=== PATIENT | female | born 1940 | race Caucasian/White ===

== ENCOUNTER → 2019-10-07 08:51 | Outpatient (BNVA) | payer MEDICARE, MEDICAID, SELFPAY | PROVIDERS: Family Provider Nurse Practitioner; Visit Provider Nurse Practitioner Family | DX: E11.9 Type 2 diabetes mellitus without complications (principal); R07.9 Chest pain, unspecified; I10 Essential (primary) hypertension | CPT/HCPCS: 80061; 83036 ==

== ENCOUNTER 2019-10-09 23:34 | Emergency (ER) | payer MEDICARE, MEDICAID, SELFPAY ==
--- NOTE | 2019-10-09 23:40 | XR_ITS ---
WS: [id number] PORTABLE CHEST HISTORY: cp COMPARISON: 09/07/2018 Hyperinflated lungs with emphysema. No pneumonia. Eventration RIGHT hemidiaphragm. Normal vasculature. No pleural effusion or pneumothorax. Cardiac size: Normal. Mediastinum/Aorta: Ectatic thoracic aorta with mild atherosclerosis. No osseous abnormality seen. XR/XR chest 1V portable [id number] IMPRESSION: Stable chest with mild chronic emphysema.
--- NOTE | 2019-10-09 23:40 | ECG_ITS ---
Measurements Intervals [place] Rate: 63 P: 62 WI: 242 QRS: 63 QRSD: 89 T: 54 QT: 376 QTc: 388 SINUS RHYTHM WITH FIRST DEGREE AV BLOCK Compared to ECG 04/21/2018 02:40:10 Sinus bradycardia no longer present Electronically Signed On 10-10-2019 20:04:35 PUBLIC ADDRESS SYSTEM INSTALLER by Kalyn Tyler M.D. [id number]
--- NOTE | 2019-10-09 23:44 | ED_ITS ---
Entered by Idalia Phillips, acting as scribe for Cesar Fuentes DO Oct 09, 2019 23:34 HPI - Chest Pain General: Chief Complaint: Chest Pain Stated Complaint: CHEST PAIN Time Seen by Provider: 10/09/19 23:40 Source: patient Mode of arrival: EMS Limitations: no limitations History of Present Illness: HPI narrative: 79 yo f came to the er [facility] Ems for chest pain. Onset was today. Pt states that she is having some chest pain. Pts family states that the longterm staff gave her 3 nitro. Family states that also has had a cough. MD complaint: chest pain and other (cough) Onset (ago): day(s) (today) Timing of current episode: still present Prior episodes: Yes Onset: during rest Severity: mild Quality: tightness Relieving factors: nothing Exacerbating factors: nothing Associated symptoms: Deny fever(s) or syncope Treatment prior to arrival: aspirin (325) and nitroglycerin (3) Related Data: On Oral Contraceptives: No Review of Systems Const: Denies: fever or chills Eyes: Denies: change in vision ENMT: Denies: throat pain or nasal congestion Card: Reports: chest pain; Denies: irregular heart rhythm, edema or syncope Resp: Reports: productive cough : Denies: difficulty urinating Neuro: Denies: headache or dizziness PFSH ED PFSH: Statuses (acute, chronic, etc) shown below reflect problem list status as previously entered and may not be historically accurate Medical History (Updated 10/10/19 @ 03:20 by Cesar Fuentes DO) Chest pain (Acute) Diabetes (Acute) HTN (hypertension) (Acute) Osteoporosis (Acute) Social History (Updated 10/07/19 @ 08:35 by Idalia Araujo LPN) Smoking and tobacco status: never smoked Alcohol intake: never Caregiver/support person: Yes Household members: caregiver Housing: House Marital status: Single Physical Exam Const: GENERAL APPEARANCE: well developed ORIENTATION/CONSCIOUSNESS: Yes oriented to person and Yes oriented to place; not oriented to time HENMT: COMMON NORMALS: normocephalic, external ears normal and external nose normal HEAD & SCALP: normocephalic; no scalp tenderness FACE & SINUS: normal facial exam NOSE: external nose normal and no nasal discharge EXTERNAL EAR: Yes external ears normal THROAT: posterior oropharynx normal Eye: COMMON NORMALS: PERRL and conjunctivae normal EYELID: eyelids normal CONJUNCTIVA: Yes conjunctivae normal PUPIL: Yes PERRL Chest: COMMONS NORMALS: inspection of chest normal CHEST: No tenderness Resp: COMMON NORMALS: clear to auscultation bilaterally EFFORT & INSPECTION: No tachypneic, No respiratory distress, No retractions, No uses accessory muscles and No tracheal deviation AUSCULTATION: clear to auscultation bilaterally, no rhonchi, no wheezes and lung sounds not diminished Cardio: COMMON NORMALS: regular rate and regular rhythm RATE: regular rate RHYTHM: regular rhythm HEART SOUNDS: no murmurs PERIPHERAL PULSES: radial pulses present GI: INSPECTION: No abdominal distension AUSCULTATION: No hyperactive bowel sounds and No hypoactive bowel sounds PALPATION: No guarding and No rigid PERCUSSION: no dullness to percussion and no tympanic to percussion Neuro: SENSORIUM/ORIENTATION: Yes oriented to person, Yes oriented to place and No oriented to time Psych: COMMON NORMALS: mental status grossly normal Skin: COMMON NORMALS: no rashes or lesions noted GENERAL SKIN EXAM: no rashes or lesions noted Course Vital Signs: Vital signs: Vital Signs Temperature 97.3 F L 10/09/19 23:50 Pulse Rate 62 10/10/19 02:19 Respiratory Rate 16 10/10/19 02:19 Blood Pressure 109/54 10/10/19 02:19 Pulse Oximetry 94 10/10/19 02:19 MDM - Chest Pain MDM Narrative: Medical decision making narrative: 79-year-old female with chest discomfort. No improvement with nitroglycerin. Vitals are normal. Hemoglobin is 10.5. White blood cell count 6.6. Other laboratory is benign. X-rays show no pneumonia. EKG shows a sinus bradycardia with first-degree AV block. This is in 2 separate settings, 2 hours apart. Her troponin did not elevate. Lab Data: Labs: Lab Results 10/09/19 10/09/19 10/09/19 Range/Units 00:06 00:06 00:06 WBC 6.6 (4.0-10.0) 10^3/ uL RBC 3.56 L (4.1-5.3) 10^6/u L Hgb 10.5 L (11.5-15.3) g/dL Hct 32.8 L (37.0-47.0) % MCV 92.1 (81-99) fL MCH 29.5 (28.0-34.0) pg MCHC 32.0 (30.0-36.0) g/dL RDW 13.4 (12.1-15.1) % Plt Count 228 (130-400) 10^3/c mm MPV 11.3 H (7.4-10.4) fL Neut % (Auto) 41.5 % Lymph % (Auto) 40.3 % Hern[place] % (Auto) 13.2 % Eos % (Auto) 4.0 % Baso % (Auto) 0.8 % Neut # (Auto) 2.7 (1.8-7.7) 10^3/u L Lymph # (Auto) 2.7 (0.8-4.8) 10^3/u L Hernando # (Auto) 0.9 (0.2-0.9) 10^3/u L Eos # (Auto) 0.3 (0.0-0.8) 10^3/u L Baso # (Auto) 0.1 (0.0-0.1) 10^3/u L Nucleated RBC % (a uto) 0 % Nucleated RBCs # 0.0 /100WBC PT 13.30 (10.5-13.3) SECO NDS INR 0.98 (0.8-1.2) APTT 27.2 (23.9-36.7) SECO NDS Sodium 134 L (136-145) mmol/L Potassium 4.1 (3.5-5.1) mmol/L Chloride 100 (98-107) mmol/L Carbon Dioxide 26 (22-29) mmol/L Anion Gap 12.1 (5-19) BUN 15 (8-23) mg/dL Creatinine 0.8 (0.5-0.9) mg/dL Glucose 109 (65-115) mg/dL Calcium 10.1 (8.5-10.5) mg/dL Total Bilirubin 0.2 (0.15-1.2) mg/dL AST 18 (0-32) U/L ALT 11 (0-33) U/L Alkaline Phosphata se 68 (35-105) IU/L Troponin T Baselin e (0-10) ng/mL Troponin T 120 Min [place] (0-10) ng/mL Delta Troponin T (0-10) ABS# NT-Pro-B Natriuret Pep 24 (0-450) pg/mL Total Protein 6.9 (6.6-8.7) g/dL Albumin 3.7 (3.5-5.2) g/dL Globulin 3.2 (1.3-4.6) g/dL Urine Color (Yellow) Urine Appearance (CLEAR) Urine pH (5-7) Ur Specific Gravit y (1.005-1.030) Urine Protein (Negative) Urine Glucose (UA) (Normal) Urine Ketones (Negative) Urine Occult Blood (Negative) Urine Nitrate (Negative) Urine Bilirubin (NEGATIVE) Urine Urobilinogen (Negative) mg/dL Ur Leukocyte Gloria ase (Negative) 10/09/19 10/10/19 10/10/19 Range/Units 00:06 01:35 02:05 WBC (4.0-10.0) 10^3/ uL RBC (4.1-5.3) 10^6/u L Hgb (11.5-15.3) g/dL Hct (37.0-47.0) % MCV (81-99) fL MCH (28.0-34.0) pg MCHC (30.0-36.0) g/dL RDW (12.1-15.1) % Plt Count (130-400) 10^3/c mm MPV (7.4-10.4) fL Neut % (Auto) % Lymph % (Auto) % Hernando % (Auto) % Eos % (Auto) % Baso % (Auto) % Neut # (Auto) (1.8-7.7) 10^3/u L Lymph # (Auto) (0.8-4.8) 10^3/u L [place] # (Auto) (0.2-0.9) 10^3/u L Eos # (Auto) (0.0-0.8) 10^3/u L Baso # (Auto) (0.0-0.1) 10^3/u L Nucleated RBC % (a uto) % Nucleated RBCs # /100WBC PT (10.5-13.3) SECO NDS INR (0.8-1.2) APTT (23.9-36.7) SECO NDS Sodium (136-145) mmol/L Potassium (3.5-5.1) mmol/L Chloride (98-107) mmol/L Carbon Dioxide (22-29) mmol/L Anion Gap (5-19) BUN (8-23) mg/dL Creatinine (0.5-0.9) mg/dL Glucose (65-115) mg/dL Calcium (8.5-10.5) mg/dL Total Bilirubin (0.15-1.2) mg/dL AST (0-32) U/L ALT (0-33) U/L Alkaline Phosphata se (35-105) IU/L Troponin T Baselin e 10 (0-10) ng/mL Troponin T 120 Min [place] 9.36 (0-10) ng/mL Delta Troponin T -0.64 L (0-10) ABS# NT-Pro-B Natriuret Pep (0-450) pg/mL Total Protein (6.6-8.7) g/dL Albumin (3.5-5.2) g/dL Globulin (1.3-4.6) g/dL Urine Color Yellow (Yellow) Urine Appearance Clear (CLEAR) Urine pH 5 (5-7) Ur Specific Gravit y 1.020 (1.005-1.030) Urine Protein Neg (Negative) Urine Glucose (UA) Norm (Normal) Urine Ketones Negative (Negative) Urine Occult Blood Neg (Negative) Urine Nitrate Negative (Negative) Urine Bilirubin Neg (NEGATIVE) Urine Urobilinogen 1 H (Negative) mg/dL Ur Leukocyte Gloria ase Negative (Negative) Discharge Plan Discharge Patient Disposition: Home, Self-Care Clinical Impression: Chest pain Qualifiers: Chest pain type: unspecified Qualified Code(s): R07.9 - Chest pain, unspecified Condition: Stable Prescriptions: No Action metformin 500 mg tablet 500 mg PO BID RF: 0 albuterol sulfate [ProAir HFA] 90 mcg/actuation HFA aerosol inhaler 2 puff INHALATION Q6H PRN (Reason: Shortness Of Breath Or Wheezing) RF: 0 promethazine-DM 6.25-15 mg/5 mL syrup 5 ml PO Q6H PRN (Reason: Cough) RF: 0 paroxetine HCl 20 mg tablet 20 mg PO QDAY RF: 0 rivastigmine tartrate 3 mg capsule 3 mg PO BID RF: 0 omeprazole 20 mg capsule,delayed release(DR/EC) 40 mg PO QDAY RF: 0 omega-3 fatty acids [Fish Oil Concentrate] 1,000 mg capsule 1,000 mg PO BID RF: 0 Calcium 600 + Minerals 600 mg calcium- 200 unit tablet 1 tab PO BID RF: 0 meloxicam [Mobic] 15 mg tablet 15 mg PO QDAY RF: 0 lisinopril 5 mg tablet 5 mg PO QDAY RF: 0 raloxifene 60 mg tablet 60 mg PO QDAY RF: 0 acetaminophen [Tylenol] 325 mg tablet 325 mg PO QID PRN (Reason: Pain, Moderate) RF: 0 loperamide 2 mg capsule 4 mg PO DIRECTED PRN (Reason: Diarrhea) RF: 0 calcitonin (salmon) 200 unit/actuation spray,non-aerosol 1 spray intranasal (ALT) QDAY RF: 0 isosorbide mononitrate 30 mg Tablet Extended Release 24 Hr 15 mg PO BID RF: 0 ondansetron 8 mg Tablet,Disintegrating 8 mg PO Q8H PRN (Reason: Nausea) RF: 0 nitroglycerin 0.4 mg Tablet, Sublingual 0.4 mg SUBLINGUAL Q5M PRN (Reason: Chest Pain) RF: 0 Vitamin D2 1,250 mcg (50,000 unit) Capsule 50,000 unit PO DIRECTED RF: 0 Discharge Orders: Discharge Order (Routine); Ordered 10/10/19 Ordered By: Cesar Fuentes Referrals: Sharon Nava, [employer] [Family Provider] - Discharge Diet: Advance as tolerated Discharge Activity: Increase activity as tolerated Patient Instructions: Chest Pain (ED) Activity Restrictions/Additional Instructions: Return for worsening chest pain, shortness of breath, fever greater than 100, productive cough, other concerning symptoms Coding Level of Care Code ED Director Athletic for Chg Fwd The documentation recorded by the Alan massey Stephanie Lyn, accurately reflects the service I personally performed and the decisions made by Alfredo marcus Jeremy John, DO Oct 09, 2019 23:34
[2019-10-09 23:50] VITALS: BP 123/87; PULSE 64; RESP 16; TEMP 36.3; O2SAT 96; BMI 23.8
[2019-10-10 00:18] LABS: Basophils # 0.1 10^3/uL (0.0-0.1); Basophils % 0.8 %; Eosinophils # 0.3 10^3/uL (0.0-0.8); Hematocrit 32.8 % (37.0-47.0); Hemoglobin 10.5 g/dL (11.5-15.3); Lymphocytes # 2.7 10^3/uL (0.8-4.8); Lymphocytes % 40.3 %; Mean Corpuscular Hemoglobin 29.5 pg (28.0-34.0); Mean Corpuscular Volume 92.1 fL (81-99); Mean Platelet Volume 11.3 fL (7.4-10.4); Monocytes # 0.9 10^3/uL (0.2-0.9); Monocytes % 13.2 %; Neutrophils # 2.7 10^3/uL (1.8-7.7); Neutrophils % 41.5 %; Nucleated Red Blood Cells % 0 %; Platelet Count 228 10^3/cmm (130-400); Red Blood Count 3.56 10^6/uL (4.1-5.3); Red Cell Distribution Width 13.4 % (12.1-15.1); White Blood Count 6.6 10^3/uL (4.0-10.0)
[2019-10-10 00:31] LABS: INR 0.98 (0.8-1.2)
[2019-10-10 00:32] LABS: Partial Thromboplastin Time 27.2 SECONDS (23.9-36.7)
[2019-10-10 00:38] LABS: Troponin(5th) Baseline 10 ng/mL (0-10)
[2019-10-10 00:46] LABS: Alanine Aminotransferase 11 U/L (0-33); Albumin Level 3.7 g/dL (3.5-5.2); Alkaline Phosphatase 68 IU/L (35-105); Anion Gap 12.1 (5-19); Aspartate Amino Transferase 18 U/L (0-32); Blood Urea Nitrogen 15 mg/dL (8-23); Calcium 10.1 mg/dL (8.5-10.5); Carbon Dioxide 26 mmol/L (22-29); Chloride 100 mmol/L (98-107); Globulin 3.2 g/dL (1.3-4.6); Glucose 109 mg/dL (65-115); NT Pro B Type Natriuretic Pept 24 pg/mL (0-450); Potassium 4.1 mmol/L (3.5-5.1); Sodium 134 mmol/L (136-145); Total Bilirubin 0.2 mg/dL (0.15-1.2); Total Protein 6.9 g/dL (6.6-8.7)
[2019-10-10] MEDS: alum-mag-hydroxide-sime 30 mL UDC 10 ML PO (01:04)
[2019-10-10] MEDS: lidocaine 2% viscous 15 mL UDC 10 ML MUCOUS MEM (01:04)
[2019-10-10 01:06] VITALS: PULSE 65; RESP 16; O2SAT 94
--- NOTE | 2019-10-10 01:40 | ECG_ITS ---
Measurements Intervals [place] Rate: 58 P: 61 NM: 240 QRS: 53 QRSD: 89 T: 57 QT: 382 QTc: 378 SINUS BRADYCARDIA WITH FIRST DEGREE AV BLOCK Compared to ECG 04/21/2018 02:40:10 No significant changes Electronically Signed On 10-10-2019 20:07:56 BULK SYSTEM OPERATOR by Kalyn Tyler M.D. [id number]
[2019-10-10 01:50] LABS: Add Urine Microscopic? NO
[2019-10-10] MEDS: ondansetron 2 mg/ML SDV 2 mL 4 MG IVP (02:15)
[2019-10-10 02:16] VITALS: RESP 16
[2019-10-10] MEDS: morphine 4 mg/mL SDV 1 mL 2 MG IVP (02:16)
[2019-10-10 02:19] VITALS: BP 109/54; PULSE 62; RESP 16; O2SAT 94
[2019-10-10 02:39] LABS: Troponin 5 2HR 9.36 ng/mL (0-10)
[2019-10-10 02:39] LABS: Bilirubin Urine Neg (NEGATIVE); Blood Urine Neg (Negative); Glucose Urine UA Norm (Normal); Ketones Urine Negative (Negative); Leukocyte Esterase Urine Negative (Negative); Nitrate Urine Negative (Negative); Protein Urine Neg (Negative); Urine Appearance Clear (CLEAR); Urine Color Yellow (Yellow); Urobilinogen Urine 1 mg/dL (Negative); pH Urine 5 (5-7)
[2019-10-10 02:40] LABS: Troponin 5 2HR Delta -0.64 ABS# (0-10)
[2019-10-10 04:22] VITALS: BP 102/56; PULSE 68; RESP 16; O2SAT 94
== END 2019-10-10 04:23 | disposition home or self-care (01) ==
PROVIDERS: Emergency Provider Emergency Medicine; Family Provider Nurse Practitioner
DX: R07.9 Chest pain, unspecified (principal); Z79.84 Long term (current) use of oral hypoglycemic drugs; E11.9 Type 2 diabetes mellitus without complications; I10 Essential (primary) hypertension
CPT/HCPCS: 71045; 80053; 81003; 83880; 84484; 85025; 85610; 85730; 93005; 96374; 96375; 99282; 99284; A9270; J2270; J2405

== ENCOUNTER → 2019-10-17 12:58 | Outpatient (BNVA) | payer MEDICARE, MEDICAID, SELFPAY | PROVIDERS: Family Provider Nurse Practitioner; Visit Provider Specialist | DX: F03.90 Unspecified dementia, unspecified severity, without behavioral disturbance, psychotic disturbance, mood disturbance, and anxiety (principal); F02.80 Dementia in other diseases classified elsewhere, unspecified severity, without behavioral disturbance, psychotic disturbance, mood disturbance, and anxiety | CPT/HCPCS: 99213 ==

== ENCOUNTER 2019-12-15 08:03 | Outpatient (CLI) | payer MEDICARE, MEDICAID, SELFPAY ==
[2019-12-15 08:54] VITALS: BMI 20.7
--- NOTE | 2019-12-15 09:01 | ECG_ITS ---
NAME OF STUDY: LEXISCAN SESTAMIBI STRESS TEST INDICATION: Chest Pain PROCEDURE: At the baseline, the blood pressure was 133/77 mmHg, oxygen saturation 93% with a heart rate of 53 bpm. The electrocardiogram showed possibly sinus rhythm, normal axis with poor baseline. The Lexiscan was infused over a period of 20 seconds. A total of 0.4 milligrams of Lexiscan was infused. The stress phase was continued for a total of 5 minutes. Heart rate at the end of the stress phase was 74 bpm, oxygen saturation 94% with a blood pressure 134/68 mmHg. The EKG at the peak infusion revealed no significant ST-T wave changes. Sestamibi was injected 20 seconds after the Lexiscan infusion. Blood pressure at the end of the recovery phase was 137/69 mmHg, oxygen saturation 95% with a heart rate of 72 beats per minute. CONCLUSION: 1. No significant EKG changes with the LexiScan infusion. 2. No LexiScan induced chest pain or cardiac arrhythmia. 3. Normal blood pressure and heart rate response. 4. Sestamibi/sestamibi perfusion scan pending; see separate report. Electronically Signed On 12-15-2019 15:25:50 CDT by Nancy Herring M.D. [id number]
--- NOTE | 2019-12-15 09:01 | NMCV_ITS ---
NM yazan perf SPECT r/s* [id number] Kristi Marinelli Age: 79 Gender: F : 1940 Exam Date: 12/15/2019 09:40 Ordering Phys: Nancy Herring MD ([email or web address]) Technologist: LEXY Nolasco Exam Location: [facility] Indications: CHEST PAIN STRESS TEST Please see separate stress test report in [facility] for full findings IMAGE PROTOCOL Rest/Stress 1 Lexiscan Day Radiopharmaceutical Dose (mCi) Administration Site Administered by Rest: Tc-99m 10.7 IV LEXY Nolasco Sestamibi Stress:Tc-99m 32.4 IV LEXY Ruiz Sestamibi Rest: 15-Dec-2019 60 Discovery 630 Stress: 15-Dec-2019 30 Discovery 630 0.4mg Lexiscan. Images obtained in supine and prone position. SPECT RESULTS Technical Quality: Excellent Raw Data Analysis: Normal Image Corrections: Patient motion artifact - motion correction applied to stress and rest images. Summed Stress Score: 1 Summed Rest Score: 2 Summed Difference Score: 0 PERFUSION FINDINGS Small size perfusion abnormality of mild severity of apical inferior wall with improved tracer uptake on stress images. Very small sized fixed defect of apical garcia on rest and stress images. FUNCTIONAL RESULTS (calculated via Gated SPECT) Stress Image LV EF (%): 75 Stress EDV (mL):64 TID: 0.97 Stress ESV (mL):16 FUNCTIONAL FINDINGS: The left ventricle is normal in size. Transient Ischemia Dilatation of 0.97. There is normal left ventricular systolic function. The left ventricular ejection fraction is normal with a value of 75%. There is normal left ventricular wall thickening. Normal end-diastolic and end-systolic volumes. IMPRESSIONS 1. Small size perfusion abnormality of mild severity of apical inferior and apical garcia. These findings are likely suggestive of attenuation artifact. 2. Overall left ventricular systolic function is normal without regional wall motion abnormalities. 3. The left ventricular ejection fraction is normal with a value of 75%. 4. No coronary ischemia based on the study. Nancy Herring MD (Electronically Signed) Final Date: 15 December 2019 15:32 S
--- NOTE | 2019-12-15 10:19 | SUR.PREOP ---
Patient reports no pain or discomfort prior to the start of the procedure.
[2019-12-15] MEDS: regadenoson 0.4 Mg/5 ml Syringe IVP (10:24)
== END 2019-12-15 08:04 | disposition home or self-care (01) ==
LOC: RAD 08:09
PROVIDERS: Family Provider Nurse Practitioner; PCP Nurse Practitioner; Visit Provider Internal Medicine Cardiovascular Disease
DX: R07.9 Chest pain, unspecified (principal)
CPT/HCPCS: 78452; 93017; A9500; J2785

== ENCOUNTER → 2020-01-04 09:21 | Outpatient (BNVA) | payer MEDICARE, MEDICAID, SELFPAY | PROVIDERS: Family Provider Nurse Practitioner; PCP Nurse Practitioner; Visit Provider Nurse Practitioner | DX: R53.83 Other fatigue (principal); E11.9 Type 2 diabetes mellitus without complications; E55.9 Vitamin D deficiency, unspecified; R07.9 Chest pain, unspecified; K21.9 Gastro-esophageal reflux disease without esophagitis; I10 Essential (primary) hypertension | CPT/HCPCS: 80053; 81000; 82044; 82607; 83036; 84443; 85025 ==

== ENCOUNTER → 2020-01-30 10:30 | Outpatient (BNVA) | payer MEDICARE, MEDICAID, SELFPAY | PROVIDERS: Family Provider Nurse Practitioner; PCP Nurse Practitioner; Visit Provider Nurse Practitioner | DX: E11.9 Type 2 diabetes mellitus without complications (principal); Z11.1 Encounter for screening for respiratory tuberculosis; I10 Essential (primary) hypertension; F79 Unspecified intellectual disabilities; K21.9 Gastro-esophageal reflux disease without esophagitis | CPT/HCPCS: 80053; 81000; 86580 ==

== ENCOUNTER → 2020-02-27 09:05 | Outpatient (BNVA) | payer MEDICARE, MEDICAID, SELFPAY | PROVIDERS: Family Provider Nurse Practitioner; PCP Nurse Practitioner; Visit Provider Nurse Practitioner | DX: E83.52 Hypercalcemia (principal) | CPT/HCPCS: 82310; 83970 ==

== ENCOUNTER → 2020-03-27 14:15 | Outpatient (BNVA) | payer MEDICARE, MEDICAID, SELFPAY | PROVIDERS: Family Provider Nurse Practitioner; PCP Nurse Practitioner; Visit Provider Nurse Practitioner | DX: R05 Cough (principal) | CPT/HCPCS: 71046 ==

== ENCOUNTER → 2020-04-05 09:27 | Outpatient (BNVA) | payer MEDICARE, MEDICAID, SELFPAY | PROVIDERS: Family Provider Nurse Practitioner; PCP Nurse Practitioner; Visit Provider Nurse Practitioner | DX: E11.9 Type 2 diabetes mellitus without complications (principal); E55.9 Vitamin D deficiency, unspecified; R07.9 Chest pain, unspecified; K21.9 Gastro-esophageal reflux disease without esophagitis; J43.9 Emphysema, unspecified; J40 Bronchitis, not specified as acute or chronic; R05 Cough | CPT/HCPCS: 80053; 83036; 85025 ==

== ENCOUNTER → 2020-04-18 08:21 | Outpatient (BNVA) | payer MEDICARE, MEDICAID, SELFPAY | PROVIDERS: Family Provider Nurse Practitioner; PCP Nurse Practitioner; Visit Provider Specialist | DX: G31.83 Neurocognitive disorder with Lewy bodies (principal); F02.80 Dementia in other diseases classified elsewhere, unspecified severity, without behavioral disturbance, psychotic disturbance, mood disturbance, and anxiety | CPT/HCPCS: 99213 ==

== ENCOUNTER 2020-06-15 13:36 | Outpatient (CLI) | payer MEDICARE, MEDICAID, SELFPAY ==
--- NOTE | 2020-06-15 14:07 | XR_ITS ---
WS: [id number] Bone mineral density performed on a Personeta IDXA 06/15/2020 Clinical data: POST MENOPAUSAL Comparison study: DEXA scan, 02/08/2015. Findings: The first 4 lumbar vertebral bodies demonstrated the bone mineral density of 1.381 g/cm2 for a young adult T score of 1.7. Measurement of the left hip reveals a bone mineral density of 0.791 g/cm2 with a young adult T score of -1.7. Measurement of the right hip reveals the bone mineral density of 0.775 g/cm2 for young adult T score of -1.9. XR/XR DEXA axial skeleton* [id number] Impression: 1. Normal bone mineral density of the lumbar spine although the bone mineral de nsity has diminished slightly from before. 2. Osteopenia of both hips with a slight decrease in bone mineral density from the previous study.
== END 2020-06-15 13:37 | disposition home or self-care (01) ==
LOC: RADWPI 13:40
PROVIDERS: Family Provider Nurse Practitioner; PCP Nurse Practitioner; Visit Provider Nurse Practitioner Family
DX: Z78.0 Asymptomatic menopausal state (principal); M85.88 Other specified disorders of bone density and structure, other site
CPT/HCPCS: 77080

== ENCOUNTER 2020-06-27 13:30 | Outpatient (CLI) | payer MEDICARE, MEDICAID, SELFPAY ==
--- NOTE | 2020-06-27 13:38 | MM_ITS ---
WS: [id number] BILATERAL SCREENING DIGITAL MAMMOGRAM WITH CAD HISTORY: HX OF BREAST CA COMPARISON: 04/28/2019, 09/02/2018 and 08/17/2017 Bilateral CC and MLO views submitted. Computer aided detection analyzed. Breast composition: There are scattered areas of fibroglandular density. No suspicious masses, microc alcifications or architectural distortion. Numerous benign calcifications in each breast. Biopsy clip with architectural distortion in the central RIGHT breast is stable. No change in the fibroglandular pattern in the LEFT breast. MM/[id number] IMPRESSION: BI-RADS: 2-Benign FOLLOW UP: 1 Year Follow-up
== END 2020-06-27 13:31 | disposition home or self-care (01) ==
LOC: RADSHAW 13:36
PROVIDERS: PCP Nurse Practitioner; Visit Provider Nurse Practitioner
DX: Z85.3 Personal history of malignant neoplasm of breast (principal)
CPT/HCPCS: 77066

== ENCOUNTER → 2020-08-01 09:16 | Outpatient (BNVA) | payer MEDICARE, MEDICAID, SELFPAY | PROVIDERS: PCP Nurse Practitioner; Visit Provider Specialist | DX: G31.83 Neurocognitive disorder with Lewy bodies (principal); F02.80 Dementia in other diseases classified elsewhere, unspecified severity, without behavioral disturbance, psychotic disturbance, mood disturbance, and anxiety | CPT/HCPCS: 99213 ==

== ENCOUNTER → 2020-08-02 10:38 | Outpatient (BNVA) | payer MEDICARE, MEDICAID, SELFPAY | PROVIDERS: PCP Nurse Practitioner; Visit Provider Nurse Practitioner | DX: E11.9 Type 2 diabetes mellitus without complications (principal) | CPT/HCPCS: 80053; 80061; 82043; 83036; 83735 ==

== ENCOUNTER → 2020-10-25 08:53 | Outpatient (BNVA) | payer MEDICARE, MEDICAID, SELFPAY | PROVIDERS: PCP Nurse Practitioner; Visit Provider Nurse Practitioner Family | DX: E11.9 Type 2 diabetes mellitus without complications (principal); E55.9 Vitamin D deficiency, unspecified; K21.9 Gastro-esophageal reflux disease without esophagitis; I25.10 Atherosclerotic heart disease of native coronary artery without angina pectoris; I10 Essential (primary) hypertension; J43.9 Emphysema, unspecified; F79 Unspecified intellectual disabilities | CPT/HCPCS: 80053; 80061; 82306; 83036; 84443; 85025 ==

== ENCOUNTER → 2021-01-08 08:42 | Outpatient (BNVA) | payer MEDICARE, MEDICAID, SELFPAY | PROVIDERS: PCP Nurse Practitioner; Visit Provider Nurse Practitioner | DX: E11.9 Type 2 diabetes mellitus without complications (principal); I10 Essential (primary) hypertension; E55.9 Vitamin D deficiency, unspecified; I25.10 Atherosclerotic heart disease of native coronary artery without angina pectoris; F43.12 Post-traumatic stress disorder, chronic | CPT/HCPCS: 80053; 80061; 83036; 85025; 86580 ==

== ENCOUNTER → 2021-01-09 09:06 | Outpatient (BNVA) | payer MEDICARE, MEDICAID, SELFPAY | PROVIDERS: PCP Nurse Practitioner; Visit Provider Specialist | DX: G31.83 Neurocognitive disorder with Lewy bodies (principal); F02.80 Dementia in other diseases classified elsewhere, unspecified severity, without behavioral disturbance, psychotic disturbance, mood disturbance, and anxiety | CPT/HCPCS: 99213 ==

== ENCOUNTER → 2021-07-30 10:28 | Outpatient (BNVA) | payer MEDICARE, MEDICAID, SELFPAY | PROVIDERS: PCP Nurse Practitioner; Visit Provider Specialist | DX: G31.83 Neurocognitive disorder with Lewy bodies (principal); F02.80 Dementia in other diseases classified elsewhere, unspecified severity, without behavioral disturbance, psychotic disturbance, mood disturbance, and anxiety | CPT/HCPCS: 99213 ==

== ENCOUNTER 2021-08-06 09:39 | Outpatient (CLI) | payer MEDICARE, MEDICAID, SELFPAY ==
--- NOTE | 2021-08-06 10:00 | MM_ITS ---
WS: [id number] BILATERAL DIGITAL DIAGNOSTIC MAMMOGRAM MAMMOGRAPHY WITH CAD CLINICAL INFORMATION: Z85.3 - Personal history of malignant neoplasm of breast HISTORY: COMPARISON: June 27, 2020 TECHNIQUE: Bilateral CC, MLO, and ML views. FINDINGS: Scattered fibroglandular densities bilaterally. Punctate and lucent centered calcifications. Secretor y rodlike calcifications. Biopsy marker right breast with parenchymal scarring. No suspicious focal mass, asymmetry, calcifications, or architectural distortion. No evidence of esther gnancy. MM/[id number] IMPRESSION: BI-RADS: 2-Benign FOLLOW UP: 1 Year Follow-up Recommend return to annual diagnostic mammography.
== END 2021-08-06 09:40 | disposition home or self-care (01) ==
LOC: RADSHAW 09:49
PROVIDERS: PCP Nurse Practitioner; Visit Provider Nurse Practitioner
DX: Z85.3 Personal history of malignant neoplasm of breast (principal)
CPT/HCPCS: 77066

== ENCOUNTER → 2022-01-01 09:42 | Outpatient (BNVA) | payer MEDICARE, MEDICAID, SELFPAY | PROVIDERS: PCP Nurse Practitioner; Visit Provider Nurse Practitioner | DX: E11.9 Type 2 diabetes mellitus without complications (principal); E55.9 Vitamin D deficiency, unspecified; I25.10 Atherosclerotic heart disease of native coronary artery without angina pectoris; I10 Essential (primary) hypertension | CPT/HCPCS: 80053; 80061; 82043; 82306; 83036; 84443; 85025 ==

== ENCOUNTER → 2022-07-15 08:28 | Outpatient (BNVA) | payer MEDICARE, MEDICAID, SELFPAY | PROVIDERS: PCP Nurse Practitioner; Visit Provider Specialist | DX: G30.9 Alzheimer's disease, unspecified (principal); F02.80 Dementia in other diseases classified elsewhere, unspecified severity, without behavioral disturbance, psychotic disturbance, mood disturbance, and anxiety; R26.89 Other abnormalities of gait and mobility | CPT/HCPCS: 99213 ==

== ENCOUNTER → 2022-08-05 09:13 | Outpatient (BNVA) | payer MEDICARE, MEDICAID, SELFPAY | PROVIDERS: PCP Nurse Practitioner; Visit Provider Nurse Practitioner | DX: E11.9 Type 2 diabetes mellitus without complications (principal); E55.9 Vitamin D deficiency, unspecified | CPT/HCPCS: 80053; 80061; 82306; 83036 ==

== ENCOUNTER 2022-08-07 09:39 | Outpatient (CLI) | payer MEDICARE, MEDICAID, SELFPAY ==
--- NOTE | 2022-08-07 09:49 | MM_ITS ---
WS: [id number] DIAGNOSTIC BILATERAL DIGITAL MAMMOGRAPHY WITH CAD HISTORY: Evaluate for neoplasm. History of breast cancer. COMPARISON: 08/06/2021 and 06/27/2020 TECHNIQUE: Bilateral craniocaudad, mediolateral oblique, and mediolateral views are submitted with to mosynthesis and SM. Computer aided detection utilized. Breast composition: There are scattered areas of fibroglandular density. Numerous calcifications are present within each breast. Area of spiculation and distortion with biopsy clip in the posterior cent ral RIGHT breast is stable. No new mass or suspicious grouping of calcifications. MM/[id number] IMPRESSION: BI-RADS: 2-Benign FOLLOW UP: 1 Year Follow-up
== END 2022-08-07 09:40 | disposition home or self-care (01) ==
LOC: RAD 09:41
PROVIDERS: PCP Nurse Practitioner; Visit Provider Nurse Practitioner
DX: Z12.39 Encounter for other screening for malignant neoplasm of breast (principal); Z85.3 Personal history of malignant neoplasm of breast
CPT/HCPCS: 77062; 77066; G0279

== ENCOUNTER → 2022-11-25 11:40 | Outpatient (BNVA) | payer MEDICARE, MEDICAID, SELFPAY | PROVIDERS: PCP Nurse Practitioner; Visit Provider Nurse Practitioner | DX: E78.2 Mixed hyperlipidemia (principal) | CPT/HCPCS: 80053; 80061; 85025 ==

== ENCOUNTER → 2023-02-17 11:53 | Outpatient (BNVA) | payer MEDICARE, MEDICAID, SELFPAY | PROVIDERS: PCP Nurse Practitioner; Visit Provider Nurse Practitioner | DX: G47.9 Sleep disorder, unspecified (principal); M48.02 Spinal stenosis, cervical region; E55.9 Vitamin D deficiency, unspecified; E78.2 Mixed hyperlipidemia; I25.10 Atherosclerotic heart disease of native coronary artery without angina pectoris; E11.9 Type 2 diabetes mellitus without complications; K21.9 Gastro-esophageal reflux disease without esophagitis; J06.9 Acute upper respiratory infection, unspecified | CPT/HCPCS: 80053; 80061; 82306; 83036; 85025 ==

== ENCOUNTER → 2023-02-24 09:44 | Outpatient (BNVA) | payer MEDICARE, MEDICAID, SELFPAY | PROVIDERS: PCP Nurse Practitioner; Visit Provider Specialist | DX: G30.9 Alzheimer's disease, unspecified (principal); F02.B0 Dementia in other diseases classified elsewhere, moderate, without behavioral disturbance, psychotic disturbance, mood disturbance, and anxiety | CPT/HCPCS: 99213 ==

== ENCOUNTER → 2023-04-02 10:35 | Outpatient (BNVA) | payer MEDICARE, MEDICAID, SELFPAY | PROVIDERS: PCP Nurse Practitioner; Visit Provider Nurse Practitioner Family | DX: R19.7 Diarrhea, unspecified (principal) | CPT/HCPCS: 74018; 85025 ==

== ENCOUNTER → 2023-04-06 12:33 | Outpatient (BNVA) | payer MEDICARE, MEDICAID, SELFPAY | PROVIDERS: PCP Nurse Practitioner; Visit Provider Nurse Practitioner | DX: R19.7 Diarrhea, unspecified (principal) | CPT/HCPCS: 87506 ==

== ENCOUNTER → 2023-04-13 14:55 | Outpatient (BNVA) | payer MEDICARE, MEDICAID, SELFPAY | PROVIDERS: PCP Nurse Practitioner; Visit Provider Nurse Practitioner | DX: R19.7 Diarrhea, unspecified (principal) | CPT/HCPCS: 83630; 87493 ==

== ENCOUNTER 2023-04-21 09:02 | Emergency (ER) | payer MEDICARE, MEDICAID, SELFPAY ==
--- NOTE | 2023-04-21 09:06 | ECG_ITS ---
[facility] Test Date: 2023-04-21 Pat Name: Kristi Marinelli Department: Room: Gender: Female Splicer Apprentice: : 1940 Requested By: Carson Laurent Order Number: [id number] Luh MD: Amina Velasquez M.D. Measurements Intervals [place] Rate: 70 P: 62 UT: 213 QRS: 59 QRSD: 70 T: 64 QT: 388 QTc: 419 Interpretive Statements SINUS RHYTHM WITH FIRST DEGREE AV BLOCK SEPTAL MYOCARDIAL INFARCTION , OF INDETERMINATE AGE [40+ ms Q WAVE IN V1/V2] Compared to ECG 10/10/2019 01:45:07 Myocardial infarct finding now present Sinus bradycardia no longer present Electronically Signed On 04-22-2023 19:56:24 CDT by Amina Velasquez M.D. [id number]
--- NOTE | 2023-04-21 09:06 | XR_ITS ---
WS: [id number] EXAMINATION: XR chest 1V portable [id number] REASON FOR EXAM: dyspnea/cough COMPARISON: 03/27/2020 ORDER DATE: 04/21/2023 9:26 AM TECHNIQUE: A single, portable frontal chest x-ray was obtained. X-RAY FINDINGS: The lungs are clear. Pleural spaces are clear. No pleural effusions or pneumothorax. Cardiomediastinal silhouette is unremarkable except for aortic atherosclerosis.. No evidence for pulm onary edema. Soft tissue and osseous structures are unremarkable. There is focal eventration of the medial right hemidiaphragm. IMPRESSION: No acute pulmonary change
--- NOTE | 2023-04-21 09:06 | ED_ITS ---
HPI - General Adult General: Chief complaint: Nausea/Vomiting/Diarrhea Stated complaint: ams , weakness, diarrhea Time Seen by Provider: 04/21/23 09:06 Source: patient Mode of arrival: ambulatory History of Present Illness: 82-year-old female presents emergency room with complaints of chronic diarrhea over the last 5 weeks. She been seen several times her primary care provider stool studies have been done ova and parasites were negative no pathogens. No recent antibiotics C. difficile was negative I have not had any blood in the stool. They are reporting over the last week she has been more confused. She has been started on loperamide she had some fecal incontinence no complaints of back pain or extremity pain. She is diabetic she is on galantamine 4 cognitive deficits she is also on Januvia. Reviewing her chart stool for C. difficile and enteric bacterial pathogens were negative she did have elevated lactoferrin level. Onset (ago): week(s) Relieving factors: none Exacerbating factors: none Associated symptoms: Deny chest pain, confusion, cough, diaphoresis, decreased appetite, dyspnea, fevers/chills, headache(s), malaise, nausea, rash, palpitations, seizures, short of breath, syncope, vomiting or weakness Review of Systems Const: Denies: fever(s), chills, malaise or diaphoresis ENMT: Denies: throat pain, ear or mastoid pain, nasal discharge or nasal congestion Card: Denies: chest pain, palpitations or syncope Resp: Denies: dyspnea GI: Denies: abdominal pain, nausea or vomiting : Denies: flank pain, difficulty voiding, dysuria, urinary frequency or urinary urgency Skin/Breast: Denies: rash Neuro: Denies: headache(s) or confusion PFSH ED PFSH: Medical History Bipolar disorder Cervical stenosis of spine Chest pain COPD (chronic obstructive pulmonary disease) with emphysema Coronary artery disease Depression Diabetes Gastric reflux History of breast cancer History of TIA (transient ischemic attack) HTN (hypertension) Mental disability OCD (obsessive compulsive disorder) Osteoporosis Vitamin D deficiency Surgical History History of lumpectomy Previous back surgery S/P hysterectomy Family History Other Cancer Stroke Social History Smoking and tobacco status: never smoked Second hand smoke exposure: No Smoking risk assessment/counseling performed?: No Alcohol intake: never Desire information about alcohol rehabilitation?: No Counseling given: No Substance/Drug Use: never Desire information about substance/drug rehabilitation?: No Counseling given: No Adopted: No Caregiver/support person: Yes Lives independently: No Household members: caregiver Housing: House Marital status: Single Number of children: 0 service: No Current occupational status: disabled Current occupational exposures/hazards: No Pets and animals: No Do you think of yourself as: Straight/Heterosexual Current gender identity: Female Physical Exam Const: GENERAL APPEARANCE: cooperative and comfortable ORIENTATION/CONSCIOUSNESS: Yes awake HENMT: COMMON NORMALS: normocephalic, atraumatic and hearing grossly normal bilaterally HEAD & SCALP: normocephalic and atraumatic Resp: COMMON NORMALS: normal respiratory effort, No retractions, No use of accessory muscles and clear to auscultation bilaterally AUSCULTATION: clear to auscultation bilaterally Cardio: COMMON NORMALS: regular rate, regular rhythm and No murmurs present (Cardio) RATE: regular rate RHYTHM: regular rhythm GI: COMMON NORMALS: Soft to palpation and No hepatosplenomegaly present AUSCULTATION: Yes normoactive bowel sounds PALPATION: Yes Soft to palpation, No Tenderness to palpation present (GI), No Guarding due to palpation present (GI) and Yes No hepatosplenomegaly present Extremity: COMMON NORMALS: normal to inspection, capillary refill normal, no clubbing, cyanosis or edema, no calf tenderness and no pedal edema Skin: COMMON NORMALS: no rashes or lesions noted GENERAL SKIN EXAM: no rashes or lesions noted Course Vital Signs: Vital signs: Vital Signs Temperature 98.4 F 04/21/23 09:13 Pulse Rate 91 04/21/23 10:02 Respiratory Rate 17 04/21/23 10:02 Blood Pressure 142/70 04/21/23 10:02 Pulse Oximetry 97 04/21/23 10:02 Oxygen Delivery Me thod Room Air 04/21/23 10:02 MDM - General Adult Medical Decision Making Stool for O&P pending. CT shows colitis previous stool culture stool lactoferrin. We will treat for colitis. I Kady have her stop her Januvia which can cause diarrhea her last glycosylated hemoglobin was 5.4 do not know that she needs that full-strength dose or even needs it at all. Follow-up with her primary care doctor if ONP is negative and symptoms do not improve with the antibiotics given she may need to have referral to GI. Medical Records I reviewed the patient's medical records. Lab Data I reviewed the patient's lab results. 04/21/23 09:40 04/21/23 09:40 Laboratory Results WBC 12.4 10^3/uL (4.0-10.0) H 04/21/23 09:40 RBC 3.96 10^6/uL (4.1-5.3) L 04/21/23 09:40 Hgb 11.8 g/dL (11.5-15.3) 04/21/23 09:40 Hct 37.3 % (37.0-47.0) 04/21/23 09:40 MCV 94.2 fl (81-99) 04/21/23 09:40 MCH 29.8 pg (28.0-34.0) 04/21/23 09:40 MCHC 31.6 g/dL (30.0-36.0) 04/21/23 09:40 RDW 13.3 % (12.1-15.1) 04/21/23 09:40 Plt Count 286 10^3/cmm (130-400) 04/21/23 09:40 MPV 10.5 fL (7.4-10.4) H 04/21/23 09:40 Neut % (Auto) 78.2 % 04/21/23 09:40 Lymph % (Auto) 11.6 % 04/21/23 09:40 [place] % (Auto) 7.9 % 04/21/23 09:40 Eos % (Auto) 1.1 % 04/21/23 09:40 Baso % (Auto) 0.6 % 04/21/23 09:40 Neut # (Auto) 9.65 10^3/uL (1.8-7.7) H 04/21/23 09:40 Lymph # (Auto) 1.4 10^3/uL (0.8-4.8) 04/21/23 09:40 [place] # (Auto) 1.0 10^3/uL (0.2-0.9) H 04/21/23 09:40 Eos # (Auto) 0.1 10^3/uL (0.0-0.8) 04/21/23 09:40 Baso # (Auto) 0.1 10^3/uL (0.0-0.1) 04/21/23 09:40 Nucleated RBC % (auto) 0 % 04/21/23 09:40 Nucleated RBCs # 0.0 /100WBC 04/21/23 09:40 Sodium 140 mmol/L (136-145) 04/21/23 09:40 Potassium 3.3 mmol/L (3.5-5.1) L 04/21/23 09:40 Chloride 105 mmol/L (98-107) 04/21/23 09:40 Carbon Dioxide 24 mmol/L (22-29) 04/21/23 09:40 Anion Gap 14.3 (5-19) 04/21/23 09:40 BUN 13 mg/dL (8-23) 04/21/23 09:40 Creatinine 0.6 mg/dL (0.5-0.9) 04/21/23 09:40 GFR Calculation Not Reportable 04/21/23 09:40 Glucose 113 mg/dL (65-115) 04/21/23 09:40 POC Glucose 114 mg/dL (70-110) H 04/21/23 09:26 Calculated Osmolality 291 mOsm/kg (285-295) 04/21/23 09:40 Calcium 9.7 mg/dL (8.5-10.5) 04/21/23 09:40 Total Bilirubin 0.2 mg/dL (0.15-1.2) 04/21/23 09:40 AST 15 U/L (0-32) 04/21/23 09:40 ALT 13 U/L (0-33) 04/21/23 09:40 Alkaline Phosphatase 74 U/L (35-105) 04/21/23 09:40 C-Reactive Protein 3.0 mg/L (0.0-4.9) 04/21/23 09:40 Total Protein 6.5 g/dL (6.6-8.7) L 04/21/23 09:40 Albumin 3.6 g/dL (3.5-5.2) 04/21/23 09:40 Globulin 2.9 g/dL (1.3-4.6) 04/21/23 09:40 TSH 2.22 uIU/mL (0.27-4.20) 04/21/23 09:40 Discharge Plan Discharge Patient Disposition: Home Clinical Impression: Colitis Condition: Stable Prescriptions: New Cipro 500 mg tablet 500 mg PO BID Qty: 14 0RF metronidazole 500 mg tablet 500 mg PO BID 7 Days Qty: 14 0RF Discontinued Januvia 50 mg tablet 50 mg PO DAILY Qty: 30 2RF No Action loperamide 2 mg capsule 4 mg PO DIRECTED PRN (Reason: Diarrhea) Perforomist 20 mcg/2 mL solution for nebulization 2 ml INHALATION Q12H Qty: 120 0RF (DME) nebulizers Misc See Rx Instructions .ROUTE .MEDSUPPLY Qty: 1 0RF Rx Instructions: daily budesonide [Pulmicort] 0.5 mg/2 mL suspension for nebulization 0.5 mg INHALATION BID Qty: 120 0RF (DME) blood-glucose meter [Blood Glucose Monitoring] Kit See Rx Instructions .ROUTE .MEDSUPPLY Qty: 1 0RF Rx Instructions: As directed (DME) lancets [BD Ultra Fine Lancets] 33 gauge misc See Rx Instructions .ROUTE .MEDSUPPLY Qty: 100 2RF Rx Instructions: once every 2 days (DME) Blood Glucose Test Strip See Rx Instructions .ROUTE .MEDSUPPLY Qty: 100 2RF Rx Instructions: check as needed no more than one time day Calcium 600 + Minerals 600 mg calcium- 200 unit tablet 1 tab PO BID Qty: 60 2RF Hold Instructions: Doctor's Order Thera-M 27-0.4 mg tablet 1 tab PO DAILY Qty: 30 2RF cholestyramine (with sugar) [Questran] 4 gram powder in packet 4 g PO BID Qty: 240 2RF Rx Instructions: administer w/meal albuterol sulfate [Ventolin HFA] 90 mcg/actuation HFA aerosol inhaler 2 puff inhalation Q6H PRN galantamine 4 mg tablet 4 mg PO BID 90 Days Qty: 180 3RF Rx Instructions: administer with AM and PM meals melatonin 10 mg capsule 10 mg PO .7pm Qty: 30 2RF acetaminophen [Tylenol Arthritis Pain] 650 mg tablet extended release 650 mg PO Q12H Qty: 60 2RF Rx Instructions: Stop 325mg PRN order ergocalciferol (vitamin D2) [Vitamin D2] 1,250 mcg (50,000 unit) capsule 50,000 unit PO .monthly 28 Days Qty: 1 2RF fenofibrate nanocrystallized [Tricor] 48 mg tablet 48 mg PO DAILY Qty: 30 2RF isosorbide mononitrate 30 mg tablet extended release 24 hr 15 mg PO BID Qty: 30 2RF lisinopril 5 mg tablet 5 mg PO QDAY Qty: 30 2RF magnesium oxide 400 mg magnesium tablet 400 mg PO DAILY Qty: 30 2RF omega-3 fatty acids 1,000 mg capsule 1,000 mg PO BID Qty: 60 2RF omeprazole 20 mg capsule,delayed release(DR/EC) 20 mg PO DAILY Qty: 30 2RF promethazine-DM 6.25-15 mg/5 mL syrup 5 ml PO Q6H PRN (Reason: Cough) Qty: 120 0RF ondansetron 8 mg tablet,disintegrating 8 mg PO Q8H PRN (Reason: Nausea) Qty: 10 0RF memantine [Namenda] 10 mg tablet 10 mg PO BID Qty: 60 11RF olanzapine 5 mg tablet 5 mg PO DAILY Qty: 30 11RF paroxetine HCl 20 mg tablet 20 mg PO QDAY 90 Days Qty: 90 2RF Rx Instructions: take at 8PM dexamethasone 6 mg tablet 6 mg PO DAILY Qty: 21 0RF nitroglycerin 0.4 mg Tablet, Sublingual 0.4 mg SUBLINGUAL Q5M PRN (Reason: Chest Pain) Discharge Orders: Discharge ED (Routine); Ordered 04/21/23 Ordered By: Carson Nash Referrals: Sharon Nava, [facility] [Primary Care Provider] - Discharge Diet: Clear Liquid Discharge Activity: Increase activity as tolerated Patient Instructions: Opioid Safety, Pain Management Activity Restrictions/Additional Instructions: You are seen today for chronic diarrhea stool cultures were done for ova and parasites. Recommend that you stop the Januvia. CT showed some inflammation of the distal portion of the colon we will put you on a 7-day course of ciprofloxacin and Flagyl. If you symptoms or not improving follow-up with your primary care doctor to evaluate for possible referral to gastroenterology Coding Level of Care Code ED Clipper Machine Operator for Miladis Novak
[2023-04-21 09:13] VITALS: BP 153/71; PULSE 64; RESP 18; TEMP 36.9; O2SAT 94
--- NOTE | 2023-04-21 09:22 | CT_ITS ---
WS: [id number] CT ABDOMEN PELVIS TECHNIQUE: Contrast-enhanced CT of the abdomen and pelvis with coronal and sagittal reformatted image s. CLINICAL INFORMATION: abd pain/chronic diarrhea COMPARISON: CT 2017 DLP: 523.[address] scans at [facility] use at least one of these dose optimization techniques: automated e xposure control; mA and/or kV adjustment per patient size (includes targeted exams where dose is matc hed to clinical indication); or iterative reconstruction. FINDINGS: Mild diffuse bladder wall thickening similar to previous. Prior hysterectomy. Mild diffuse wall thick ening involving the sigmoid colon can be seen with infectious or inflammatory colitis. No evidence of high-grade small or large bowel obstruction. Otherwise normal visualized colon. Normal GE junction. Slight bibasilar atelectasis. Hepatomegaly. Diffuse fatty filtration of the liver. Mild intrahepatic biliary ductal dilatation. Normal portal vein and splenic vein. Fatty atrophy of the pancreas. Enlarg ed common bile duct measuring 9.5 mm. This is similar in appearance to 2017. Gallbladder appears norm al. LEFT adrenal lesion measuring 1.5 cm is unchanged. Normal renal parenchymal enhancement. No hydroneph rosis. No obstructing renal or ureteral calculi. Normal caliber abdominal aorta. Aortic calcification. Celiac and SMA appear patent. Tiny fat-containi ng umbilical hernia. Advanced spondylitic lobe changes lumbar spine. Chronic anterior wedging thoraco lumbar junction. Prior vertebroplasty changes at T12. IMPRESSION: 1. Mild wall thickening of the distal sigmoid colon can be seen with infectious or inflammatory coli tis. Colon otherwise appears decompressed. 2. Mild diffuse bladder wall thickening unchanged. 3. Mild chronic common bile duct dilatation measuring 9.5 mm appears similar to previous. Gallbladde r appears normal. 4. Diffuse fatty filtration of the liver with mild hepatomegaly. 5. No other acute findings.
[2023-04-21 09:48] LABS: Basophils # 0.1 10^3/uL (0.0-0.1); Basophils % 0.6 %; Eosinophils # 0.1 10^3/uL (0.0-0.8); Eosinophils % 1.1 %; Hematocrit 37.3 % (37.0-47.0); Hemoglobin 11.8 g/dL (11.5-15.3); Lymphocytes # 1.4 10^3/uL (0.8-4.8); Lymphocytes % 11.6 %; Mean Corpuscular HGB Conc 31.6 g/dL (30.0-36.0); Mean Corpuscular Hemoglobin 29.8 pg (28.0-34.0); Mean Corpuscular Volume 94.2 fl (81-99); Mean Platelet Volume 10.5 fL (7.4-10.4); Monocytes % 7.9 %; Neutrophils # 9.65 10^3/uL (1.8-7.7); Neutrophils % 78.2 %; Nucleated Red Blood Cells % 0 %; Platelet Count 286 10^3/cmm (130-400); Red Blood Count 3.96 10^6/uL (4.1-5.3); Red Cell Distribution Width 13.3 % (12.1-15.1); White Blood Count 12.4 10^3/uL (4.0-10.0)
[2023-04-21 09:49] LABS: Glucose Point of Care 114 mg/dL (70-110)
[2023-04-21 10:02] VITALS: BP 142/70; PULSE 91; RESP 17; O2SAT 97
[2023-04-21 10:21] LABS: Alanine Aminotransferase 13 U/L (0-33); Albumin Level 3.6 g/dL (3.5-5.2); Alkaline Phosphatase 74 U/L (35-105); Anion Gap 14.3 (5-19); Aspartate Amino Transferase 15 U/L (0-32); Blood Urea Nitrogen 13 mg/dL (8-23); Calcium 9.7 mg/dL (8.5-10.5); Carbon Dioxide 24 mmol/L (22-29); Chloride 105 mmol/L (98-107); Creatinine Clr Calc Pharmacy 46.9729; Globulin 2.9 g/dL (1.3-4.6); Glucose 113 mg/dL (65-115); Osmolality Calculated 291 mOsm/kg (285-295); Potassium 3.3 mmol/L (3.5-5.1); Sodium 140 mmol/L (136-145); Thyroid Stimulating Hormone 2.22 uIU/mL (0.27-4.20); Total Bilirubin 0.2 mg/dL (0.15-1.2); Total Protein 6.5 g/dL (6.6-8.7)
[2023-04-21] MEDS: iohexol 350 mg/mL 500 mL Btl (per mL) IV (11:13)
== END 2023-04-21 12:11 | disposition home or self-care (01) ==
PROVIDERS: Emergency Provider Family Medicine; PCP Nurse Practitioner
DX: K52.9 Noninfective gastroenteritis and colitis, unspecified (principal)
CPT/HCPCS: 36415; 36416; 71045; 74177; 80053; 82962; 84443; 85025; 86140; 93005; 99285; Q9967

== ENCOUNTER → 2023-05-05 11:39 | Outpatient (BNVA) | payer MEDICARE, MEDICAID, SELFPAY | PROVIDERS: PCP Nurse Practitioner; Visit Provider Nurse Practitioner | DX: E87.6 Hypokalemia (principal) | CPT/HCPCS: 80048; 85025 ==

== ENCOUNTER → 2023-05-28 15:28 | Outpatient (BNVA) | payer MEDICARE, MEDICAID, SELFPAY | PROVIDERS: PCP Nurse Practitioner; Visit Provider Nurse Practitioner | DX: K52.9 Noninfective gastroenteritis and colitis, unspecified (principal) | CPT/HCPCS: 80053; 85025 ==

== ENCOUNTER → 2023-07-08 15:15 | Outpatient (BNVA) | payer MEDICARE, MEDICAID, SELFPAY | PROVIDERS: PCP Nurse Practitioner; Visit Provider Nurse Practitioner | DX: K52.9 Noninfective gastroenteritis and colitis, unspecified (principal); H91.90 Unspecified hearing loss, unspecified ear | CPT/HCPCS: 80053; 85025 ==

== ENCOUNTER 2023-08-31 17:14 | Inpatient (IN) | payer MEDICARE, MEDICAID, SELFPAY ==
[2023-08-31 17:20] VITALS: BP 162/93; PULSE 111; RESP 27; TEMP 37.7; O2SAT 92; BMI 25.9
--- NOTE | 2023-08-31 17:22 | ECG_ITS ---
[facility] Test Date: 2023-08-31 Pat Name: Kristi Marinelli Department: Room: Gender: Female Supervisor Print Line: : 1940 Requested By: Carson Laurent Order Number: [id number] Luh MD: Devan Escobedo M.D. Measurements Intervals [place] Rate: 102 P: 78 W[place]: 214 QRS: 31 QRSD: 90 T: 78 QT: 321 QTc: 418 Interpretive Statements SINUS TACHYCARDIA WITH FIRST DEGREE AV BLOCK SEPTAL MYOCARDIAL INFARCTION , OF INDETERMINATE AGE [40+ ms Q WAVE IN V1/V2] Compared to ECG 04/21/2023 09:22:01 Sinus rhythm no longer present Myocardial infarct finding still present Electronically Signed On 09-01-2023 11:25:51 PULP GRINDER by Devan Escobedo M.D. [email or web address]
--- NOTE | 2023-08-31 17:22 | XRR_ITS ---
PROCEDURE INFORMATION: Exam: XR Chest Exam date and time: 08/31/2023 5:38 PM Age: 83 years old Clinical indication: Shortness of breath; Prior surgery; Surgery date: 6+ months; Surgery type: Breast; Additional info: Dyspnea/cough TECHNIQUE: Imaging protocol: Radiologic exam of the chest. Views: 1 view. COMPARISON: CR XR chest 1V portable [id number] 04/21/2023 9:24 AM FINDINGS: Lungs: Unremarkable. No consolidation. Pleural spaces: Unremarkable. No pleural effusion. No pneumothorax. Heart/Mediastinum: Unremarkable. No cardiomegaly. Bones/joints: Unremarkable. XR/XR chest 1V portable [id number] IMPRESSION: No acute findings.
--- NOTE | 2023-08-31 17:37 | ED_ITS ---
Documented by User: Carson Nash DO 09/01/23 06:11 HPI - SOB/Dyspnea 2 General: Chief Complaint: Shortness of Breath/Dyspnea Stated Complaint: sob,choked Time Seen by Provider: 08/31/23 17:21 Source: patient and other (Caregiver) Mode of arrival: EMS History of Present Illness: HPI Narrative: 83-year-old female with a history of int ellectual disability and some mild Alzheimer's she lives in a retirement. She has a tendency to eat very quickly and in several occasions has choked on food. She has had some aspiration pneumonia according to the caregiver that is with her. Today she was eating some macaroni and cheese began choking and EMS was called on their arrival he reports she was cyanotic with sats in the 70s. Caregivers at the scene had not cleared her airway prior to EMSs arrival. They did apply oxygen she is not normally on oxygen is requiring 3 L to maintain sats in the low 90s at this time. She denies any other injury she has no history of any chronic respiratory illness or congestive heart failure MD elicited complaint: shortness of breath and cough Severity: mild Exacerbating factors: exertion Relieving factors: oxygen Associated symptoms: Deny abdominal pain, chest congestion, chest pain, cough, diaphoresis, dizziness, extremity pain, fever(s), hemoptysis, lightheadedness, myalgias, nausea, orthopnea, palpitations, paresthesias, polydipsia, polyuria, rash, sense of impending doom, syncope or vomiting Treatment prior to arrival: oxygen Related Data: Home oxygen amount: none Review of Systems 2 Const: Denies: fever(s) or diaphoresis Card: Denies: chest pain, palpitations, lightheadedness, syncope or orthopnea Resp: Reports: dyspnea and non-productive cough; Denies: hemoptysis or chest congestion GI: Denies: abdominal pain, nausea or vomiting Musc: Denies: neck pain, back pain or extremity pain Neuro: Denies: dizziness Endo: Denies: polyuria or polydipsia PFSH ED 2 PFSH: Medical History Coronary artery disease COPD (chronic obstructive pulmonary disease) with emphysema Mental disability Gastric reflux Vitamin D deficiency Cervical stenosis of spine History of breast cancer OCD (obsessive compulsive disorder) Depression Bipolar disorder History of TIA (transient ischemic attack) Diabetes Chest pain HTN (hypertension) Osteoporosis Surgical History Previous back surgery History of lumpectomy S/P hysterectomy Family History Other Cancer Stroke Social History Smoking and tobacco/nicotine status: never used tobacco/nicotine Second hand smoke exposure: No Alcohol intake: never Substance/Drug Use: never Adopted: No Caregiver/support person: Yes Lives independently: No Household members: caregiver Housing: House Marital status: Single Number of children: 0 service: No Current occupational status: disabled Current occupational exposures/hazards: No Pets and animals: No Do you think of yourself as: Straight/Heterosexual Current gender identity: Female Physical Exam 2 Const: GENERAL APPEARANCE: cooperative and comfortable O RIENTATION/CONSCIOUSNESS: Yes awake, Yes oriented to person, Yes oriented to place and Yes oriented to time HENMT: COMMON NORMALS: normocephalic, atraumatic and hearing grossly normal bilaterally HEAD & SCALP: normocephalic and atraumatic Resp: COMMON NORMALS: normal respiratory effort, No retractions and No use of accessory muscles AUSCULTATION: rhonchi and wheezes Cardio: COMMON NORMALS: regular rate, regular rhythm and No murmurs present (Cardio) RATE: regular rate RHYTHM: regular rhythm GI: COMMON NORMALS: Soft to palpation and No hepatosplenomegaly present A USCULTATION: Yes normoactive bowel sounds PALPATION: Yes Soft to palpation, No Tenderness to palpation present (GI), No Guarding due to palpation present (GI) and Yes No hepatosplenomegaly present Extremity: COMMON NORMALS: normal to inspection, capillary refill normal, no clubbing, cyanosis or edema, no calf tenderness and no pedal edema Neuro: SENSORIUM/ORIENTATION: Yes oriented to person, Yes oriented to place and Yes oriented to time Skin: COMMON NORMALS: no rashes or lesions noted GENERAL SKIN EXAM: no rashes or lesions noted Course 2 Vital Signs: Vital signs: Vital Signs Temperature 97.9 F 09/01/23 03:58 Pulse Rate 85 09/01/23 03:58 Respiratory Rate 19 H 09/01/23 03:58 Blood Pressure 104/68 09/01/23 03:58 Pulse Oximetry 96 09/01/23 03:58 Oxygen Delivery Me thod Nasal Cannula 09/01/23 03:58 Oxygen Flow Rate 5 09/01/23 03:58 MDM - SOB/Dyspnea Medical Decision Making Labs and images pending. Patient requiring 3 L by nasal cannula normally is on room air. She has a history of aspiration in the past. Care signed out to Dr. Ash at change of shift. See final notes for diagnosis and disposition. Patient presents here with shortness of breath likely has an aspiration pneumonia she is requiring 3 L of oxygen here did start antibiotics got blood cultures spoke to the hospitalist will admit. Lab Data 09/01/23 04:05 09/01/23 04:05 Labs/Radiology: Radiology Impressions Chest X-Ray 08/31/23 17:22 IMPRESSION: No acute findings. Head CT 08/31/23 20:03 IMPRESSION: No acute intracranial finding. ASSESSMENT: ASPECTS ([place] Stroke Program Early CT Score) is 10. Head/Neck CTA 08/31/23 20:03 IMPRESSION: No large vessel occlusion or intracranial aneurysm identified. 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 No hemodynamically significant stenosis or occlusion in the carotid or vertebral arteries on either side of the neck. REFERENCES: NASCET CRITERIA. The degree of stenosis in the cervical segment of the internal carotid artery is based on NASCET criteria. Normal is no stenosis. Mild is less than 50% stenosis. Moderate is 50-69% stenosis. Severe is 70% to 99% stenosis. Total occlusion is no detectable patent lumen. Laboratory Results WBC 9.77 10^3/uL (3.29-11.43) 08/31/23 17:45 RBC 3.83 10^6/uL (3.85-5.65) L 08/31/23 17:45 Hgb 11.80 g/dL (11.27-16.99) 08/31/23 17:45 Hct 37.0 % (36-47) 08/31/23 17:45 MCV 96.6 fl (85-98) 08/31/23 17:45 MCH 30.8 pg (27-33) 08/31/23 17:45 MCHC 31.9 g/dL (30-55) 08/31/23 17:45 RDW 14.6 % (12.1-15.1) 08/31/23 17:45 Plt Count 246 10^3/cmm (157-399) 08/31/23 17:45 MPV 10.5 fL (7.4-10.4) H 08/31/23 17:45 Neut % (Auto) 68.9 % 08/31/23 17:45 Lymph % (Auto) 17.3 % 08/31/23 17:45 [place] % (Auto) 9.6 % 08/31/23 17:45 Eos % (Auto) 2.5 % 08/31/23 17:45 Baso % (Auto) 0.7 % 08/31/23 17:45 Neut # (Auto) 6.73 10^3/uL (1.8-7.7) 08/31/23 17:45 Lymph # (Auto) 1.7 10^3/uL (0.8-4.8) 08/31/23 17:45 [place] # (Auto) 0.9 10^3/uL (0.2-0.9) 08/31/23 17:45 Eos # (Auto) 0.2 10^3/uL (0.0-0.8) 08/31/23 17:45 Baso # (Auto) 0.1 10^3/uL (0.0-0.1) 08/31/23 17:45 Nucleated RBC % (auto) 0 % 08/31/23 17:45 Nucleated RBCs # 0.0 /100WBC 08/31/23 17:45 Sodium 139 mmol/L (136-145) 08/31/23 17:45 Potassium 3.5 mmol/L (3.5-5.1) 08/31/23 17:45 Chloride 105 mmol/L (98-107) 08/31/23 17:45 Carbon Dioxide 22 mmol/L (22-29) 08/31/23 17:45 Anion Gap 15.5 (5-19) 08/31/23 17:45 BUN 17 mg/dL (8-23) 08/31/23 17:45 Creatinine 0.7 mg/dL (0.5-0.9) 08/31/23 17:45 GFR Calculation Not Reportable 08/31/23 17:45 Glucose 227 mg/dL (65-115) H 08/31/23 17:45 Calculated Osmolality 297 mOsm/kg (285-295) H 08/31/23 17:45 Calcium 9.6 mg/dL (8.5-10.5) 08/31/23 17:45 Total Bilirubin 0.2 mg/dL (0.15-1.2) 08/31/23 17:45 AST 19 U/L (0-32) 08/31/23 17:45 ALT 13 U/L (0-33) 08/31/23 17:45 Alkaline Phosphatase 75 U/L (35-105) 08/31/23 17:45 NT-Pro-B Natriuret Pep 99 pg/mL (0-450) 08/31/23 17:45 Total Protein 6.8 g/dL (6.6-8.7) 08/31/23 17:45 Albumin 3.8 g/dL (3.5-5.2) 08/31/23 17:45 Globulin 3.0 g/dL (1.3-4.6) 08/31/23 17:45 Procalcitonin 0.06 ng/mL (0-0.5) 08/31/23 17:45 Influenza Type A Ag negative (Negative) 08/31/23 18:43 Influenza Type B Ag negative (Negative) 08/31/23 18:43 SARS-CoV-2 Ag (Rapid) negative (Negative) 08/31/23 18:43 Discharge Plan Discharge Patient Disposition: Admitted As Inpatient Admit Provider: Kalyn Lamas Clinical Impression: Acute respiratory failure with hypoxia, Aspiration pneumonia Condition: Stable Coding Level of Care Code ED [employer]er for Chg Fwd Documented by User: Mary Ash MD 08/31/23 19:35 HPI - SOB/Dyspnea 2 General: Chief Complaint: Shortness of Breath/Dyspnea Stated Complaint: sob,choked Time Seen by Provider: 08/31/23 17:21 PFSH ED 2 PFSH: Medical History Coronary artery disease COPD (chronic obstructive pulmonary disease) with emphysema Mental disability Gastric reflux Vitamin D deficiency Cervical stenosis of spine History of breast cancer OCD (obsessive compulsive disorder) Depression Bipolar disorder History of TIA (transient ischemic attack) Diabetes Chest pain HTN (hypertension) Osteoporosis Surgical History Previous back surgery History of lumpectomy S/P hysterectomy Family History Other Cancer Stroke Social History Smoking and tobacco/nicotine status: never used tobacco/nicotine Second hand smoke exposure: No Alcohol intake: never Substance/Drug Use: never Adopted: No Caregiver/support person: Yes Lives independently: No Household members: caregiver Housing: House Marital status: Single Number of children: 0 service: No Current occupational status: disabled Current occupational exposures/hazards: No Pets and animals: No Do you think of yourself as: Straight/Heterosexual Current gender identity: Female Course 2 Vital Signs: Vital signs: Vital Signs Temperature 97.9 F 09/01/23 03:58 Pulse Rate 85 09/01/23 03:58 Respiratory Rate 19 H 09/01/23 03:58 Blood Pressure 104/68 09/01/23 03:58 Pulse Oximetry 96 09/01/23 03:58 Oxygen Delivery Me thod Nasal Cannula 09/01/23 03:58 Oxygen Flow Rate 5 09/01/23 03:58 MDM - SOB/Dyspnea Medical Decision Making Patient presents here with shortness of breath likely has an aspiration pneumonia she is requiring 3 L of oxygen here did start antibiotics got blood cultures spoke to the hospitalist will admit. Medical Records I reviewed the patient's medical records. Lab Data I reviewed the patient's lab results. 09/01/23 04:05 09/01/23 04:05 Labs/Radiology: Radiology Impressions Chest X-Ray 08/31/23 17:22 IMPRESSION: No acute findings. Head CT 08/31/23 20:03 IMPRESSION: No acute intracranial finding. ASSESSMENT: ASPECTS ([place] Stroke Program Early CT Score) is 10. Head/Neck CTA 08/31/23 20:03 IMPRESSION: No large vessel occlusion or intracranial aneurysm identified. 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 No hemodynamically significant stenosis or occlusion in the carotid or vertebral arteries on either side of the neck. REFERENCES: NASCET CRITERIA. The degree of stenosis in the cervical segment of the internal carotid artery is based on NASCET criteria. Normal is no stenosis. Mild is less than 50% stenosis. Moderate is 50-69% stenosis. Severe is 70% to 99% stenosis. Total occlusion is no detectable patent lumen. Laboratory Results WBC 9.77 10^3/uL (3.29-11.43) 08/31/23 17:45 RBC 3.83 10^6/uL (3.85-5.65) L 08/31/23 17:45 Hgb 11.80 g/dL (11.27-16.99) 08/31/23 17:45 Hct 37.0 % (36-47) 08/31/23 17:45 MCV 96.6 fl (85-98) 08/31/23 17:45 MCH 30.8 pg (27-33) 08/31/23 17:45 MCHC 31.9 g/dL (30-55) 08/31/23 17:45 RDW 14.6 % (12.1-15.1) 08/31/23 17:45 Plt Count 246 10^3/cmm (157-399) 08/31/23 17:45 MPV 10.5 fL (7.4-10.4) H 08/31/23 17:45 Neut % (Auto) 68.9 % 08/31/23 17:45 Lymph % (Auto) 17.3 % 08/31/23 17:45 [place] % (Auto) 9.6 % 08/31/23 17:45 Eos % (Auto) 2.5 % 08/31/23 17:45 Baso % (Auto) 0.7 % 08/31/23 17:45 Neut # (Auto) 6.73 10^3/uL (1.8-7.7) 08/31/23 17:45 Lymph # (Auto) 1.7 10^3/uL (0.8-4.8) 08/31/23 17:45 [place] # (Auto) 0.9 10^3/uL (0.2-0.9) 08/31/23 17:45 Eos # (Auto) 0.2 10^3/uL (0.0-0.8) 08/31/23 17:45 Baso # (Auto) 0.1 10^3/uL (0.0-0.1) 08/31/23 17:45 Nucleated RBC % (auto) 0 % 08/31/23 17:45 Nucleated RBCs # 0.0 /100WBC 08/31/23 17:45 Sodium 139 mmol/L (136-145) 08/31/23 17:45 Potassium 3.5 mmol/L (3.5-5.1) 08/31/23 17:45 Chloride 105 mmol/L (98-107) 08/31/23 17:45 Carbon Dioxide 22 mmol/L (22-29) 08/31/23 17:45 Anion Gap 15.5 (5-19) 08/31/23 17:45 BUN 17 mg/dL (8-23) 08/31/23 17:45 Creatinine 0.7 mg/dL (0.5-0.9) 08/31/23 17:45 GFR Calculation Not Reportable 08/31/23 17:45 Glucose 227 mg/dL (65-115) H 08/31/23 17:45 Calculated Osmolality 297 mOsm/kg (285-295) H 08/31/23 17:45 Calcium 9.6 mg/dL (8.5-10.5) 08/31/23 17:45 Total Bilirubin 0.2 mg/dL (0.15-1.2) 08/31/23 17:45 AST 19 U/L (0-32) 08/31/23 17:45 ALT 13 U/L (0-33) 08/31/23 17:45 Alkaline Phosphatase 75 U/L (35-105) 08/31/23 17:45 NT-Pro-B Natriuret Pep 99 pg/mL (0-450) 08/31/23 17:45 Total Protein 6.8 g/dL (6.6-8.7) 08/31/23 17:45 Albumin 3.8 g/dL (3.5-5.2) 08/31/23 17:45 Globulin 3.0 g/dL (1.3-4.6) 08/31/23 17:45 Procalcitonin 0.06 ng/mL (0-0.5) 08/31/23 17:45 Influenza Type A Ag negative (Negative) 08/31/23 18:43 Influenza Type B Ag negative (Negative) 08/31/23 18:43 SARS-CoV-2 Ag (Rapid) negative (Negative) 08/31/23 18:43 All radiology interpretation(s) finalized by discharge Discharge Plan Discharge Patient Disposition: Admitted As Inpatient Admit Provider: Kalyn Lamas Clinical Impression: Acute respiratory failure with hypoxia, Aspiration pneumonia Condition: Stable Coding Level of Care Code ED [employer]er for Miladis Novak
[2023-08-31 17:49] LABS: Basophils # 0.1 10^3/uL (0.0-0.1); Basophils % 0.7 %; Eosinophils # 0.2 10^3/uL (0.0-0.8); Eosinophils % 2.5 %; Lymphocytes # 1.7 10^3/uL (0.8-4.8); Lymphocytes % 17.3 %; Mean Corpuscular HGB Conc 31.9 g/dL (30-55); Mean Corpuscular Hemoglobin 30.8 pg (27-33); Mean Corpuscular Volume 96.6 fl (85-98); Mean Platelet Volume 10.5 fL (7.4-10.4); Monocytes # 0.9 10^3/uL (0.2-0.9); Monocytes % 9.6 %; Neutrophils # 6.73 10^3/uL (1.8-7.7); Neutrophils % 68.9 %; Nucleated Red Blood Cells % 0 %; Platelet Count 246 10^3/cmm (157-399); Red Blood Count 3.83 10^6/uL (3.85-5.65); Red Cell Distribution Width 14.6 % (12.1-15.1); White Blood Count 9.77 10^3/uL (3.29-11.43)
[2023-08-31 18:08] LABS: Alanine Aminotransferase 13 U/L (0-33); Albumin Level 3.8 g/dL (3.5-5.2); Alkaline Phosphatase 75 U/L (35-105); Anion Gap 15.5 (5-19); Aspartate Amino Transferase 19 U/L (0-32); Blood Urea Nitrogen 17 mg/dL (8-23); Calcium 9.6 mg/dL (8.5-10.5); Carbon Dioxide 22 mmol/L (22-29); Chloride 105 mmol/L (98-107); Glucose 227 mg/dL (65-115); Osmolality Calculated 297 mOsm/kg (285-295); Potassium 3.5 mmol/L (3.5-5.1); Sodium 139 mmol/L (136-145); Total Bilirubin 0.2 mg/dL (0.15-1.2); Total Protein 6.8 g/dL (6.6-8.7)
[2023-08-31] MEDS: acetaminophen 500 mg Tablet 1000 MG PO (18:31)
[2023-08-31] MEDS: piperacillin-tazobactam 3.375 GM in sodium chloride 0.9% (plus) 50 ML IV (18:32)
[2023-08-31 18:39] VITALS: BP 173/105; PULSE 98; RESP 22; O2SAT 95
[2023-08-31 19:06] LABS: Influenza A by IFA negative (Negative); Influenza B by IFA negative (Negative)
[2023-08-31 19:07] LABS: SARS Covid-2 Antigen negative (Negative)
[2023-08-31] MEDS: vancomycin 1,000 MG in sodium chloride 0.9% 250 ML 250 MG IV (19:16)
--- NOTE | 2023-08-31 19:34 | P.HP_ITS ---
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 As per the caregiver who is at the bedside around 4:35 PM she had an episode of aspiration while she was having mac & cheese. She started coughing, she became hypoxic at that time EMS was called, desaturating at 70s, she was put on 3 L, in the ER she was requiring 4 to 5 L of oxygen via nasal cannula, she was afebrile, low-grade temp was noted 99.9, chest x-ray unremarkable, during my interview with the caregiver caregiver stated that Ms. Burden never had left eye deviation, aspiration event before, and word finding difficulty, I have requested stroke workup in the ER spoke with Dr. Ash. Will request CT head and CTA head and neck At the time of evaluation patient is able to follow commands, she is moving her extremities, she is experiencing word finding difficulty I have noted squint of eyes, left eye deviation without pupillary asymmetry Patient seems to have expressive dysarthria Review of Systems 2 Const: Denies: fever(s) Eyes: Denies: change in vision ENMT: Denies: throat pain Card: Denies: chest pain Resp: Reports: dyspnea GI: Denies: abdominal pain : Denies: flank pain Musc: Denies: neck pain Skin/Breast: Denies: rash Medications/Allergies Home Medications Medication Instructions Recorded Confirmed Last Taken Type loperamide 2 mg capsule 4 mg PO DIRECTED PRN Diarrhea 09/21/19 07/08/23 Unknown History nitroglycerin 0.4 mg sublingual 0.4 mg sublingual Q5M PRN Chest 10/10/19 07/08/23 Unknown History tablet Pain budesonide 0.5 mg/2 mL suspension 0.5 mg (2 mL) inhalation BID #120 04/05/20 07/08/23 Unknown Rx for nebulization (Pulmicort) mL formoterol fumarate 20 mcg/2 mL 2 ml inhalation Q12H #120 mL 04/05/20 07/08/23 Unknown Rx solution for nebulization (Perforomist) nebulizers #1 ea 04/05/20 07/08/23 Unknown Rx ondansetron 8 mg disintegrating 8 mg PO Q8H PRN Nausea #10 tabs 05/18/20 07/08/23 Unknown Rx tablet blood-glucose meter (Blood Glucose #1 ea 10/25/20 07/08/23 Unknown Rx Monitoring kit) lancets 33 gauge (BD Ultra Fine #100 ea 10/25/20 07/08/23 Unknown Rx Lancets) blood sugar diagnostic (Blood #100 ea 01/08/21 07/08/23 Unknown Rx Glucose Test strips) albuterol sulfate 90 mcg/actuation 2 puff inhalation Q6H PRN 01/01/22 07/08/23 Unknown History aerosol inhaler (Ventolin HFA) memantine 10 mg tablet (Namenda) 10 mg PO BID #60 tabs 11/12/22 07/08/23 Unknown Rx olanzapine 5 mg tablet 5 mg PO DAILY #30 tabs 11/12/22 07/08/23 Unknown Rx promethazine-DM 6.25 mg-15 mg/5 mL 5 ml PO Q6H PRN Cough #120 mL 02/17/23 07/08/23 Unknown Rx oral syrup galantamine 4 mg tablet 4 mg PO BID 90 days #180 tabs 02/24/23 07/08/23 Unknown Rx acetaminophen 650 mg 650 mg PO Q12H #60 tabs 05/06/23 07/08/23 Unknown Rx tablet,extended release (Tylenol Arthritis Pain) ergocalciferol (vitamin D2) 1,250 50,000 unit PO .monthly 28 days #1 05/06/23 07/08/23 Unknown Rx mcg (50,000 unit) capsule (Vitamin cap D2) fenofibrate nanocrystallized 48 mg 48 mg PO DAILY #30 tabs 05/06/23 07/08/23 Unknown Rx tablet (Tricor) isosorbide mononitrate 30 mg 15 mg (1/2 x 30 mg) PO BID #30 tabs 05/06/23 07/08/23 Unknown Rx tablet,extended release 24 hr lisinopril 5 mg tablet 5 mg PO QDAY #30 tabs 05/06/23 07/08/23 Unknown Rx magnesium oxide 400 mg PO DAILY #30 tabs 05/06/23 07/08/23 Unknown Rx multivit,tx with iron 27 1 tab PO DAILY #30 tabs 05/06/23 07/08/23 Unknown Rx bg-mbmcazy-elbqq acid 0.4 mg-minerals tablet (Thera-M) omega-3 fatty acids 1,000 mg 1,000 mg PO BID #60 caps 05/06/23 07/08/23 Unknown Rx capsule omeprazole 20 mg capsule,delayed 20 mg PO DAILY #30 ea 05/06/23 07/08/23 Unknown Rx release dexamethasone 6 mg tablet 6 mg PO DAILY #30 tabs 07/08/23 07/08/23 Unknown Rx melatonin 10 mg capsule 10 mg PO .7pm #30 caps 07/23/23 Unknown Rx paroxetine HCl 20 mg tablet 20 mg PO QDAY 90 days #90 tabs 08/19/23 Unknown Rx Allergies Allergy/AdvReac Type Severity Reaction Status Date / Time Sulfa (Sulfonamide Allergy Unknown Uknown Verified 07/08/23 14:52 Antibiotics) PFSH Acute 2 PFSH: Medical History Coronary artery disease COPD (chronic obstructive pulmonary disease) with emphysema Mental disability Gastric reflux Vitamin D deficiency Cervical stenosis of spine History of breast cancer OCD (obsessive compulsive disorder) Depression Bipolar disorder History of TIA (transient ischemic attack) Diabetes Chest pain HTN (hypertension) Osteoporosis Surgical History Previous back surgery History of lumpectomy S/P hysterectomy Family History Other Cancer Stroke Social History Smoking and tobacco/nicotine status: never used tobacco/nicotine Second hand smoke exposure: No Alcohol intake: never Substance/Drug Use: never Adopted: No Caregiver/support person: Yes Lives independently: No Household members: caregiver Housing: House Marital status: Single Number of children: 0 service: No Current occupational status: disabled Current occupational exposures/hazards: No Pets and animals: No Do you think of yourself as: Straight/Heterosexual Current gender identity: Female Vitals/I&O/Wt Last Vital Signs Temp 99.9 F H 08/31/23 17:20 Pulse 98 08/31/23 18:39 Resp 22 H 08/31/23 18:39 BP 173/105 08/31/23 18:39 Pulse Ox 95 08/31/23 18:39 O2 Del Method Nasal Cannula 08/31/23 18:39 O2 Flow Rate 3 08/31/23 18:39 08/31/23 08/31/23 08/31/23 06:59 14:59 22:59 Intake Total 50 / 50 Balance 50 / 50 Weight last 48 hrs Weight 67.585 kg Physical Exam 2 Narrative: Patient is awake and alert Able to move her extremities Word finding difficulty Expressive dysarthria Pupils are symmetrical Hemodynamically stable Currently on 4 L nasal cannula Bilateral breath sounds with crackles on wheezing Abdomen soft Able to follow commands No signs of meningitis Caregiver at the bedside S1, S2 Abdomen soft Data 08/31/23 17:45 08/31/23 17:45 A&P Assessment and plan (1) Diabetes: Qualifiers: Diabetes mellitus type: type 2 Diabetes mellitus usp insulin use: without usp use Diabetes mellitus complication status: without complication Qualified Code(s): E11.9 - Type 2 diabetes mellitus without complications (2) Alzheimer disease: (3) COPD (chronic obstructive pulmonary disease) with emphysema: Qualifiers: Emphysema type: unspecified Qualified Code(s): J43.9 - Emphysema, unspecified (4) Acute respiratory failure with hypoxia: (5) Aspiration pneumonia: (6) Word finding difficulty: (7) HTN (hypertension): Qualifiers: Hypertension type: essential hypertension Qualified Code(s): I10 - Essential (primary) hypertension (8) Living in assisted living: (9) COPD exacerbation: Plan Expressive dysarthria Aspiration pneumonia Aspiration event Acute hypoxia Word-finding difficulty Acute COPD exacerbation Requested CT head and CTA head and neck and stroke workup My concern is related to CVA event causing aspiration Will request modified barium swallow and speech therapy along with PT OT Patient has low-grade fever Will put Zosyn for aspiration pneumonia Or acute hypoxia will give her antibiotics, IV steroids for active wheezing check BNP, clinically she is euvolemic At baseline she has dementia but as per the caregiver she could carry a decent conversation, she was saying at the assisted living, she would walk on her own however she is on a small bite-size modified diet, She is full code NIH score 3 Medical DPOA public servicenow administrator She is from assisted living DVT prophylaxis Lovenox I will keep her on IV fluids and steroids Acute hypoxia currently requiring 4 L of oxygen, patient does not use any oxygen at home, Attestations 2 Medical Necessity Statement*: Patient will need stroke workup and management of aspiration pneumonia, anticipating more than 2 midnights Diagnoses Type 2 diabetes mellitus without complication, without long-term current use of insulin E11.9 Diabetes mellitus type: type 2 Diabetes mellitus middle or intermediate school principal insulin use: without usp use Diabetes mellitus complication status: without complication Alzheimer disease G30.9; F02.80 Pulmonary emphysema, unspecified emphysema type J43.9 Emphysema type: unspecified Acute respiratory failure with hypoxia J96.01 Aspiration pneumonia J69.0 Word finding difficulty R47.89 Essential hypertension I10 Hypertension type: essential hypertension Living in assisted living Z59.3 COPD exacerbation J44.1
[2023-08-31 19:47] VITALS: BP 116/72; PULSE 97; RESP 23; O2SAT 96
--- NOTE | 2023-08-31 20:03 | CTR_ITS ---
PROCEDURE INFORMATION: Exam: CTA Head With Contrast, Arteriography Exam date and time: 08/31/2023 8:53 PM Age: 83 years old Clinical indication: Stroke-like symptoms; Altered mental status/memory loss; Additional info: Acute confusion. Inital arrival to er for possible aspiration pneumonia as PT choked while eating dinner at skilled nursing and was hypoxic in the 70 percent range for unknown amount of time. TECHNIQUE: Imaging protocol: Computed tomographic angiography of the head with contrast. Exam focused on the arteries. 3D rendering (Not supervised by radiologist): MIP and/or 3D reconstructed images were created by the technologist. Radiation optimization: All CT scans at this facility use at least one of these dose optimization techniques: automated exposure control; mA and/or kV adjustment per patient size (includes targeted exams where dose is matched to clinical indication); or iterative reconstruction. Contrast material: OMNI 350; Contrast volume: 100 ml; Contrast route: INTRAVENOUS (IV); REPORTING DATA: Count of CT and Cardiac NM exams in prior 12 months: This patient has received [address] and 0 known cardiac nuclear medicine studies in the 12 months prior to the current study. COMPARISON: CT head wo con* [id number] 08/31/2023 8:49 PM RADIATION DOSE METRICS: Total DLP (mGy-cm): 335.7 FINDINGS: ANTERIOR CIRCULATION: Right internal carotid artery: There is some mild atherosclerotic calcification in the right cavernous carotid artery without significant stenosis. Right middle cerebral artery: No occlusion or significant stenosis. No aneurysm. Right anterior cerebral artery: No occlusion or significant stenosis. No aneurysm. Left internal carotid artery: There is mild atherosclerotic calcification in the left cavernous carotid artery without significant stenosis. Left middle cerebral artery: No occlusion or significant stenosis. No aneurysm. Left anterior cerebral artery: No occlusion or significant stenosis. No aneurysm. POSTERIOR CIRCULATION: Right vertebral artery: Right vertebral artery There is some atherosclerotic calcification and mild stenosis in the mid right V4 vertebral artery segment. Left vertebral artery: No occlusion or significant stenosis. No aneurysm. Basilar artery: No occlusion or significant stenosis. No aneurysm. Right posterior cerebral artery: No occlusion or significant stenosis. No aneurysm. Left posterior cerebral artery: No occlusion or significant stenosis. No aneurysm. Brain: No definite mass, mass effect, or midline shift. Cerebral ventricles: No ventriculomegaly. Bones/joints: Unremarkable. No acute fracture. Soft tissues: Unremarkable. PROCEDURE INFORMATION: Exam: CTA Neck With Contrast Exam date and time: 08/31/2023 8:53 PM Age: 83 years old Clinical indication: Stroke-like symptoms; Altered mental status/memory loss; Additional info: Acute confusion. Inital arrival to er for possible aspiration pneumonia as PT choked while eating dinner at skilled nursing and was hypoxic in the 70 percent range for unknown amount of time. TECHNIQUE: Imaging protocol: Computed tomographic angiography of the neck with contrast. Exam focused on the cervical segments of the vasculature. 3D rendering (Not supervised by radiologist): MIP and/or 3D reconstructed images were created by the technologist. Radiation optimization: All CT scans at this facility use at least one of these dose optimization techniques: automated exposure control; mA and/or kV adjustment per patient size (includes targeted exams where dose is matched to clinical indication); or iterative reconstruction. Contrast material: OMNI 350; Contrast volume: 100 ml; Contrast route: INTRAVENOUS (IV); REPORTING DATA: Count of CT and Cardiac NM exams in prior 12 months: This patient has received [address] and 0 known cardiac nuclear medicine studies in the 12 months prior to the current study. COMPARISON: CT head wo con* [id number] 08/31/2023 8:49 PM RADIATION DOSE METRICS: Total DLP (mGy-cm): 335.7 FINDINGS: Right common carotid artery: No stenosis. No dissection or occlusion. Right internal carotid artery: There is a 14 mm long segment of calcified atherosclerotic plaque in the proximal right internal carotid artery causing mild stenosis of less than 20% as measured according to the NASCET criteria. Right external carotid artery: No occlusion or stenosis of the origin. Left common carotid artery: No stenosis. No dissection or occlusion. Left internal carotid artery: No stenosis of the extracranial segment. No dissection or occlusion. Left external carotid artery: No occlusion or stenosis of the origin. Right vertebral artery: No stenosis. No dissection or occlusion. Left vertebral artery: No stenosis. No dissection or occlusion. Lymph nodes: There is a mildly enlarged right paratracheal lymph node measuring 9 x 16 mm. Soft tissues: Normal. No significant soft tissue swelling. Bones/joints: There are degenerative changes throughout the cervical spine. No acute fracture is identified CT/CT angio headneck* [id number] IMPRESSION: No large vessel occlusion or intracranial aneurysm identified. 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 No hemodynamically significant stenosis or occlusion in the carotid or vertebral arteries on either side of the neck. REFERENCES: NASCET CRITERIA. The degree of stenosis in the cervical segment of the internal carotid artery is based on NASCET criteria. Normal is no stenosis. Mild is less than 50% stenosis. Moderate is 50-69% stenosis. Severe is 70% to 99% stenosis. Total occlusion is no detectable patent lumen.
--- NOTE | 2023-08-31 20:03 | CTR_ITS ---
PROCEDURE INFORMATION: Exam: CT Head Without Contrast Exam date and time: 08/31/2023 8:49 PM Age: 83 years old Clinical indication: Stroke-like symptoms; Altered mental status/memory loss; Additional info: Acute confusion. Inital arrival to er for possible aspiration pneumonia as PT choked while eating dinner at residential and was hypoxic in the 70 percent range for unknown amount of time. TECHNIQUE: Imaging protocol: Computed tomography of the head without contrast. Radiation optimization: All CT scans at this facility use at least one of these dose optimization techniques: automated exposure control; mA and/or kV adjustment per patient size (includes targeted exams where dose is matched to clinical indication); or iterative reconstruction. Other technique: STROKE PROTOCOL was implemented. REPORTING DATA: Count of CT and Cardiac NM exams in prior 12 months: This patient has received [address] and 0 known cardiac nuclear medicine studies in the 12 months prior to the current study. COMPARISON: CT head wo con* [id number] 06/18/2017 2:32 PM RADIATION DOSE METRICS: Total DLP (mGy-cm): 1553.08 FINDINGS: Brain: There is moderate cortical atrophy. Low-density changes in the white matter are consistent with nonspecific small vessel chronic ischemic change. There is no intracranial mass, hemorrhage or edema. Cerebral ventricles: No ventriculomegaly. Paranasal sinuses: Visualized sinuses are unremarkable. No fluid levels. Mastoid air cells: There is opacification of some of the mastoid air cells on the left in keeping with some mastoiditis. Bones/joints: Permeative lytic area in the right calvarium stable compared with 06/18/2017. Old right nasal bone fracture not significantly changed. Soft tissues: Unremarkable. CT/CT head wo con* [id number] IMPRESSION: No acute intracranial finding. ASSESSMENT: ASPECTS ([place] Stroke Program Early CT Score) is 10.
[2023-08-31 20:33] LABS: Procalcitonin 0.06 ng/mL (0-0.5)
[2023-08-31] MEDS: iohexol 350 mg/mL 500 mL Btl (per mL) IV (20:57)
[2023-08-31 22:03] LABS: NT Pro B Type Natriuretic Pept 99 pg/mL (0-450)
[2023-08-31 22:30] VITALS: BP 127/74; PULSE 97; RESP 20; TEMP 36.4; O2SAT 91
[2023-08-31 22:41] LABS: D Dimer 2.42 ug/mLFEU (0-0.59)
[2023-08-31 22:45] VITALS: BMI 25.9
[2023-08-31 23:57] VITALS: BP 118/71; PULSE 95; RESP 20; TEMP 36.4; O2SAT 97
[2023-09-01] VITALS (10 sets, daily range): BP systolic 104–131; BP diastolic 64–80; PULSE 68–85; RESP 15–20; TEMP 36.4–37; O2SAT 93–98; BMI 25.9
[2023-09-01] MEDS: lisinopril 5 mg Tablet 10 MG PO ×2 (00:04→22:17)
[2023-09-01] MEDS: enoxaparin 40 mg/0.4 mL Syringe SUBCUT ×2 (00:04→22:17)
[2023-09-01] MEDS: sodium chloride 0.9% 1,000 ML 75 ML IV ×2 (00:05→12:37)
[2023-09-01] MEDS: methylPREDNISolone sod succ 40 mg/mL INJ 30 MG IVP (00:19)
[2023-09-01] MEDS: piperacillin-tazobactam 3.375 GM in sodium chloride 0.9% (plus) 50 ML IV ×3 (03:10→20:21)
[2023-09-01 05:08] LABS: Basophils # 0.1 10^3/uL (0.0-0.1); Basophils % 0.3 %; Hematocrit 39.4 % (36-47); Lymphocytes # 0.8 10^3/uL (0.8-4.8); Lymphocytes % 5.6 %; Mean Corpuscular HGB Conc 31.2 g/dL (30-55); Mean Corpuscular Hemoglobin 30.4 pg (27-33); Mean Corpuscular Volume 97.3 fl (85-98); Mean Platelet Volume 11.3 fL (7.4-10.4); Monocytes # 0.9 10^3/uL (0.2-0.9); Monocytes % 5.9 %; Neutrophils # 12.85 10^3/uL (1.8-7.7); Neutrophils % 87.5 %; Nucleated Red Blood Cells % 0 %; Platelet Count 255 10^3/cmm (157-399); Red Blood Count 4.05 10^6/uL (3.85-5.65); Red Cell Distribution Width 14.7 % (12.1-15.1); White Blood Count 14.69 10^3/uL (3.29-11.43)
--- NOTE | 2023-09-01 05:28 | PC.NURSE ---
pt has voided 3 times since arrival to this floor, 300 ml in total with 2 incontinent episode large amount
[2023-09-01 05:37] LABS: Anion Gap 15.5 (5-19); Blood Urea Nitrogen 17 mg/dL (8-23); C Reactive Protein 26.5 mg/L (0.0-4.9); Calcium 9.8 mg/dL (8.5-10.5); Carbon Dioxide 24 mmol/L (22-29); Chloride 105 mmol/L (98-107); Glucose 152 mg/dL (65-115); Magnesium 1.7 mg/dL (1.7-2.3); Osmolality Calculated 295 mOsm/kg (285-295); Potassium 4.5 mmol/L (3.5-5.1); Sodium 140 mmol/L (136-145)
--- NOTE | 2023-09-01 07:00 | FL_ITS ---
WS: [id number] Modified barium swallow, 09/01/2023 Clinical Data: Oropharyngeal dysphagia Comparison: None. Fluoroscopy time: 2min [id number] # of spot films: Findings: The patient had poor oral function. There was premature spillage. There is residue in the vallecula a nd piriformis which did clear with swallowing. There is no aspiration or penetration. There was poor pharyngeal peristalsis. However the patient was able to propel the barium tablet rapidly from the ora l cavity into the stomach. Impression: 1. Poor oral function with premature spillage. 2. The vallecula and piriformis residue which did clear with swallowing. 3. Negative for aspiration or penetration.
--- OUTSIDE RECORDS SUMMARY | 2023-09-01 07:10 | XMS_ITS | Continuity of Care Document ---
Author Name Unknown Organization [facility] Address [address] [place] [address] Encounter [email or web address] [id number] Date(s): 06/23/23 - 06/23/23 [facility] [address] [place] [address]- Discharge Disposition: Home or Self Care Attending Physician: IONA DAVIDSON MD Assessment and Plan Diagnostic Tests Pending * Celiac Disease Comprehensive Panel (CQ) 06/23/23 Results Laboratory List Name Date .Differential Automated 06/23/23 Amylase Blood 06/23/23 C Reactive Protein 06/23/23 Complete Blood Count w/Diff Auto 3 Comprehensive Metabolic Profile 06/23/23 Erythrocyte Sedimentation Rate Manual Lipase 06/23/23 Prothrombin Time w/INR 06/23/23 TSH 06/23/23 Most recent to oldest [Reference Range]: 1 eGFR [>=90 mL/min/1.73m??] 80 mL/min/1.7 3m?? 1 *LOW* (06/23/23 1:36 PM) nRBC% Auto 0 % *NA* (06/23/23 1:36 PM) nRBC# Auto 0 /100 WBC *NA* (06/23/23 1:36 PM) RBC [3.90-5.19] 4.36 (06/23/23 1:36 PM) PT [9.6-12.4 second(s)] 10.3 second(s) (06/23/23 1:36 PM) INR 0.9 2 *NA* (06/23/23 1:36 PM) BUN [8-17 mg/dL] 17 mg/dL (06/23/23 1:36 PM) Albumin [3.6-4.9 g/dL] 3.3 g/dL *LOW* (06/23/23 1:36 PM) Alkaline Phosphatase [51-135 U/L] 72 U/L (06/23/23 1:36 PM) ALT [31-64 U/L] 22 U/L *LOW* (06/23/23 1:36 PM) Anion Gap [3.1-10.9 mmol/L] 5.0 mmol/L (06/23/23 1:36 PM) AST [16-36 U/L] 18 U/L (06/23/23 1:36 PM) Basophils# Auto [1.0-1.0] 0.1 *LOW* (06/23/23 1:36 PM) Basophils% Auto [1.0-4.0 %] 0.8 % *LOW* (06/23/23 1:36 PM) Bili Total [0.1-0.9 mg/dL] 0.3 mg/dL (06/23/23 1:36 PM) BUN/Crea Ratio [6.01-19.99] 24.29 *HI* (06/23/23 1:36 PM) Calcium [8.6-10.0 mg/dL] 9.8 mg/dL (06/23/23 1:36 PM) Creatinine [0.6-1.3 mg/dL] 0.7 mg/dL (06/23/23 1:36 PM) Eos# Auto [2.0-2.0] 0.2 *LOW* (06/23/23 1:36 PM) Eosinophils% Auto [1.0-2.0 %] 2.4 % *HI* (06/23/23 1:36 PM) Globulin 4 *NA* (06/23/23 1:36 PM) HCT [38.1-46.9 %] 39.6 % (06/23/23 1:36 PM) Hgb [11.8-15.6 g/dL] 12.9 g/dL (06/23/23 1:36 PM) Potassium [3.6-5.2 mEq/L] 3.7 mEq/L (06/23/23 1:36 PM) Lymphocytes# Auto [2.0-4.0] 1.5 *LOW* (06/23/23 1:36 PM) Lymphocytes% Auto [22.0-50.0 %] 19.0 % *LOW* (06/23/23 1:36 PM) MCH [27.1-32.9 pg] 29.7 pg (06/23/23 1:36 PM) MCHC [32.1-35.9] 32.7 (06/23/23 1:36 PM) MCV [81.1-97.9 fL] 90.8 fL (06/23/23 1:36 PM) Monocytes# Auto [1.0-1.0] 0.8 *LOW* (06/23/23 1:36 PM) Monocytes% Auto [3.0-8.0 %] 10.7 % *HI* (06/23/23 1:36 PM) Neutrophils# Auto [3.0-7.0] 5.2 (06/23/23 1:36 PM) Neutrophils% Auto [38.0-69.0 %] 67.1 % (06/23/23 1:36 PM) Plt Cnt [151-449 K/uL] 185 K/uL (06/23/23 1:36 PM) Prot Total [6.5-8.2 g/dL] 7.2 g/dL (06/23/23 1:36 PM) RDW [11.6-14.4 %] 15.9 % *HI* (06/23/23 1:36 PM) WBC [4.6-10.9 K/uL] 7.8 K/uL (06/23/23 1:36 PM) Sodium [136-149 mmol/L] 137 mmol/L (06/23/23 1:36 PM) Albumin/Globulin Ratio [1.01-2.49] 0.85 *LOW* (06/23/23 1:36 PM) Ca Corrected [8.6-10.0 mg/dL] 10.4 mg/dL *HI* (06/23/23 1:36 PM) Glucose [71-109 mg/dL] 85 mg/dL (06/23/23 1:36 PM) MPV [7.5-10.3 fL] 9.6 fL (06/23/23 1:36 PM) Chloride [96-109 mmol/L] 103 mmol/L (06/23/23 1:36 PM) Sed Rate Manual [1-19] 20 *HI* (06/23/23 1:36 PM) TSH [0.35-3.99 uIU/mL] 0.86 uIU/mL (06/23/23 1:36 PM) C Reactive Protein [0.00-0.90 mg/dL] 0.3 4 mg/dL (06/23/23 1:36 PM) Amylase [26-114 U/L] 58 U/L (06/23/23 1:36 PM) Lipase [17-76 U/L] 36 U/L (06/23/23 1:36 PM) Carbon Dioxide [22-33 mmol/L] 29 mmol/L (06/23/23 1:36 PM) Osmol Calc [281-300 mOsm/kg] 275 mOsm/kg *LOW* (06/23/23 1:36 PM) 1Interpretive Data: CKD is defined by the presence of glomerular filtration rate (GFR) <60 mL for>3 months and/or evidence of kidney damage (eg, structural abnormalities, histologic abnormalities, albuminuria, urinary sediment abnormalities, renal tubular disorders, and/or history of kidney tr ansplantation) for >3months. This table provides interpretation of specific eGFR values. Creatinine measurements, and therefore eGFR calculations, are affected by very high or very low muscle mass, muscle injury, a diet very high in meat, hepatic cirrhosis, certain drugs, etc. Stages of CKD: Stage Description GFR mL/min 1 Kidney damage with normal or increased GFR 90 2 Kidney damage with mild decrease in GFR 60 to 89 3 Moderate decrease in GFR 30 to 59 4 Severe decrease in GFR 15 to 29 5 Kidney failure <15 (or dialysis) Note: GFR Normal range >60, equation not validated for ages <18 and >70 and women. 2Interpretive Data: INR Interpretive Data Thrombotic Disorder Recommended INR Prophylaxis/treatment of: Venous Thrombosis 2.0-3.0 Pulmonary Embolism 2.0-3.0 Prevention of Systemic Embolism from: Tissue Heart Valves 2.0-3.0 Myocardial Infarction 2.0-3.0 (prevent systemic embolism) Valvular Heart Disease 2.0-3.0 Atrial Fibrilation 2.0-3.0 Mechanical Prosthetic Valves 2.5.3.5 Social History Social History Type Response Sex Female Patient Care team information Care Team Related Persons Name: AUGIE DUENASFANY Address: Home
--- OUTSIDE RECORDS SUMMARY | 2023-09-01 07:11 | XMS_ITS | Continuity of Care Document ---
Author Name Unknown Organization [facility] Address [address] [place] [id number] Encounter ASA_MATT [id number] Date(s): 06/30/23 - 06/30/[address] [address]- Discharge Disposition: Home or Self Care Attending Physician: IONA DAVIDSON MD Allergies, Adverse Reactions, Alerts Substance Reaction Severity Status sulfa drugs Unknown Active Assessment and Plan Extracted from: Title:Clinical Summary Author:Rin Farris Date:06/30/23 [place] [address] [place],??[place]??[address] Clinical Discharge Summary PATIENT INFORMATION Name: TAYLOR BALL : 1940 [facility] Admitting Physician: Attending Physician: IONA DAVIDSON MD PCP: Discharge Diagnosis: PATIENT EDUCATION INFORMATION Instructions: Colon Polyps; Low-FODMAP Eating Plan; Colonoscopy, Adult, Care After, Pebm-[id number]; FDC DDC ANTI-REFLUX INSTRUCTIONS(CUSTOM); Gastritis, Adult, Punq-gl-[id number]; Hiatal Hernia; Esophageal Dilatation; Monitored Anesthesia Care, Care After Medication Leaflets Follow-up With: Address: When: IONA DAVIDSON [address] [place] [phone] Business (1) 07/21/2023 13:30:00 MEDICATION LIST Active Medication Orders Prior to Transfer: Order Name Order Details omeprazole 40 mg 1 cap(s), Oral, Daily, 90 cap(s), 0, 0, 06/30/23 8:50:00 CDT, Maintenance, [address] [facility] [place] [address], Route to Pharmacy Electronically, [facility], 1 cap(s) Oral Daily Patient? s Active Home Medication List Discharge: [facility], [address] [phone], [phone] omeprazole (omeprazole 40 mg oral delayed release capsule) 1 capsule(s) Oral every day. Refills: 0. Other Medications acetaminophen (acetaminophen 325 mg oral tablet, disintegrating) 2 Tab(s) Oral every 12 hours (interval). albuterol (Albuterol (Eqv-ProAir HFA) 90 mcg/inh inhalation aerosol) 2 Puff(s) Inhalation every 6 hours (interval). cholestyramine (cholestyramine 4 g/9 g oral powder for reconstitution) 1 Packet(s) Oral twice a day. ergocalciferol (Vitamin D2 50,000 intl units oral capsule) 1 capsule(s) Oral once a month. fenofibrate (fenofibrate 48 mg oral tablet) 1 Tab(s) Oral every day. galantamine (galantamine 8 mg oral tablet) 0.5 tab Oral twice a day. isosorbide mononitrate (isosorbide mononitrate 30 mg oral tablet, extended release) 0.5 tab Oral once a day (in the morning). lisinopril (lisinopril 5 mg oral tablet) 1 Tab(s) Oral every day. loperamide (loperamide 2 mg oral capsule) 1 capsule(s) Oral every 4 hours (interval) as needed for loose stool. magnesium oxide (magnesium oxide 400 mg oral tablet) 1 Tab(s) Oral every day. melatonin (melatonin 10 mg oral tablet) 1 Tab(s) Oral once a day (at bedtime). memantine (memantine 10 mg oral tablet) 1 Tab(s) Oral twice a day. multivitamin with minerals (Theravim M oral tablet) 1 Tab(s) Oral every day. nitroglycerin (nitroglycerin 0.4 mg sublingual tablet) 1 Tab(s) Sublingual every 5 minutes as needed for chest pain. OLANZapine (OLANZapine 5 mg oral tablet) 1 Tab(s) Oral every day. omega-3 polyunsaturated fatty acids (Fish Oil 1000 mg oral capsule) 1 capsule(s) Oral twice a day. ondansetron (ondansetron 8 mg oral tablet) 1 Tab(s) Oral every 8 hours as needed as needed for nausea/vomiting. PARoxetine (PARoxetine 20 mg oral tablet) 1 Tab(s) Oral every day. promethazine (promethazine 6.25 mg/5 mL oral syrup) 5 Milliliter(s) Oral every 6 hours as needed cough. OrdersOrder Name Order Details Functional Status 06/30/23 Sensory Deficits No Deficit ADLs Independent Medications acetaminophen 325 mg oral tablet, disintegrating = 2 tab(s), Oral, [id number], # 50 tab(s), 0 Refill(s) Start Date: 06/24/23 Status: Ordered Albuterol (Eqv-ProAir HFA) 90 mcg/inh inhalation aerosol 2 puff(s), Inhale, [id number], 0 Refill(s) Start Date: 06/24/23 Status: Ordered cholestyramine 4 g/9 g oral powder for reconstitution = 1 packet(s), Oral, BID, # 60 EA, 0 Refill(s) Start Date: 06/24/23 Status: Ordered fenofibrate 48 mg oral tablet = 1 tab(s), Oral, Daily, # 30 tab(s), 0 Refill(s) Start Date: 06/24/23 Status: Ordered Fish Oil 1000 mg oral capsule = 1 cap(s), Oral, BID, # 60 cap(s), 0 Refill(s) Start Date: 06/24/23 Status: Ordered galantamine 8 mg oral tablet 0.5 tab, Oral, BID, # 180 tab(s), 0 Refill(s) Start Date: 06/24/23 Status: Ordered isosorbide mononitrate 30 mg oral tablet, extended release 0.5 tab, Oral, QAM, # 30 tab(s), 0 Refill(s) Start Date: 06/24/23 Status: Ordered lisinopril 5 mg oral tablet = 1 tab(s), Oral, Daily, # 30 tab(s), 0 Refill(s) Start Date: 06/24/23 Status: Ordered loperamide 2 mg oral capsule = 1 cap(s), Oral, [id number], PRN for loose stool, # 60 cap(s), 0 Refill(s) Start Date: 06/24/23 Status: Ordered magnesium oxide 400 mg oral tablet = 1 tab(s), Oral, Daily, # 7 tab(s), 0 Refill(s) Start Date: 06/24/23 Status: Ordered melatonin 10 mg oral tablet = 1 tab(s), Oral, Daily at Bedtime, 0 Refill(s) Start Date: 06/24/23 Status: Ordered memantine 10 mg oral tablet = 1 tab(s), Oral, BID, # 60 tab(s), 0 Refill(s) Start Date: 06/24/23 Status: Ordered nitroglycerin 0.4 mg sublingual tablet = 1 tab(s), Sublingual, q5min, PRN for chest pain, # 100 tab(s), 0 Refill(s) Start Date: 06/24/23 Status: Ordered OLANZapine 5 mg oral tablet = 1 tab(s), Oral, Daily, # 30 tab(s), 0 Refill(s) Start Date: 06/24/23 Status: Ordered omeprazole 40 mg oral delayed release capsule = 1 cap(s), Oral, Daily, # 90 cap(s), 0 Refill(s), Pharmacy: [facility] Start Date: 06/30/23 Status: Ordered ondansetron 8 mg oral tablet = 1 tab(s), Oral, q8H, PRN as needed for nausea/vomiting, 0 Refill(s) Start Date: 06/24/23 Status: Ordered PARoxetine 20 mg oral tablet = 1 tab(s), Oral, Daily, # 30 tab(s), 0 Refill(s) Start Date: 06/24/23 Status: Ordered promethazine 6.25 mg/5 mL oral syrup = 5 mL, Oral, q6H, PRN cough, # 120 mL, 0 Refill(s) Start Date: 06/24/23 Status: Ordered Theravim M oral tablet 1 tab(s), Oral, Daily, # 30 tab(s), 0 Refill(s) Start Date: 06/24/23 Status: Ordered Vitamin D2 50,000 intl units oral capsule = 1 cap(s), Oral, q30D, # 8 cap(s), 0 Refill(s) Start Date: 06/24/23 Status: Ordered Mental Status 06/30/23 Affect/Behavior Appropriate, Calm, Cooperative 06/30/23 Orientation Assessment Not oriented to s ituation Problem List Condition Confirmation Course Effective Dates Status Health St atus Informant Dementia Confirmed Active Depression Confirmed Active Diabetes mellitus Confirmed Active Gastric ulcer Confirmed Active HTN (hypertension) Confirmed Active Breast cancer Confirmed Active Gastric outlet obstruction Confirmed Active Pyloric stenosis Confirmed Active Lewy body disease Confirmed Active Duodenal ulcer Confirmed Active Procedures Procedure Date Related Diagnosis Body Site Status Colonoscopy With Biopsy 1 06/30/23 Completed EGD With Balloon Dilatation And Biopsy 2 06/30/23 Completed Left Breast Lumpectomy Co mpleted 1auto-populated from documented surgical case 2auto-populated from documented surgical case Results Laboratory List Name Date .Glucose POC Bedside 06/30/23 Most recent to oldest [Reference Range]: 1 Glu POC Bdside [65-90 mg/dL] 108 mg/dL 1 *HI* (06/30/23 7:45 AM) 1Result Comment: It Infrastructure Project Manager ID: [id number] Vital Signs Most recent to oldest [Reference Range]: 1 Blood Pressure [95-120/59-81 mmHg] 138/6 5mmHg *HI* (06/30/23 10:07 AM) Mean Arterial Pressure, Cuff 89 mmHg (06/30/23 10:07 AM) Temperature Tympanic [96.6-99.6 DegF] 98 .6 DegF (06/30/23 9:30 AM) Temperature Temporal Artery [97.6-100.6 DegF] 98.8 DegF (06/30/23 7:26 AM) SpO2 98 % (06/30/23 9:30 AM) Peripheral Pulse Rate [60-100 bpm] 71 bp m (06/30/23 9:30 AM) Heart Rate Monitored [60-100 bpm] 68 bpm (06/30/23 9:30 AM) Respiratory Rate [10-21 br/min] 17 br/mi n (06/30/23 9:45 AM) Advance Directives No (06/30/23 7:20 AM) Social History Social History Type Response Smoking Status Tobacco use status 3 0 days prior to admission No tobacco use of any form;Never (less than 100 in lifetime) entered on: 06/24/23 Sex Female Hospital Discharge Instructions Patient Education 06/30/2023 10:06:07 Colon Polyps Colon Polyps Colon polyps are tissue growths inside the colon, which is part of the large intestine. They are one of the types of polyps that can grow in the body. A polyp may be a round bump or a mushroom-shapedgrowth. You could have one polyp or more than one. Most colon polyps are noncancerous (benign). However, some colon polyps can become cancerous over time. Finding and removing the polyps early can help prevent this. What are the causes? The exact cause of colon polyps is not known. What increases the risk? The following factors may make you more likely to develop this condition: ??? Having a family history of colorectal cancer or colon polyps. ??? Being older than 45 years of age. ??? Being younger than 45 years of age and having a significant family history of colorectal canceror colon polyps or a genetic condition that puts you at higher risk of getting colon polyps. ??? Having inflammatory bowel disease, such as ulcerative colitis or Crohn's disease. ??? Having certain conditions passed from parent to child (hereditary conditions), such as: ??? Familial adenomatous polyposis (FAP). ??? Castillo syndrome. ??? Turcot syndrome. ??? Peutz???Jeghers syndrome. ??? MUTYH-associated polyposis (MAP). ??? Being overweight. ??? Certain lifestyle factors. These include smoking cigarettes, drinking too much alcohol, not getting enough exercise, and eating a diet that is high in fat and red meat and low in fiber. ??? Having had childhood cancer that was treated with radiation of the abdomen. What are the signs or symptoms? Many times, there are no symptoms. If you have symptoms, they may include: ??? Blood coming from the rectum during a bowel movement. ??? Blood in the stool (feces). The blood may be bright red or very dark in color. ??? Pain in the abdomen. ??? A change in bowel habits, such as constipation or diarrhea. How is this diagnosed? This condition is diagnosed with a colonoscopy. This is a procedure in which a lighted, flexible scope is inserted into the opening between the buttocks (anus) and then passed into the colon to examine the area. Polyps are sometimes found when a colonoscopy is done as part of routine cancer screening tests. How is this treated? This condition is treated by removing any polyps that are found. Most polyps can be removed during a colonoscopy. Those polyps will then be tested for cancer. Additional treatment may be needed depending on the results of testing. Follow these instructions at home: Eating and drinking ??? Eat foods that are high in fiber, such as fruits, vegetables, and whole grains. ??? Eat foods that are high in calcium and vitamin D, such as milk, cheese, yogurt, eggs, liver, fish, and broccoli. ??? Limit foods that are high in fat, such as fried foods and desserts. ??? Limit the amount of red meat, precooked or cured meat, or other processed meat that you eat, such as hot dogs, sausages, ramos, or meat loaves. ??? Limit sugary drinks. Lifestyle ??? Maintain a healthy weight, or lose weight if recommended by your health care provider. ??? Exercise every day or as told by your health care provider. ??? Do not use any products that contain nicotine or tobacco, such as cigarettes, e-cigarettes, andchewing tobacco. If you need help quitting, ask your health care provider. ??? Do not drink alcohol if: ??? Your health care provider tells you not to drink. ??? You are , may be , or are planning to become . ??? If you drink alcohol: ??? Limit how much you use to: ??? 0???1 drink a day for women. ??? 0???2 drinks a day for men. ??? Know how much alcohol is in your drink. In the [place] one drink equals one 12 oz bottle of beer (355 mL), one 5 oz glass of wine (148 mL), or one 1?? oz glass of hard liquor (44 mL). General instructions ??? Take ancy-zcz-jnfpprm and prescription medicines only as told by your health care provider. ??? Keep all follow-up visits. This is important. This includes having regularly scheduled colonoscopies. Talk to your health care provider about when you need a colonoscopy. Contact a health care provider if: ??? You have new or worsening bleeding during a bowel movement. ??? You have new or increased blood in your stool. ??? You have a change in bowel habits. ??? You lose weight for no known reason. Summary ??? Colon polyps are tissue growths inside the colon, which is part of the large intestine. They are one type of polyp that can grow in the body. ??? Most colon polyps are noncancerous (benign), but some can become cancerous over time. ??? This condition is diagnosed with a colonoscopy. ??? This condition is treated by removing any polyps that are found. Most polyps can be removed during a colonoscopy. This information is not intended to replace advice given to you by your health care provider. Make sure you discuss any questions you have with your health care provider. Document Revised: 12/05/2020 Document Reviewed: 12/05/2020 [employer] Patient Education ?? 2022 [employer]. 06/30/2023 10:05:56 Low-FODMAP Eating Plan Low-FODMAP Eating Plan FODMAP stands for fermentable oligosaccharides, disaccharides, monosaccharides, and polyols. These are sugars that are hard for some people to digest. A low- FODMAP eating plan may help some people who have irritable bowel syndrome (IBS) and certain other bowel (intestinal) diseases to manage their symptoms. This meal plan can be complicated to follow. Work with a diet and institutional nutrition consultant (dietitian) to make a low-FODMAP eating plan that is right for you. A dietitian can help make sure that you get enough nutrition from this diet. What are tips for following this plan? Reading food labels ??? Check labels for hidden FODMAPs such as: ??? High-fructose syrup. ??? Honey. ??? Agave. ??? Natural fruit flavors. ??? Onion or garlic powder. ??? Choose low-FODMAP foods that contain 3???4 grams of fiber per serving. ??? Check food labels for serving sizes. Eat only one serving at a time to make sure FODMAP levels stay low. Shopping ??? Shop with a list of foods that are recommended on this diet and make a meal plan. Meal planning ??? Follow a low-FODMAP eating plan for up to 6 weeks, or as told by your health care provider or dietitian. ??? To follow the eating plan: 1. Eliminate high-FODMAP foods from your diet completely. Choose only low-FODMAP foods to eat. You will do this for 2-6 weeks. 2. Gradually reintroduce high-FODMAP foods into your diet one at a time. Most people should wait a few days before introducing the next new high-FODMAP food into their meal plan. Your dietitian can recommend how quickly you may reintroduce foods. 3. Keep a daily record of what and how much you eat and drink. Make note of any symptoms that you have after eating. 4. Review your daily record with a dietitian regularly to identify which foods you can eat and which foods you should avoid. General tips ??? Drink enough fluid each day to keep your urine pale yellow. ??? Avoid processed foods. These often have added sugar and may be high in FODMAPs. ??? Avoid most dairy products, whole grains, and sweeteners. ??? Work with a dietitian to make sure you get enough fiber in your diet. ??? Avoid high FODMAP foods at meals to manage symptoms. Recommended foods Fruits Bananas, oranges, tangerines, jacki, limes, blueberries, raspberries, strawberries, grapes, cantaloupe, honeydew melon, kiwi, papaya, passion fruit, and pineapple. Limited amounts of dried cranberries, banana chips, and shredded coconut. Vegetables Eggplant, zucchini, cucumber, peppers, green beans, muller sprouts, lettuce, arugula, kale, Vietnamese chard, spinach, abbie greens, bok matilde, summer squash, potato, and tomato. Limited amounts of corn, carrot, and sweet potato. Green parts of scallions. Grains Gluten-free grains, such as rice, oats, buckwheat, quinoa, corn, polenta, and millet. Gluten-free pasta, bread, or cereal. Rice noodles. Sebastian tortillas. Meats and other proteins Unseasoned beef, pork, poultry, or fish. Eggs. Ramos. Tofu (firm) and tempeh. Limited amounts of nuts and seeds, such as almonds, walnuts, brazil nuts, pecans, peanuts, nut butters, pumpkin seeds, yennifer seeds, and sunflower seeds. Dairy Lactose-free milk, yogurt, and kefir. Lactose-free cottage cheese and ice cream. Non-dairy milks, such as almond, coconut, hemp, and rice milk. Non-dairy yogurt. Limited amounts of goat cheese, brie,mozzarella, parmesan, macedonian, and other hard cheeses. Fats and oils Butter-free spreads. Vegetable oils, such as olive, canola, and sunflower oil. Seasoning and other foods Artificial sweeteners with names that do not end in ol, such as aspartame, saccharine, and stevia. Maple syrup, white table sugar, raw sugar, brown sugar, and molasses. Mayonnaise, soy sauce, and tamari. Fresh basil, coriander, parsley, antonio, and thyme. Beverages Water and mineral water. Sugar-sweetened soft drinks. Small amounts of orange juice or cranberry juice. Black and green tea. Most dry amanda. Coffee. The items listed above may not be a complete list of foods and beverages you can eat. Contact a dietitian for more information. Foods to avoid Fruits Fresh, dried, and juiced forms of apple, pear, watermelon, peach, plum, cherries, apricots, blackberries, boysenberries, figs, nectarines, and tamela. Avocado. Vegetables Chicory root, artichoke, asparagus, cabbage, snow peas, [place] sprouts, broccoli, sugar snap peas, mushrooms, celery, and cauliflower. Onions, garlic, leeks, and the white part of scallions. Grains Wheat, including kamut, durum, and semolina. Barley and bulgur. Couscous. Wheat- based cereals. Wheat noodles, bread, crackers, and pastries. Meats and other proteins Fried or fatty meat. Sausage. Cashews and pistachios. Soybeans, baked beans, black beans, chickpeas, kidney beans, kadeem beans, navy beans, lentils, black- eyed peas, and split peas. Dairy Milk, yogurt, ice cream, and soft cheese. Cream and sour cream. Milk-based sauces. Custard. Buttermilk. Soy milk. Seasoning and other foods Any sugar-free gum or candy. Foods that contain artificial sweeteners such as sorbitol, mannitol, isomalt, or xylitol. Foods that contain honey, high-fructose corn syrup, or agave. Bouillon, vegetable stock, beef stock, and chicken stock. Garlic and onion powder. Condiments made with onion, such ashummus, chutney, pickles, relish, salad dressing, and salsa. Tomato paste. Beverages Chicory-based drinks. Coffee substitutes. Chamomile tea. Fennel tea. Sweet or fortified amanda such as port or serenity. Diet soft drinks made with isomalt, mannitol, maltitol, sorbitol, or xylitol. Apple, pear, and tamela juice. Juices with high-fructose corn syrup. The items listed above may not be a complete list of foods and beverages you should avoid. Contact a dietitian for more information. Summary ??? FODMAP stands for fermentable oligosaccharides, disaccharides, monosaccharides, and polyols. These are sugars that are hard for some people to digest. ??? A low-FODMAP eating plan is a short-term diet that helps to ease symptoms of certain bowel diseases. ??? The eating plan usually lasts up to 6 weeks. After that, high-FODMAP foods are reintroduced gradually and one at a time. This can help you find out which foods may be causing symptoms. ??? A low-FODMAP eating plan can be complicated. It is best to work with a dietitian who has experience with this type of plan. This information is not intended to replace advice given to you by your health care provider. Make sure you discuss any questions you have with your health care provider. Document Revised: 01/03/2021 Document Reviewed: 01/03/2021 [employer] Patient Education ?? 2022 [employer]. 06/30/2023 10:05:47 Colonoscopy, Adult, Care After, Atxs-oe-Crll Colonoscopy, Adult, Care After After a colonoscopy, it is common to have: ??? A small amount of blood in your poop (stool) for 24 hours. ??? Some gas. ??? Mild cramping or bloating in your belly (abdomen). Follow these instructions at home: Your doctor may give you more instructions. If you have problems, contact your doctor. Eating and drinking ??? Drink enough fluid to keep your pee (urine) pale yellow. ??? Follow instructions from your doctor about what you cannot eat or drink. ??? Return to your normal diet as told by your doctor. Avoid heavy or fried foods that are hard to digest. Activity ??? Rest as told by your doctor. ??? Get up to take short walks every 1 to 2 hours. Ask for help if you feel weak or unsteady. ??? Return to your normal activities when your doctor says that it is safe. To help cramping and bloating: ??? Try walking around. ??? If told, put heat on your belly. Do this as told by your doctor. Use the heat source that your doctor recommends, such as a moist heat pack or a heating pad. ??? Place a towel between your skin and the heat source. ??? Leave the heat on for 20???30 minutes. ??? Take off the heat if your skin turns bright red. This is very important. If you cannot feel pain, heat, or cold, you have a greater risk of getting burned. General instructions ??? If you were given a sedative during your procedure, do not drive or use machines until your doctor says that it is safe. A sedative is a medicine that helps you relax. ??? For the first 24 hours after the procedure: ??? Do not sign important documents. ??? Do not drink alcohol. ??? Do your daily activities more slowly than normal. ??? Eat foods that are soft and easy to digest. ??? Take fczl-cuj-lquaspn and prescription medicines only as told by your doctor. ??? Keep all follow-up visits. Contact a doctor if: ??? You have blood in your poop 2???3 days after the procedure. Get help right away if: ??? You have more than a small amount of blood in your poop. ??? You see large clumps of tissue (blood clots) in your poop. ??? Your belly is swollen. ??? You feel like you may vomit (nauseous). ??? You vomit. ??? You have a fever. ??? You have belly pain that gets worse, and medicine does not help your pain. These symptoms may be an emergency. Get help right away. Call 911. ??? Do not wait to see if the symptoms will go away. ??? Do not drive yourself to the hospital. Summary ??? After a colonoscopy, it is common to have a small amount of blood in your poop. You may also have mild cramping and bloating in your belly. ??? If you were given a sedative during your procedure, do not drive or use machines until your doctor says that it is safe. A sedative is a medicine that helps you relax. ??? Get help right away if you have a lot of blood in your poop, feel like you may vomit, have a fever, or have more belly pain. This information is not intended to replace advice given to you by your health care provider. Make sure you discuss any questions you have with your health care provider. Document Revised: 04/09/2022 Document Reviewed: 04/09/2022 [employer] Patient Education ?? 2022 [employer]. 06/30/2023 10:05:32 [facility] ANTI-REFLUX IN[facility]CTIONS(CUSTOM) ANTI-REFLUX INSTRUCTIONS 1.Avoid spicy, acidic, 2.Don???t tomato-based, or fatty exercise too soon foods like chocolate, after eating. citrus fruits, & juices. 3. Limit your intake 4.Avoid bedtime of tea, alcohol, erika, snacks & eat meals at & even coffee, even least 3-4 hours before decaffeinated. lying down. 5. Watch your weight. (Being overweight increases intra-abdominal pressure, which can aggravate reflux). 6. Don???t gorge yourself at mealtime. 7. Elevate the head of 8.See your physician if you are taking antacids 3 or more your bed with blocks. times a week. 9. Stop (or at least cut down on) smoking. PATIENT INSTRUCTION SHEET FOR ANTI-REFLUX PROCEDURES PURPOSE: The purpose of these instructions is to educate the patient regarding those procedures which, when followed will reduce the amount of acid which refluxes or comes up from the stomach into the esophagus (swallowing tube). By following these instructions, one minimizes the degree of acid damage to the esophagus. The stomach tolerates acid exposure very well for the most part. However, the esophagus is not developed in such a way that it can tolerate much acid exposure. This can result inacid damage to the esophagus which is referred to as ???reflux esophagitis?? . This can frequently be associated with other complications such as strictures and difficulty swallowing. Many of these same symptoms are associated with those complaints that patients have when they have a ???hiatal hernia?? . However, the presence of a hiatal hernia does not necessarily mean that one will develop reflux esophagitis; nor does the presence of reflux esophagitis indicate that one necessarily has to have a hiatal hernia. These two can frequently occur together, however. INSTRUCTIONS: 1. Elevate the head of the bed at the headboard four to six inches using blocks or bricks (so that you sleep at a downward angle from head to toe). 2. You should refrain from taking anything by mouth within 2 hours of reclining- this means you should avoid lying down in bed or in a recliner for 2 hours after any food or drink is taken by mouth. Therefore, you should complete your evening meal at least 2 hours prior to bedtime. 3. Avoid tight-fitting clothing on the abdominal area. 4. Avoid those foods which seem to make the symptoms worse; otherwise there are no strict dietary limitations. (Frequently, highly concentrated foods such as orange juice or gas forming foods such aschili will result in more symptoms). 5. Avoid heavy lifting or leaning over and straining. 6. Take antacids as needed for discomfort (such as Maalox, Mylanta, or Gaviscon). 7. Take all medications as recommended by your physician and continue to refill them and take them until he tells you that it is ok to stop them. 06/30/2023 10:05:27 Gastritis, Adult, Aaln-qz-Ivrc Gastritis, Adult Gastritis is irritation and swelling (inflammation) of the stomach. There are two kinds of gastritis: ??? Acute gastritis. This kind develops quickly. ??? Chronic gastritis. This kind is much more common. It develops slowly and lasts for a long time. It is important to get help for this condition. If you do not get help, your stomach can bleed, andyou can get sores (ulcers) in your stomach. What are the causes? This condition may be caused by: ??? Germs that get to your stomach and cause an infection. ??? Drinking too much alcohol. ??? Medicines you are taking. ??? Having too much acid in the stomach. ??? Having a disease of the stomach. Other causes may include: ??? An allergic reaction. ??? Some cancer treatments (radiation). ??? Smoking cigarettes or using products that contain nicotine or tobacco. In some cases, the cause of this condition is not known. What increases the risk? Having a disease of the intestines. ??? Having Crohn's disease. ??? Using aspirin or ibuprofen and other NSAIDs to treat other conditions. ??? Stress. What are the signs or symptoms? Pain in your stomach. ??? A burning feeling in your stomach. ??? Feeling like you may vomit (nauseous). ??? Vomiting or vomiting blood. ??? Feeling too full after you eat. ??? Weight loss. ??? Bad breath. ??? Blood in your poop (stool). In some cases, there are no symptoms. How is this treated? This condition is treated with medicines. The medicines that are used depend on what caused the condition. You may be given: ??? Antibiotic medicine, if your condition was caused by an infection from germs. ??? H2 blockers and similar medicines, if your condition was caused by too much acid in the stomach. Treatment may also include stopping the use of certain medicines, such as aspirin or ibuprofen. Follow these instructions at home: Medicines ??? Take lipx-nub-xfmukwq and prescription medicines only as told by your doctor. ??? If you were prescribed an antibiotic medicine, take it as told by your doctor. Do not stop taking it even if you start to feel better. Alcohol use ??? Do not drink alcohol if: ??? Your doctor tells you not to drink. ??? You are , may be , or are planning to become . ??? If you drink alcohol: ??? Limit your use to: ??? 0???1 drink a day for women. ??? 0???2 drinks a day for men. ??? Know how much alcohol is in your drink. In the [place] one drink equals one 12 oz bottle of beer (355 mL), one 5 oz glass of wine (148 mL), or one 1?? oz glass of hard liquor (44 mL). General instructions ??? Eat small meals often, instead of large meals. ??? Avoid foods and drinks that make you feel worse. ??? Drink enough fluid to keep your pee (urine) pale yellow. ??? Talk with your doctor about ways to manage stress. You can exercise or do deep breathing, meditation, or yoga. ??? Do not smoke or use any products that contain nicotine or tobacco. If you need help quitting, ask your doctor. ??? Keep all follow-up visits. Contact a doctor if: ??? Your symptoms get worse. ??? Your stomach pain gets worse. ??? Your symptoms go away and then come back. ??? You have a fever. Get help right away if: ??? You vomit blood or something that looks like coffee grounds. ??? You have black or dark red poop. ??? You throw up any time you try to drink fluids. These symptoms may be an emergency. Get help right away. Call your local emergency services ([address] [place] [address] [place] ??? Do not wait to see if the symptoms will go away. ??? Do not drive yourself to the hospital. Summary ??? Gastritis is irritation and swelling (inflammation) of the stomach. ??? You must get help for this condition. If you do not get help, your stomach can bleed, and you can get sores (ulcers) in your stomach. ??? You can be treated with medicines for germs or medicines to block too much acid in your stomach. This information is not intended to replace advice given to you by your health care provider. Make sure you discuss any questions you have with your health care provider. Document Revised: 12/21/2021 Document Reviewed: 12/21/2021 [employer] Patient Education ?? 2022 [employer] 06/30/2023 10:05:05 Hiatal Hernia Hiatal Hernia A hiatal hernia occurs when part of the stomach slides above the muscle that separates the abdomen from the chest (diaphragm). A person can be born with a hiatal hernia (congenital), or it may develop over time. In almost all cases of hiatal hernia, only the top part of the stomach pushes through the diaphragm. Many people have a hiatal hernia with no symptoms. The larger the hernia, the more likely it is that you will have symptoms. In some cases, a hiatal hernia allows stomach acid to flow back into the tube that carries food from your mouth to your stomach (esophagus). This may cause heartburn symptoms. The development of heartburn symptoms may mean that you have a condition called gastroesophageal reflux disease (GERD). What are the causes? This condition is caused by a weakness in the opening (hiatus) where the esophagus passes through the diaphragm to attach to the upper part of the stomach. A person may be born with a weakness in thehiatus, or a weakness can develop over time. What increases the risk? This condition is more likely to develop in: ??? Older people. Age is a major risk factor for a hiatal hernia, especially if you are over the age of 50. ??? women. ??? People who are overweight. ??? People who have frequent constipation. What are the signs or symptoms? Symptoms of this condition usually develop in the form of GERD symptoms. Symptoms include: ??? Heartburn. ??? Upset stomach (indigestion). ??? Trouble swallowing. ??? Coughing or wheezing. Wheezing is making high-pitched whistling sounds when you breathe. ??? Sore throat. ??? Chest pain. ??? Nausea and vomiting. How is this diagnosed? This condition may be diagnosed during testing for GERD. Tests that may be done include: ??? X-rays of your stomach or chest. ??? An upper gastrointestinal (GI) series. This is an X-ray exam of your GI tract that is taken after you swallow a chalky liquid that shows up clearly on the X-ray. ??? Endoscopy. This is a procedure to look into your stomach using a thin, flexible tube that has atiny camera and light on the end of it. How is this treated? This condition may be treated by: ??? Dietary and lifestyle changes to help reduce GERD symptoms. ??? Medicines. These may include: ??? Atxm-wzj-qpqiitv antacids. ??? Medicines that make your stomach empty more quickly. ??? Medicines that block the production of stomach acid (H2 blockers). ??? Stronger medicines to reduce stomach acid (proton pump inhibitors). ??? Surgery to repair the hernia, if other treatments are not helping. If you have no symptoms, you may not need treatment. Follow these instructions at home: Lifestyle and activity ??? Do not use any products that contain nicotine or tobacco. These products include cigarettes, chewing tobacco, and vaping devices, such as e-cigarettes. If you need help quitting, ask your health care provider. ??? Try to achieve and maintain a healthy body weight. ??? Avoid putting pressure on your abdomen. Anything that puts pressure on your abdomen increases the amount of acid that may be pushed up into your esophagus. ??? Avoid bending over, especially after eating. ??? Raise the head of your bed by putting blocks under the legs. This keeps your head and esophagushigher than your stomach. ??? Do not wear tight clothing around your chest or stomach. ??? Try not to strain when having a bowel movement, when urinating, or when lifting heavy objects. Eating and drinking ??? Avoid foods that can worsen GERD symptoms. These may include: ??? Fatty foods, like fried foods. ??? Canby fruits, like oranges or lemon. ??? Other foods and drinks that contain acid, like orange juice or tomatoes. ??? Spicy food. ??? Chocolate. ??? Eat frequent small meals instead of three large meals a day. This helps prevent your stomach from getting too full. ??? Eat slowly. ??? Do not lie down right after eating. ??? Do not eat 1???2 hours before bed. ??? Do not drink beverages with caffeine. These include cola, coffee, cocoa, and tea. ??? Do not drink alcohol. General instructions ??? Take tvpm-lvc-hjcgegq and prescription medicines only as told by your health care provider. ??? Keep all follow-up visits. Your health care provider will want to check that any new prescribedmedicines are helping your symptoms. Contact a health care provider if: ??? Your symptoms are not controlled with medicines or lifestyle changes. ??? You are having trouble swallowing. ??? You have coughing or wheezing that will not go away. ??? Your pain is getting worse. ??? Your pain spreads to your arms, neck, jaw, teeth, or back. ??? You feel nauseous or you vomit. Get help right away if: ??? You have shortness of breath. ??? You vomit blood. ??? You have bright red blood in your stools. ??? You have black, tarry stools. These symptoms may be an emergency. Get help right away. Call 911. ??? Do not wait to see if the symptoms will go away. ??? Do not drive yourself to the hospital. Summary ??? A hiatal hernia occurs when part of the stomach slides above the muscle that separates the abdomen from the chest. ??? A person may be born with a weakness in the hiatus, or a weakness can develop over time. ??? Symptoms of a hiatal hernia may include heartburn, trouble swallowing, or sore throat. ??? Management of a hiatal hernia includes eating frequent small meals instead of three large mealsa day. ??? Get help right away if you vomit blood, have bright red blood in your stools, or have black, tarry stools. This information is not intended to replace advice given to you by your health care provider. Make sure you discuss any questions you have with your health care provider. Document Revised: 10/14/2022 Document Reviewed: 10/14/2022 [employer] Patient Education ?? 2022 [employer] 06/30/2023 10:04:55 Esophageal Dilatation Esophageal Dilatation Esophageal dilatation, also called esophageal dilation, is a procedure to widen or open a blocked or narrowed part of the esophagus. The esophagus is the part of the body that moves food and liquid from the mouth to the stomach. You may need this procedure if: ??? You have a buildup of scar tissue in your esophagus that makes it difficult, painful, or impossible to swallow. This can be caused by gastroesophageal reflux disease (GERD). ??? You have cancer of the esophagus. ??? There is a problem with how food moves through your esophagus. In some cases, you may need this procedure repeated at a later time to dilate the esophagus gradually. Tell a health care provider about: ??? Any allergies you have. ??? All medicines you are taking, including vitamins, herbs, eye drops, creams, and ngqh-zvi-iivtmsp medicines. ??? Any problems you or family members have had with anesthetic medicines. ??? Any blood disorders you have. ??? Any surgeries you have had. ??? Any medical conditions you have. ??? Any antibiotic medicines you are required to take before dental procedures. ??? Whether you are or may be . What are the risks? Generally, this is a safe procedure. However, problems may occur, including: ??? Bleeding due to a tear in the lining of the esophagus. ??? A hole, or perforation, in the esophagus. What happens before the procedure? Ask your health care provider about: ??? Changing or stopping your regular medicines. This is especially important if you are taking diabetes medicines or blood thinners. ??? Taking medicines such as aspirin and ibuprofen. These medicines can thin your blood. Do not take these medicines unless your health care provider tells you to take them. ??? Taking pxwj-jxc-pshtvjr medicines, vitamins, herbs, and supplements. ??? Follow instructions from your health care provider about eating or drinking restrictions. ??? Plan to have a responsible adult take you home from the hospital or clinic. ??? Plan to have a responsible adult care for you for the time you are told after you leave the hospital or clinic. This is important. What happens during the procedure? You may be given a medicine to help you relax (sedative). ??? A numbing medicine may be sprayed into the back of your throat, or you may gargle the medicine. ??? Your health care provider may perform the dilatation using various surgical instruments, such as: ??? Simple dilators. This instrument is carefully placed in the esophagus to stretch it. ??? Guided wire bougies. This involves using an endoscope to insert a wire into the esophagus. A dilator is passed over this wire to enlarge the esophagus. Then the wire is removed. ??? Balloon dilators. An endoscope with a small balloon is inserted into the esophagus. The balloonis inflated to stretch the esophagus and open it up. The procedure may vary among health care providers and hospitals. What can I expect after the procedure? Your blood pressure, heart rate, breathing rate, and blood oxygen level will be monitored untilyou leave the hospital or clinic. ??? Your throat may feel slightly sore and numb. This will get better over time. ??? You will not be allowed to eat or drink until your throat is no longer numb. ??? When you are able to drink, urinate, and sit on the edge of the bed without nausea or dizziness, you may be able to return home. Follow these instructions at home: ??? Take fkfx-uro-gdlbfqm and prescription medicines only as told by your health care provider. ??? If you were given a sedative during the procedure, it can affect you for several hours. Do not drive or operate machinery until your health care provider says that it is safe. ??? Plan to have a responsible adult care for you for the time you are told. This is important. ??? Follow instructions from your health care provider about any eating or drinking restrictions. ??? Do not use any products that contain nicotine or tobacco, such as cigarettes, e-cigarettes, andchewing tobacco. If you need help quitting, ask your health care provider. ??? Keep all follow-up visits. This is important. Contact a health care provider if: ??? You have a fever. ??? You have pain that is not relieved by medicine. Get help right away if: ??? You have chest pain. ??? You have trouble breathing. ??? You have trouble swallowing. ??? You vomit blood. ??? You have black, tarry, or bloody stools. These symptoms may represent a serious problem that is an emergency. Do not wait to see if the symptoms will go away. Get medical help right away. Call your local emergency services (911 in the [place] Do not drive yourself to the hospital. Summary ??? Esophageal dilatation, also called esophageal dilation, is a procedure to widen or open a blocked or narrowed part of the esophagus. ??? Plan to have a responsible adult take you home from the hospital or clinic. ??? For this procedure, a numbing medicine may be sprayed into the back of your throat, or you may gargle the medicine. ??? Do not drive or operate machinery until your health care provider says that it is safe. This information is not intended to replace advice given to you by your health care provider. Make sure you discuss any questions you have with your health care provider. Document Revised: 01/02/2021 Document Reviewed: 01/02/2021 [employer] Patient Education ?? 2022 [employer]. 06/30/2023 10:04:33 Monitored Anesthesia Care, Care After Monitored Anesthesia Care, Care After This sheet gives you information about how to care for yourself after your procedure. Your health care provider may also give you more specific instructions. If you have problems or questions, contact your health care provider. What can I expect after the procedure? After the procedure, it is common to have: ??? Tiredness. ??? Forgetfulness about what happened after the procedure. ??? Impaired judgment for important decisions. ??? Nausea or vomiting. ??? Some difficulty with balance. Follow these instructions at home: For the time period you were told by your health care provider: ??? Rest as needed. ??? Do not participate in activities where you could fall or become injured. ??? Do not drive or use machinery. ??? Do not drink alcohol. ??? Do not take sleeping pills or medicines that cause drowsiness. ??? Do not make important decisions or sign legal documents. ??? Do not take care of children on your own. Eating and drinking ??? Follow the diet that is recommended by your health care provider. ??? Drink enough fluid to keep your urine pale yellow. ??? If you vomit: ??? Drink water, juice, or soup when you can drink without vomiting. ??? Make sure you have little or no nausea before eating solid foods. General instructions ??? Have a responsible adult stay with you for the time you are told. It is important to have someone help care for you until you are awake and alert. ??? Take mqkd-bbx-dnwllsq and prescription medicines only as told by your health care provider. ??? If you have sleep apnea, surgery and certain medicines can increase your risk for breathing problems. Follow instructions from your health care provider about wearing your sleep device: ??? Anytime you are sleeping, including during daytime naps. ??? While taking prescription pain medicines, sleeping medicines, or medicines that make you drowsy. ??? Avoid smoking. ??? Keep all follow-up visits as told by your health care provider. This is important. Contact a health care provider if: ??? You keep feeling nauseous or you keep vomiting. ??? You feel light-headed. ??? You are still sleepy or having trouble with balance after 24 hours. ??? You develop a rash. ??? You have a fever. ??? You have redness or swelling around the IV site. Get help right away if: ??? You have trouble breathing. ??? You have new-onset confusion at home. Summary ??? For several hours after your procedure, you may feel tired. You may also be forgetful and have poor judgment. ??? Have a responsible adult stay with you for the time you are told. It is important to have someone help care for you until you are awake and alert. ??? Rest as told. Do not drive or operate machinery. Do not drink alcohol or take sleeping pills. ??? Get help right away if you have trouble breathing, or if you suddenly become confused. This information is not intended to replace advice given to you by your health care provider. Make sure you discuss any questions you have with your health care provider. Document Revised: 07/22/2022 Document Reviewed: 07/19/2020 [employer] Patient Education ?? 2022 [employer]. Follow Up Care 06/24/2023 10:52:26 With:IONA DAVIDSON Address: [address] [place] [id number] Business (1) When:07/21/2023 13:30:00 Surgical operation note * IONA DAVIDSON MD: PERFORM Event Display: Operative Report Authored Date: [id number] * IONA DAVIDSON MD: PERFORM Event Display: Operative Report Authored Date: [id number] Patient Care team information Care Team Related Persons Name: PINEDA MYLES Address: [facility] [address] [id number]
--- NOTE | 2023-09-01 07:30 | CTR_ITS ---
PROCEDURE INFORMATION: Exam: CTA Chest With Contrast Exam date and time: 09/01/2023 8:06 AM Age: 83 years old Clinical indication: Cough and shortness of breath; Prior surgery; Surgery date: 6+ months; Patient HX: HX of breast cancer; Additional info: [place] TECHNIQUE: Imaging protocol: Computed tomographic angiography of the chest with contrast. Exam focused on the arteries. 3D rendering (Not supervised by radiologist): MIP and/or 3D reconstructed images were created by the technologist. Radiation optimization: All CT scans at this facility use at least one of these dose optimization techniques: automated exposure control; mA and/or kV adjustment per patient size (includes targeted exams where dose is matched to clinical indication); or iterative reconstruction. Contrast material: OMNI 350; Contrast volume: 65 ml; Contrast route: INTRAVENOUS (IV); COMPARISON: CR (CHEST, ) 08/31/2023 5:38 PM RADIATION DOSE METRICS: Total DLP (mGy-cm): 308.96 FINDINGS: This study is significantly degraded by motion artifact. Pulmonary arteries: There is no pulmonary embolus detected in the main pulmonary trunk. No pulmonary embolus is detected in the main pulmonary trunk or the main right or left pulmonary arteries no pulmonary embolus is detected in the proximal 2nd or 3rd order branch vessels. Motion artifact limits ability to evaluate for branch vessel pulmonary emboli in both lower lobes and in the right middle lobe and lingula. If there is high clinical suspicion for branch vessel pulmonary emboli, recommend repeating this study when patient more able to cooperate with breath holding or obtaining V/Q scan if it is available at your facility. Aorta: There are atherosclerotic changes involving the aorta and great vessels without focal aortic aneurysm. There is coronary artery calcification. Thyroid: The thyroid gland is mildly diffusely heterogeneous without definite focal. The right lobe is not included in its entirety. 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 There are some secretions in the trachea, is there history of aspiration? There are infiltrates in both lower lobes. These are more consolidated in the left lower lobe than the right. There is associated volume loss in the left lower lobe. There are infiltrates or atelectasis in the posterior aspect of the upper lobes. There is a ground glass nodule in the inferolateral right upper lobe measuring 6 mm on series 7, image 187 Pleural spaces: Unremarkable. No pneumothorax. No pleural effusion. Heart: Unremarkable. No cardiomegaly. No pericardial effusion. Lymph nodes: There is mild mediastinal adenopathy and moderate bilateral hilar adenopathy. There also some calcified mediastinal and hilar lymph nodes. Diaphragm: There is a small hiatal hernia. Liver: There are calcified granulomata in the liver Spleen: The spleen is not enlarged. There are splenic calcified granulomata. There is accessory splenic tissue. Adrenal glands: There is a 1.6 x 1.8 cm left adrenal nodule with low CT density numbers even on this study with contrast on board and most consistent with an adenoma. The right adrenal gland is unremarkable. Bones/joints: There is multilevel degenerative disc disease and spondylosis in the thoracic spine. There is thoracic scoliosis. Patient has undergone previous kyphoplasty for compression fracture at T11. There are mild wedge compressions at T9 and T10 of indeterminate age but favored to likely be old Soft tissues: There are benign macrocalcifications in both breasts. There is an asymmetric irregular nodular density in the right breast which may be an area of previous biopsy however a mass here can not be excluded. If patient has not had a recent mammogram, recommend she be referred for 1. CT/CT angio chest PE protcl [id number] IMPRESSION: 1. This study is significantly degraded by motion artifact which impairs ability to evaluate for branch vessel pulmonary embolus particularly in the lung bases and to a lesser extent in the upper lobes. If there is high clinical suspicion for peripheral pulmonary embolus, recommend consideration for repeating this study when patient more able to cooperate with breath holding or referring patient for V/Q scan if available in your facility. There is no central or proximal branch order pulmonary embolus detected 2. 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 Coronary artery calcification 3. Bilateral lung infiltrates and consolidation as described above. This is most prominently involving the left lower lobe 4. Nodular opacity right upper lobe. Follow-up in 6 months' time recommended 5. . Secretions in the trachea, question aspiration 6. Mediastinal and hilar adenopathy. 7. Other incidental findings as outlined above.
--- NOTE | 2023-09-01 07:35 | PM.PN ---
Subjective Subjective: History and physical reviewed. Laboratory reviewed. Patient reports no pain. Medications: Reviewed: Yes Vitals/I&O/Wt Last Vital Signs Temp 97.9 F 09/01/23 03:58 Pulse 85 09/01/23 03:58 Resp 19 H 09/01/23 03:58 BP 104/68 09/01/23 03:58 Pulse Ox 96 09/01/23 03:58 O2 Del Method Nasal Cannula 09/01/23 03:58 O2 Flow Rate 5 09/01/23 03:58 08/31/23 09/01/23 09/01/23 22:59 06:59 14:59 Intake Total 300 / 300 50 / 50 Output Total 300 / 300 Balance 300 / 300 -300 / 0 50 / 50 Weight last 48 hrs Weight 67.585 kg Weight 67.585 kg Physical Exam Narrative: General exam no distress Neck is supple Cardiovascular regular rate and rhythm, no murmur Lungs bilateral expiratory wheezes Abdomen is soft Extremities no cyanosis clubbing or edema Data 09/01/23 04:05 09/01/23 04:05 A&P Assessment and plan (1) Aspiration pneumonia: Patient presents with aspiration pneumonitis Low-grade temperature, witnessed aspiration resulting in respiratory failure Continue Zosyn Rapid COVID, influenza negative (2) COPD exacerbation: Patient has underlying COPD Presentation consistent with acute COPD exacerbation Budesonide twice daily will be initiated DuoNeb, changed to every 4 hours scheduled Change Solu-Medrol to prednisone (3) Acute respiratory failure with hypoxia: Significant oxygen requirement of 5 L on admission Wean as tolerated. (4) Mental disability: This makes history difficult Plan is to send back to nursing facility when improved (5) Diabetes: Initiate sliding scale insulin Await med rec Qualifiers: Diabetes mellitus type: type 2 Diabetes mellitus retirement insulin use: without retirement use Diabetes mellitus complication status: without complication Qualified Code(s): E11.9 - Type 2 diabetes mellitus without complications Plan Multiple other medical problems as outlined in past medical history Full code currently Lovenox for DVT prophylaxis Attestations Medical Necessity Statement*: Requires continued hospitalization secondary aspiration pneumonitis requiring IV antibiotics, frequent nebs in this patient with increased oxygen requirement and COPD exacerbation. Diagnoses Aspiration pneumonia J69.0 COPD exacerbation J44.1 Acute respiratory failure with hypoxia J96.01 Mental disability F79 Type 2 diabetes mellitus without complication, without long-term current use of insulin E11.9 Diabetes mellitus type: type 2 Diabetes mellitus retirement insulin use: without termite inspector use Diabetes mellitus complication status: without complication Time Spent (min) 25
[2023-09-01] MEDS: iohexol 350 mg/mL 500 mL Btl (per mL) IV (08:21)
[2023-09-01] MEDS: ipratropium-albuterol 3 mL Neb INHALATION ×3 (08:30→21:40)
[2023-09-01] MEDS: budesonide 0.5 mg/2 mL Neb INHALATION ×2 (08:30→21:40)
--- NOTE | 2023-09-01 08:48 | PC.CHAP ---
Pastoral Care Encounter/Spiritual Assessment Type of Contact [] Declined lithograph printer visit [] Patient/Family/Request visit [] Outpatient visit [] Follow-up visit [] Physician referral [] Code/Alert [] Routine visit [] Staff referral [] Actively dying [] Patient sleeping [] Family support [] [] Out of room [] Palliative care [] [x] Receiving care in room [] Pre-surgical visit [] Trauma [] Long length of stay [] ICU visit [] Other: Relational/Emotional Strength [] Patient feels connected with others/family/visitors/staff [] Distress [] Loneliness/isolation [] Abandonment Spirituality of Patient [] Person of [place] [] Attends Episcopalian of their [place] [] Believes in Prayer [] Reads Bible or Yarsanism materials [] There are Spiritual issues to be addressed Molder Interventions [] Prayer [] Active listening [] Non-anxious presence [] Spiritual/emotional support [] Crisis/trauma care [] Spiritual counseling [] Bereavement support [] Provided bereavement packet [] Provided Bible/devotional materials [] Provided toy/stuffed animal, coloring book to patient or family member [] Provided Communion [] Anointing/[place] [] Salvation [] Completed spiritual assessment [] Other: Impact on Illness or Injury [] Angry [] Fearful [] Anxious [] Often cries [] Exhaustion [] Unable to work [] Unable to attend mandaen [] Unable to walk/stand [] Unable to read [] Unable to drive [] Unable to eat/drink [] Unable to sleep [] Unable to be with family [] Patient intubated [] Other: Summary Time spent with patient
[2023-09-01 08:58] LABS: Glucose Point of Care 165 mg/dL (70-110)
--- NOTE | 2023-09-01 09:14 | PC.PHAR ---
Addendum entered by Valery Olivares 09/01/23 09:15: FACILITY IS [facility]. Original Note: PT IS AT [facility]. HER NURSE IS KENJI [phone]. 09/01/23
[2023-09-01] MEDS: OLANZapine 5 mg TABLET PO (09:50)
[2023-09-01] MEDS: memantine 5 mg tablet 10 MG PO ×2 (09:50→18:33)
[2023-09-01] MEDS: predniSONE 20 mg Tablet 40 MG PO (09:51)
[2023-09-01] MEDS: pantoprazole DR 40 mg Tablet PO (09:51)
[2023-09-01] MEDS: sennosides-docusate Tablet 1 TAB PO (09:51)
[2023-09-01 13:04] LABS: Glucose Point of Care 185 mg/dL (70-110)
[2023-09-01] MEDS: isosorbide mononitrate ER 30 mg Tablet 15 MG PO (18:33)
[2023-09-01] MEDS: insulin lispro 100 unit/1 mL SUBCUT (18:34)
[2023-09-01 19:05] LABS: Glucose Point of Care 152 mg/dL (70-110)
[2023-09-01 20:53] LABS: Glucose Point of Care 93 mg/dL (70-110)
[2023-09-02] VITALS (11 sets, daily range): BP systolic 126–146; BP diastolic 67–80; PULSE 70–91; RESP 15–20; TEMP 36.6–37.2; O2SAT 93–97
[2023-09-02] MEDS: ipratropium-albuterol 3 mL Neb INHALATION ×5 (00:42→23:23)
[2023-09-02] MEDS: sodium chloride 0.9% 1,000 ML 75 ML IV ×2 (01:54→15:47)
[2023-09-02] MEDS: piperacillin-tazobactam 3.375 GM in sodium chloride 0.9% (plus) 50 ML IV ×3 (03:51→20:27)
[2023-09-02 05:08] LABS: Basophils % 0.3 %; Eosinophils % 0.3 %; Hematocrit 34.4 % (36-47); Lymphocytes # 2.3 10^3/uL (0.8-4.8); Lymphocytes % 19.9 %; Mean Corpuscular HGB Conc 30.8 g/dL (30-55); Mean Corpuscular Hemoglobin 30.7 pg (27-33); Mean Corpuscular Volume 99.7 fl (85-98); Mean Platelet Volume 11.1 fL (7.4-10.4); Monocytes % 8.7 %; Neutrophils # 8.01 10^3/uL (1.8-7.7); Neutrophils % 70.4 %; Nucleated Red Blood Cells % 0 %; Platelet Count 210 10^3/cmm (157-399); Red Blood Count 3.45 10^6/uL (3.85-5.65); Red Cell Distribution Width 14.9 % (12.1-15.1); White Blood Count 11.38 10^3/uL (3.29-11.43)
[2023-09-02 05:36] LABS: Alanine Aminotransferase 15 U/L (0-33); Albumin Level 3.2 g/dL (3.5-5.2); Alkaline Phosphatase 50 U/L (35-105); Anion Gap 11.7 (5-19); Aspartate Amino Transferase 58 U/L (0-32); Blood Urea Nitrogen 16 mg/dL (8-23); Calcium 9.5 mg/dL (8.5-10.5); Carbon Dioxide 26 mmol/L (22-29); Chloride 108 mmol/L (98-107); Globulin 2.1 g/dL (1.3-4.6); Glucose 88 mg/dL (65-115); Magnesium 1.7 mg/dL (1.7-2.3); Osmolality Calculated 295 mOsm/kg (285-295); Potassium 3.7 mmol/L (3.5-5.1); Sodium 142 mmol/L (136-145); Total Bilirubin 0.3 mg/dL (0.15-1.2); Total Protein 5.3 g/dL (6.6-8.7)
[2023-09-02 06:22] LABS: Glucose Point of Care 90 mg/dL (70-110)
[2023-09-02] MEDS: budesonide 0.5 mg/2 mL Neb INHALATION ×2 (07:52→21:00)
--- NOTE | 2023-09-02 08:44 | P.PN_ITS ---
Documented by User: ASIF Lemons STDLATASHA 09/02/23 10:12 Subjective 2 Subjective: Patient sitting up in chair eating breakfast on 3 L nasal cannula. Ms. Marinelli just received a breathing treatment. she denies pain currently. Medications: Reviewed: Yes Vitals/I&O/Wt Last Vital Signs Temp 98.9 F 09/02/23 07:01 Pulse 90 09/02/23 07:55 Resp 18 09/02/23 07:55 BP 137/75 09/02/23 07:01 Pulse Ox 96 09/02/23 07:55 O2 Del Method Nasal Cannula 09/02/23 07:55 O2 Flow Rate 3 09/02/23 07:55 09/01/23 09/02/23 09/02/23 22:59 06:59 14:59 Intake Total 390 / 1620 1126.25 / 2746.25 50 / 50 Output Total 150 / 300 Balance 240 / 1320 1126.25 / 2446.25 50 / 50 Weight last 48 hrs Weight 158 lb 4 oz Weight 149 lb Weight 149 lb Weight 149 lb Physical Exam 2 Narrative: General exam is a white female, alert, no distress. Neck is supple, no lymphadenopathy, no JVD, full ROM. Cardiovascular regular rate and rhythm, no murmur. Lungs clear to auscultation breath sounds diminished. Abdomen is soft, non-tender. Extremities no cyanosis, clubbing, or edema Data 09/02/23 04:20 09/02/23 04:20 A&P Assessment and plan (1) Aspiration pneumonia: Patient with aspiration pneumonitis Low-grade temperature on 08/31/23, witnessed aspiration resulting in respiratory failure. Continue Zosyn Rapid COVID, influenza negative (2) COPD exacerbation: Patient has underlying COPD Presentation consistent with acute COPD exacerbation [place] Budesonide twice daily Continue DuoNeb, every 4 hours as scheduled Continue prednisone (3) Acute respiratory failure with hypoxia: Significant oxygen requirement currently on 3L NC Wean as tolerated. (4) Mental disability: This makes history difficult Plan is to send back to nursing facility when improved (5) Diabetes: Continue sliding scale insulin Qualifiers: Diabetes mellitus complication status: without complication Diabetes mellitus computer terminal operator insulin use: without penitentiary use Diabetes mellitus type: t e 2 Qualified Code(s): E11.9 - Type 2 diabetes mellitus without complications Plan Multiple other medical problems as outlined in past medical history Full code currently Lovenox for DVT prophylaxis Coding Level of Care Code 32368 Diagnoses Aspiration pneumonia J69.0 COPD exacerbation J44.1 Acute respiratory failure with hypoxia J96.01 Mental disability F79 Type 2 diabetes mellitus without complication, without long-term current use of insulin E11.9 Diabetes mellitus complication status: without complication Diabetes mellitus computer terminal operator insulin use: without penitentiary use Diabetes mellitus type: type 2 Time Spent (min) 25 Documented by User: Serge Calderon MD 09/02/23 10:21 Data 09/02/23 04:20 09/02/23 04:20 A&P Assessment and plan (1) Aspiration pneumonia: (2) COPD exacerbation: (3) Acute respiratory failure with hypoxia: (4) Mental disability: (5) Diabetes: Qualifiers: Diabetes mellitus complication status: without complication Diabetes mellitus computer terminal operator insulin use: without computer terminal operator use Diabetes mellitus type: t ype 2 Qualified Code(s): E11.9 - Type 2 diabetes mellitus without complications Attestations 2 Medical Necessity Statement*: Hospital stay for urologist related to pneumonia, not yet improved Diagnoses Aspiration pneumonia J69.0 COPD exacerbation J44.1 Acute respiratory failure with hypoxia J96.01 Mental disability F79 Type 2 diabetes mellitus without complication, without long-term current use of insulin E11.9 Diabetes mellitus complication status: without complication Diabetes mellitus penitentiary insulin use: without computer terminal operator use Diabetes mellitus type: type 2 Time Spent (min) 25
--- NOTE | 2023-09-02 09:28 | PC.SOCIAL ---
IMM Update Pg. 2 of IMM Updated with guardian over the phone, copy provided at bedside.
[2023-09-02] MEDS: pantoprazole DR 40 mg Tablet PO (09:59)
[2023-09-02] MEDS: PARoxetine 20 mg Tablet PO (10:00)
[2023-09-02] MEDS: sennosides-docusate Tablet 1 TAB PO (10:00)
[2023-09-02] MEDS: predniSONE 20 mg Tablet 40 MG PO (10:00)
[2023-09-02] MEDS: memantine 5 mg tablet 10 MG PO ×2 (10:00→18:02)
[2023-09-02] MEDS: isosorbide mononitrate ER 30 mg Tablet 15 MG PO ×2 (10:00→18:02)
[2023-09-02] MEDS: OLANZapine 5 mg TABLET PO (10:00)
[2023-09-02] MEDS: fenofibrate 48 mg Tablet PO (10:20)
--- NOTE | 2023-09-02 10:31 | PC.CHAP ---
Pastoral Care Encounter/Spiritual Assessment Type of Contact [] Declined box office attendant visit [x] Patient/Family/Request visit [] Outpatient visit [] Follow-up visit [] Physician referral [] Code/Alert [x] Routine visit [] Staff referral [] Actively dying [] Patient sleeping [] Family support [] [] Out of room [] Palliative care [] [] Receiving care in room [] Pre-surgical visit [] Trauma [] Long length of stay [] ICU visit [] Other: Relational/Emotional Strength [] Patient feels connected with others/family/visitors/staff [x] Distress [x] Loneliness/isolation [x] Abandonment Spirituality of Patient [] Person of [place] [] Attends Sabianist of their [place] [] Believes in Prayer [] Reads Bible or Episcopal materials [] There are Spiritual issues to be addressed Jazz Singer Interventions [x] Prayer [] Active listening [] Non-anxious presence [x] Spiritual/emotional support [] Crisis/trauma care [] Spiritual counseling [] Bereavement support [] Provided bereavement packet [] Provided Bible/devotional materials [] Provided toy/stuffed animal, coloring book to patient or family member [] Provided Communion [] Anointing/[place] [] Salvation [] Completed spiritual assessment [] Other: Impact on Illness or Injury [] Angry [] Fearful [] Anxious [] Often cries [] Exhaustion [] Unable to work [] Unable to attend lutheran [] Unable to walk/stand [] Unable to read [] Unable to drive [] Unable to eat/drink [] Unable to sleep [] Unable to be with family [] Patient intubated [] Other: Summary Time spent with patient 15 min
[2023-09-02 11:55] LABS: Glucose Point of Care 136 mg/dL (70-110)
[2023-09-02 17:43] LABS: Glucose Point of Care 229 mg/dL (70-110)
[2023-09-02] MEDS: insulin lispro 100 unit/1 mL SUBCUT ×2 (18:01→22:00)
[2023-09-02 21:03] LABS: Glucose Point of Care 169 mg/dL (70-110)
[2023-09-02] MEDS: lisinopril 5 mg Tablet 10 MG PO (22:00)
[2023-09-02] MEDS: enoxaparin 40 mg/0.4 mL Syringe SUBCUT (22:00)
[2023-09-02] MEDS: acetaminophen 500 mg Tablet PO (22:05)
[2023-09-03] VITALS (15 sets, daily range): BP systolic 112–132; BP diastolic 67–78; PULSE 76–132; RESP 16–32; TEMP 36.7–37; O2SAT 90–97
[2023-09-03] MEDS: ipratropium-albuterol 3 mL Neb INHALATION ×5 (04:37→20:44)
[2023-09-03] MEDS: piperacillin-tazobactam 3.375 GM in sodium chloride 0.9% (plus) 50 ML IV ×3 (04:51→22:40)
[2023-09-03] MEDS: sodium chloride 0.9% 1,000 ML 75 ML IV (04:51)
[2023-09-03 05:11] LABS: Basophils % 0.2 %; Eosinophils % 0.1 %; Hematocrit 35.2 % (36-47); Lymphocytes # 1.8 10^3/uL (0.8-4.8); Lymphocytes % 14.8 %; Mean Corpuscular HGB Conc 31.3 g/dL (30-55); Mean Corpuscular Hemoglobin 30.1 pg (27-33); Mean Corpuscular Volume 96.2 fl (85-98); Mean Platelet Volume 11.5 fL (7.4-10.4); Monocytes # 0.9 10^3/uL (0.2-0.9); Monocytes % 7.5 %; Neutrophils # 9.33 10^3/uL (1.8-7.7); Neutrophils % 76.9 %; Nucleated Red Blood Cells % 0 %; Platelet Count 227 10^3/cmm (157-399); Red Blood Count 3.66 10^6/uL (3.85-5.65); Red Cell Distribution Width 14.6 % (12.1-15.1); White Blood Count 12.12 10^3/uL (3.29-11.43)
[2023-09-03 05:32] LABS: Anion Gap 14.6 (5-19); Blood Urea Nitrogen 15 mg/dL (8-23); Calcium 10.4 mg/dL (8.5-10.5); Carbon Dioxide 25 mmol/L (22-29); Chloride 107 mmol/L (98-107); Glucose 95 mg/dL (65-115); Osmolality Calculated 297 mOsm/kg (285-295); Potassium 3.6 mmol/L (3.5-5.1); Sodium 143 mmol/L (136-145)
[2023-09-03] MEDS: guaiFENesin-dextromethorphan UDC 10 mL 25 ML PO (05:54)
[2023-09-03] MEDS: ALPRAZolam 0.5 mg Tablet PO (06:36)
[2023-09-03 06:47] LABS: Glucose Point of Care 146 mg/dL (70-110)
[2023-09-03] MEDS: budesonide 0.5 mg/2 mL Neb INHALATION ×2 (07:50→20:44)
--- NOTE | 2023-09-03 07:57 | XR_ITS ---
WS: [id number] Portable AP upright chest, 09/03/2023 Clinical Data: resp failure Comparison: Portable chest, 08/31/2023 Findings: Bilateral patchy pulmonary opacities have developed and there is more opacity on the right than the left. There may be small bilateral pleural effusions. The heart is not enlarged. There is no pneumothorax. The aortic arch and descending thoracic aorta show tortuosity. There is vertebroplasty cement in the L1 vertebral body. There is a dextroscoliosis of the thoracic spine. Impression: 1. Bilateral patchy pulmonary opacities consistent with pneumonia and/or pulmonary vascular congestio n. 2. Small bilateral pleural effusions. 3. Atherosclerosis.
[2023-09-03 08:34] LABS: NT Pro B Type Natriuretic Pept 7422 pg/mL (0-450)
--- NOTE | 2023-09-03 09:01 | USCV_ITS ---
Kristi Marinelli Age: 83 Gender: F : 1940 Exam Date: 09/03/2023 09:58 Ordering Phys: Serge Calderon MD Technologist: Raffi Lin Exam Location: [facility] [place] Indication: chf BP: 130 / 74 HR: 104 Rhythm: Sinus Technical Quality: Adequate MEASUREMENTS (Male / Female) Normal Values 2D ECHO LV Diastolic Diameter PLAX 3.5 cm 4.2 - 5.9 / 3.9 - 5.3 cm LV Systolic Diameter PLAX 2.0 cm IVS Diastolic Thickness 0.9 cm 0.6 - 1.0 / 0.6 - 0.9 cm IVS Systolic Thickness 1.6 cm LVPW Diastolic Thickness 1.0 cm 0.6 - 1.0 / 0.6 - 0.9 cm LVPW Systolic Thickness 1.3 cm LVOT Diameter 2.1 cm LV Ejection Fraction 2D Teich 74.0 % LV Ejection Fraction MOD 2C 69.2 % LV Ejection Fraction 2C AL 69.4 % LA Diameter 4.4 cm IVC Diameter 1.8 cm M-MODE Aortic Annulus Diameter 3.8 cm LA Ao Ratio MM 1.2 MV E Point Septal Separation 1.6 cm DOPPLER AV Peak Velocity 137.0 cm/s LVOT Peak Velocity 101.0 cm/s AV Area Cont Eq vti 2.4 cm squared AV Area Cont Eq pk 2.6 cm squared MV Area PHT 5.0 cm squared Mitral E to A Ratio 0.8 MV E' Velocity 51.0 cm/s Mitral E to MV E' Ratio 12.2 Mitral E to LV E' Lateral Ratio 8.1 Mitral E to LV E' Septal Ratio 25.9 TR Peak Velocity 225.7 cm/s TR Peak Gradient 20.4 mmHg TV Peak E Velocity 98.0 cm/s Right Atrial Pressure 3.0 mmHg Pulmonary Artery Systolic Pressu 23.4 mmHg FINDINGS Left Ventricle Normal left ventricular size and systolic function, EF 40- 45 % Mild left ventricular hypertrophy. Diffuse hypokinesia of the mid and apical septum, anteroseptum and inferolateral wall segment Right Ventricle The right ventricle is normal in size and function. Right Atrium The right atrium is normal in size. Left Atrium The left atrium is normal in size. Mitral Valve Mild-moderate mitral valve regurgitation. Aortic Valve No gross abnormalities were noted Tricuspid Valve Trace tricuspid valve regurgitation. Estimated pulmonary artery peak systolic pressure 23 mmHg Pulmonic Valve No gross abnormalities noted no. Pericardium Normal pericardium without effusion. Aorta Normal ascending aorta dimension. IVC The inferior vena cava appears normal. CONCLUSIONS Normal left ventricular size and systolic function, EF 40- 45 % (visual). Mild left ventricular hypertrophy. Diffuse hypokinesia of the mid and apical septum, anteroseptum and inferolateral wall segment. Trace tricuspid valve regurgitation. Estimated pulmonary artery peak systolic pressure 23 mmHg. There is no pericardial effusion. There are no intracardiac masses. Compared to the study from 04/21/2018, there is worsening of the LV systolic function Dr Amina Velasquez MD [facility] (Electronically Signed) Final Date: 03 September 2023 13:00 S
[2023-09-03] MEDS: OLANZapine 5 mg TABLET PO (09:40)
[2023-09-03] MEDS: sennosides-docusate Tablet 1 TAB PO (09:40)
[2023-09-03] MEDS: PARoxetine 20 mg Tablet PO (09:40)
[2023-09-03] MEDS: memantine 5 mg tablet 10 MG PO ×2 (09:40→17:16)
[2023-09-03] MEDS: fenofibrate 48 mg Tablet PO (09:40)
[2023-09-03] MEDS: pantoprazole DR 40 mg Tablet PO (09:40)
[2023-09-03] MEDS: FUROsemide 10 mg/mL SDV 10mL 60 MG IVP (09:40)
[2023-09-03] MEDS: isosorbide mononitrate ER 30 mg Tablet 15 MG PO ×2 (09:41→17:16)
[2023-09-03] MEDS: insulin lispro 100 unit/1 mL SUBCUT ×2 (09:41→17:16)
--- NOTE | 2023-09-03 09:46 | PM.PN ---
Documented by User: ASIF Lemons STDLATASHA 09/03/23 10:01 Subjective Subjective: Patient sitting up in chair receiving breathing treatment. Requiring more oxygen this morning, on 7L oxymask. Medications: Reviewed: Yes Vitals/I&O/Wt Last Vital Signs Temp 98.0 F 09/03/23 08:50 Pulse 103 H 09/03/23 08:50 Resp 20 H 09/03/23 08:50 BP 132/75 09/03/23 08:50 Pulse Ox 90 09/03/23 08:50 O2 Del Method Oxymask 09/03/23 08:50 O2 Flow Rate 7 09/03/23 08:04 09/02/23 09/03/23 09/03/23 22:59 06:59 14:59 Intake Total 1730 / 2260 1230 / 3490 298.5 / 298.5 Output Total 150 / 350 200 / 550 Balance 1580 / 1910 1030 / 2940 298.5 / 298.5 Weight last 48 hrs Weight 158 lb 4 oz Weight 158 lb 4 oz Physical Exam Narrative: General exam is a white female, alert, no distress. Neck is supple, no lymphadenopathy, no JVD, full ROM. Cardiovascular regular rate and rhythm, no murmur. Lungs coarse and crackles to auscultation. Abdomen is soft, non-tender. Extremities no cyanosis, clubbing, or edema Data 09/03/23 04:17 09/03/23 04:17 Micro: Microbiology 08/31/23 19:15 Blood Culture - Preliminary Blood 08/31/23 19:18 Blood Culture - Preliminary Blood A&P Assessment and plan (1) Aspiration pneumonia: Patient with aspiration pneumonitis. Low-grade temperature on 08/31/23, witnessed aspiration resulting in respiratory failure. Continue Zosyn Rapid COVID, influenza negative (2) COPD exacerbation: Patient has underlying COPD Presentation consistent with acute COPD exacerbation [place] Budesonide twice daily Continue DuoNeb, every 4 hours as scheduled Continue prednisone (3) Acute respiratory failure with hypoxia: Significant oxygen requirement increase overnight from 3L NC currently on 7L oxymask. Chest X-ray 09/03/23: Impression: 1. Bilateral patchy pulmonary opacities consistent with pneumonia and/or pulmonary vascular congestion. 2. Small bilateral pleural effusions. 3. Atherosclerosis. BNP 7422 Lasix IVP 60mg once ordered. Echocardigram ordered. Wean as tolerated. (4) Mental disability: This makes history difficult Plan is to send back to nursing facility when improved (5) Diabetes: Continue sliding scale insulin Qualifiers: Diabetes mellitus complication status: without complication Diabetes mellitus snf insulin use: without ocean transportation intermediary use Diabetes mellitus type: type 2 Qualified Code(s): E11.9 - Type 2 diabetes mellitus without complications Plan Multiple other medical problems as outlined in past medical history Full code currently Lovenox for DVT prophylaxis Coding Level of Care Code 82607 Diagnoses Aspiration pneumonia J69.0 COPD exacerbation J44.1 Acute respiratory failure with hypoxia J96.01 Mental disability F79 Type 2 diabetes mellitus without complication, without long-term current use of insulin E11.9 Diabetes mellitus complication status: without complication Diabetes mellitus ocean transportation intermediary insulin use: without ocean transportation intermediary use Diabetes mellitus type: type 2 Time Spent (min) 29 Documented by User: Serge Calderon MD 09/03/23 10:04 Subjective Subjective: Patient sitting up in chair receiving breathing treatment. Requiring more oxygen this morning, on 7L oxymask. Apparently decompensated this morning after 4 AM when getting up to go to the bathroom. Required 100% nonrebreather. IV fluids stopped at that time. Data 09/03/23 04:17 09/03/23 04:17 A&P Assessment and plan (1) Aspiration pneumonia: Patient with aspiration pneumonitis. Low-grade temperature on 08/31/23, witnessed aspiration resulting in respiratory failure. Continue Zosyn Rapid COVID, influenza negative Appreciate speech therapy consultation. However, holding p.o. intake currently while addressing respiratory issues from likely fluid overload. (2) COPD exacerbation: (3) Acute respiratory failure with hypoxia: Significant oxygen requirement increase overnight from 3L NC currently on 7L oxymask. This is likely secondary to CHF, acute diastolic heart failure. Fluids stopped. Lasix 60 mg IV x 1 given. Will reassess this afternoon. Wean oxygen as tolerated. Chest x-ray consistent with acute congestive heart failure, BNP elevated. Obtain CBC and BMP in the morning along with magnesium. Chest X-ray 09/03/23: Impression: 1. Bilateral patchy pulmonary opacities consistent with pneumonia and/or pulmonary vascular congestion. 2. Small bilateral pleural effusions. 3. Atherosclerosis. BNP 7422 Lasix IVP 60mg once ordered. Echocardigram ordered. Wean as tolerated. (4) Mental disability: (5) Diabetes: Qualifiers: Diabetes mellitus complication status: without complication Diabetes mellitus snf insulin use: without ocean transportation intermediary use Diabetes mellitus type: type 2 Qualified Code(s): E11.9 - Type 2 diabetes mellitus without complications Attestations Medical Necessity Statement*: Hospitalization for treatment of acute congestive heart failure, suspect diastolic Diagnoses Aspiration pneumonia J69.0 COPD exacerbation J44.1 Acute respiratory failure with hypoxia J96.01 Mental disability F79 Type 2 diabetes mellitus without complication, without long-term current use of insulin E11.9 Diabetes mellitus complication status: without complication Diabetes mellitus ocean transportation intermediary insulin use: without snf use Diabetes mellitus type: type 2 Time Spent (min) 29
[2023-09-03] MEDS: predniSONE 20 mg Tablet 40 MG PO (09:49)
[2023-09-03 11:21] LABS: Glucose Point of Care 106 mg/dL (70-110)
--- NOTE | 2023-09-03 15:08 | ECG_ITS ---
[facility] Test Date: 2023-09-03 Pat Name: Kristi Marinelli Department: Room: 251 Gender: Female Land Surveying Survey Worker: : [id number] Requested By: Serge Bolton Order Number: [id number] Luh MD: Devan Escobedo M.D. Measurements Intervals Aristes Rate: 94 P: 74 WV: 176 QRS: 20 QRSD: 81 T: 66 QT: 345 QTc: 433 Interpretive Statements SINUS RHYTHM NONSPECIFIC T-WAVE ABNORMALITY Compared to ECG 08/31/2023 17:27:13 T-wave abnormality now present Sinus tachycardia no longer present First degree AV block no longer present Myocardial infarct finding no longer present Electronically Signed On 09-03-2023 18:34:44 CRA OFFICER by Devan Escobedo M.D. [id number]
[2023-09-03] MEDS: aspirin 81 mg EC Tablet PO (15:48)
[2023-09-03 16:26] LABS: Glucose Point of Care 182 mg/dL (70-110)
[2023-09-03 20:56] LABS: Glucose Point of Care 146 mg/dL (70-110)
[2023-09-03] MEDS: FUROsemide 10 mg/mL SDV 4mL 40 MG IVP (22:39)
[2023-09-03] MEDS: lisinopril 5 mg Tablet 10 MG PO (22:39)
[2023-09-03] MEDS: enoxaparin 40 mg/0.4 mL Syringe SUBCUT (22:39)
[2023-09-03] MEDS: metoprolol tartrate 25 mg Tablet 12.5 MG PO (22:39)
[2023-09-03] MEDS: atorvastatin 40 mg Tablet PO (22:39)
[2023-09-04] VITALS (13 sets, daily range): BP systolic 106–148; BP diastolic 55–81; PULSE 61–98; RESP 16–20; TEMP 36.4–37.4; O2SAT 91–95
[2023-09-04] MEDS: ipratropium-albuterol 3 mL Neb INHALATION ×6 (00:18→21:19)
[2023-09-04] MEDS: piperacillin-tazobactam 3.375 GM in sodium chloride 0.9% (plus) 50 ML IV ×3 (05:32→22:26)
--- NOTE | 2023-09-04 05:32 | PC.NURSE ---
Unable to measure urine output due to patient being incontinent.
[2023-09-04 05:33] LABS: Basophils % 0.1 %; Hematocrit 35.5 % (36-47); Lymphocytes # 1.4 10^3/uL (0.8-4.8); Lymphocytes % 17.2 %; Mean Corpuscular HGB Conc 31.5 g/dL (30-55); Mean Corpuscular Hemoglobin 30.2 pg (27-33); Mean Corpuscular Volume 95.7 fl (85-98); Mean Platelet Volume 11.5 fL (7.4-10.4); Monocytes # 0.9 10^3/uL (0.2-0.9); Monocytes % 11.3 %; Neutrophils # 5.87 10^3/uL (1.8-7.7); Neutrophils % 70.9 %; Nucleated Red Blood Cells % 0 %; Platelet Count 222 10^3/cmm (157-399); Red Blood Count 3.71 10^6/uL (3.85-5.65); Red Cell Distribution Width 14.3 % (12.1-15.1); White Blood Count 8.29 10^3/uL (3.29-11.43)
[2023-09-04 06:02] LABS: Alanine Aminotransferase 18 U/L (0-33); Albumin Level 3.3 g/dL (3.5-5.2); Alkaline Phosphatase 52 U/L (35-105); Anion Gap 13.1 (5-19); Aspartate Amino Transferase 35 U/L (0-32); Blood Urea Nitrogen 18 mg/dL (8-23); Calcium 10.5 mg/dL (8.5-10.5); Carbon Dioxide 31 mmol/L (22-29); Chloride 103 mmol/L (98-107); Globulin 3.1 g/dL (1.3-4.6); Glucose 106 mg/dL (65-115); Magnesium 1.6 mg/dL (1.7-2.3); Osmolality Calculated 300 mOsm/kg (285-295); Potassium 3.1 mmol/L (3.5-5.1); Sodium 144 mmol/L (136-145); Total Bilirubin 0.4 mg/dL (0.15-1.2); Total Protein 6.4 g/dL (6.6-8.7)
[2023-09-04 06:42] LABS: Glucose Point of Care 98 mg/dL (70-110)
[2023-09-04] MEDS: budesonide 0.5 mg/2 mL Neb INHALATION ×2 (07:23→21:19)
[2023-09-04] MEDS: potassium chloride premix 100 ML 25 MEQ IV (07:56)
[2023-09-04] MEDS: magnesium sulfate premix 2 GM/50 ML PIGGYBACK IV (07:56)
[2023-09-04] MEDS: potassium chloride ER 20 mEq Tablet 40 MEQ PO ×2 (07:57→16:00)
[2023-09-04] MEDS: FUROsemide 10 mg/mL SDV 4mL 40 MG IVP ×2 (07:57→17:43)
[2023-09-04] MEDS: isosorbide mononitrate ER 30 mg Tablet 15 MG PO ×2 (07:57→17:39)
[2023-09-04] MEDS: memantine 5 mg tablet 10 MG PO ×2 (07:58→17:39)
[2023-09-04] MEDS: pantoprazole DR 40 mg Tablet PO (07:58)
[2023-09-04] MEDS: fenofibrate 48 mg Tablet PO (07:58)
[2023-09-04] MEDS: predniSONE 20 mg Tablet 40 MG PO (07:58)
[2023-09-04] MEDS: OLANZapine 5 mg TABLET PO (07:58)
[2023-09-04] MEDS: PARoxetine 20 mg Tablet PO (07:58)
[2023-09-04] MEDS: metoprolol tartrate 25 mg Tablet 12.5 MG PO ×2 (07:58→20:30)
[2023-09-04] MEDS: aspirin 81 mg EC Tablet PO (07:59)
--- NOTE | 2023-09-04 08:13 | P.PN_ITS ---
Documented by User: abhi Avery 09/04/23 08:23 Subjective 2 Subjective: Patient was evaluated this morning while lying in bed on 3L/NC. 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 No other complaints at this time. Medications: Reviewed: Yes Vitals/I&O/Wt Last Vital Signs Temp 98.9 F 09/04/23 04:38 Pulse 63 09/04/23 07:24 Resp 18 09/04/23 07:24 BP 121/72 09/04/23 04:38 Pulse Ox 93 09/04/23 07:24 O2 Del Method Nasal Cannula 09/04/23 07:24 O2 Flow Rate 3 09/04/23 07:24 09/03/23 09/04/23 09/04/23 22:59 06:59 14:59 Intake Total 410 / 708.5 110 / 818.5 Balance 410 / 708.5 110 / 818.5 Weight last 48 hrs Weight 71.781 kg Weight 71.781 kg Physical Exam 2 Narrative: General exam is a white female, alert, no distress. Neck is supple, no lymphadenopathy, no JVD, full ROM. Cardiovascular regular rate and rhythm, no murmur. Lungs diminished course to auscultation Abdomen is soft, non-tender. Extremities no cyanosis, clubbing, or edema Data 09/04/23 04:12 09/04/23 04:12 Other Labs: Potassium 3.1, magnesium 1.6, AST 35 A&P Assessment and plan (1) Aspiration pneumonia: Patient with aspiration pneumonitis. Continue Zosyn Rapid COVID, influenza negative Speech therapy consultation. Recommendations appreciated. Patient was advanced to clear liquid diet and tolerating well. We will advance as tolerated throughout the day. (2) COPD exacerbation: Patient has underlying COPD Presentation consistent with acute COPD exacerbation Continue Budesonide twice daily Continue DuoNeb, every 4 hours as scheduled Continue prednisone (3) Acute respiratory failure with hypoxia: Consistent for #1 and #2. Patient currently requiring 3L/NC at this time. Continue to hold IV fluids. Will decrease her Lasix to 40 mg every 12H. Respiratory protocol. Wean as tolerated. Noted to have hypokalemia and hypomagnesia. Will replace today per IV. (4) Mental disability: Chronic in nature. Plan is to return to SNF once stabilized. (5) Diabetes: Continue sliding scale insulin Accu-Cheks ACHS. Qualifiers: Diabetes mellitus complication status: without complication Diabetes mellitus intermodal owner operator truck driver insulin use: without intermodal owner operator truck driver use Diabetes mellitus type: t ype 2 Qualified Code(s): E11.9 - Type 2 diabetes mellitus without complications (6) Acute systolic heart failure: Plan Plan as stated above. Patient received potassium chloride per IV x 1 today for hypokalemia. Patient will receive 2 g of magnesium sulfate for hypomagnesia. Multiple other medical problems as outlined in past medical history Full code currently Lovenox for DVT prophylaxis Coding Level of Care Code 73616 Diagnoses Aspiration pneumonia J69.0 COPD exacerbation J44.1 Acute respiratory failure with hypoxia J96.01 Mental disability F79 Type 2 diabetes mellitus without complication, without long-term current use of insulin E11.9 Diabetes mellitus complication status: without complication Diabetes mellitus shelter insulin use: without shelter use Diabetes mellitus type: type 2 Acute systolic heart failure I50.21 Time Spent (min) 24 Documented by User: Serge Calderon MD 09/04/23 08:42 Data 09/04/23 04:12 09/04/23 04:12 A&P Assessment and plan (1) Aspiration pneumonia: Patient with aspiration pneumonitis. Continue Zosyn Rapid COVID, influenza negative Speech therapy consultation. Recommendations appreciated. Patient was advanced to clear liquid diet and tolerating well. We will advance to pur?ed with thickened liquids (2) COPD exacerbation: (3) Acute respiratory failure with hypoxia: (4) Mental disability: (5) Diabetes: Qualifiers: Diabetes mellitus complication status: without complication Diabetes mellitus shelter insulin use: without shelter use Diabetes mellitus type: t ype 2 Qualified Code(s): E11.9 - Type 2 diabetes mellitus without complications (6) Acute systolic heart failure: Patient with acute systolic heart failure, diagnosed on this hospital stay. EF approximately 40% on echo. Lasix 40 mg IV every 12 hours started. Slow improvement. Lasix is renal toxic medication, BMP and CBC will be done daily. She will continue her JUJU inhibitor Low-dose beta-kev was placed 12.5 mg twice daily Aspirin was added. Could consider nuclear stress test as an outpatient. I believe she had one in 2020 that was negative at that time. EF has decreased from baseline, but may have happenned anytime since 2019 Attestations 2 Medical Necessity Statement*: Needs continued hospitalization for further diuresis secondary to acute systolic heart failure Diagnoses Aspiration pneumonia J69.0 COPD exacerbation J44.1 Acute respiratory failure with hypoxia J96.01 Mental disability F79 Type 2 diabetes mellitus without complication, without long-term current use of insulin E11.9 Diabetes mellitus complication status: without complication Diabetes mellitus shelter insulin use: without intermodal owner operator truck driver use Diabetes mellitus type: type 2 Acute systolic heart failure I50.21 Time Spent (min) 24
--- NOTE | 2023-09-04 09:17 | PC.SOCIAL ---
IMM Update Pg. of IMM updated and reviewed with patient who verbalized understanding. Copy provided.
[2023-09-04 11:03] LABS: Glucose Point of Care 164 mg/dL (70-110)
[2023-09-04] MEDS: insulin lispro 100 unit/1 mL SUBCUT ×2 (12:21→17:39)
[2023-09-04 16:58] LABS: Glucose Point of Care 192 mg/dL (70-110)
[2023-09-04] MEDS: atorvastatin 40 mg Tablet PO (20:30)
[2023-09-04 20:52] LABS: Glucose Point of Care 139 mg/dL (70-110)
[2023-09-04] MEDS: lisinopril 5 mg Tablet 10 MG PO (22:26)
[2023-09-05] VITALS (13 sets, daily range): BP systolic 115–151; BP diastolic 54–81; PULSE 61–74; RESP 15–18; TEMP 36.3–36.9; O2SAT 90–94; BMI 26.4
[2023-09-05] MEDS: ipratropium-albuterol 3 mL Neb INHALATION ×6 (00:20→20:48)
[2023-09-05 05:36] LABS: Basophils % 0.3 %; Eosinophils % 0.3 %; Lymphocytes # 2.6 10^3/uL (0.8-4.8); Lymphocytes % 29.9 %; Mean Corpuscular HGB Conc 32.4 g/dL (30-55); Mean Corpuscular Hemoglobin 30.5 pg (27-33); Mean Corpuscular Volume 94.2 fl (85-98); Mean Platelet Volume 11.3 fL (7.4-10.4); Neutrophils # 4.92 10^3/uL (1.8-7.7); Neutrophils % 56.8 %; Nucleated Red Blood Cells % 0 %; Platelet Count 231 10^3/cmm (157-399); Red Blood Count 3.61 10^6/uL (3.85-5.65); Red Cell Distribution Width 14.4 % (12.1-15.1); White Blood Count 8.67 10^3/uL (3.29-11.43)
[2023-09-05] MEDS: piperacillin-tazobactam 3.375 GM in sodium chloride 0.9% (plus) 50 ML IV ×3 (05:50→22:20)
[2023-09-05 06:09] LABS: Anion Gap 15.5 (5-19); Blood Urea Nitrogen 23 mg/dL (8-23); Calcium 10.3 mg/dL (8.5-10.5); Carbon Dioxide 28 mmol/L (22-29); Chloride 106 mmol/L (98-107); Glucose 100 mg/dL (65-115); Magnesium 1.8 mg/dL (1.7-2.3); Osmolality Calculated 306 mOsm/kg (285-295); Potassium 3.5 mmol/L (3.5-5.1); Sodium 146 mmol/L (136-145)
[2023-09-05 06:51] LABS: Glucose Point of Care 92 mg/dL (70-110)
[2023-09-05] MEDS: budesonide 0.5 mg/2 mL Neb INHALATION ×2 (08:11→20:48)
[2023-09-05] MEDS: isosorbide mononitrate ER 30 mg Tablet 15 MG PO ×2 (08:41→17:44)
[2023-09-05] MEDS: fenofibrate 48 mg Tablet PO (08:41)
[2023-09-05] MEDS: PARoxetine 20 mg Tablet PO (08:41)
[2023-09-05] MEDS: metoprolol tartrate 25 mg Tablet 12.5 MG PO ×2 (08:41→22:19)
[2023-09-05] MEDS: aspirin 81 mg EC Tablet PO (08:42)
[2023-09-05] MEDS: memantine 5 mg tablet 10 MG PO ×2 (08:42→17:44)
[2023-09-05] MEDS: OLANZapine 5 mg TABLET PO (08:42)
[2023-09-05] MEDS: FUROsemide 10 mg/mL SDV 4mL 40 MG IVP ×2 (08:42→18:44)
[2023-09-05] MEDS: pantoprazole DR 40 mg Tablet PO (08:42)
[2023-09-05] MEDS: predniSONE 20 mg Tablet 40 MG PO (08:42)
[2023-09-05 11:46] LABS: Glucose Point of Care 207 mg/dL (70-110)
[2023-09-05] MEDS: insulin lispro 100 unit/1 mL SUBCUT ×3 (11:59→22:18)
--- NOTE | 2023-09-05 13:28 | P.PN_ITS ---
Subjective 2 Subjective: Seen this morning. No acute events overnight. She feels well. Denies shortness of breath. Vitals/I&O/Wt Last Vital Signs Temp 97.4 F L 09/05/23 03:19 Pulse 67 09/05/23 11:32 Resp 16 09/05/23 11:32 BP 115/54 09/05/23 11:12 Pulse Ox 94 09/05/23 11:32 O2 Del Method Room Air 09/05/23 11:32 O2 Flow Rate 2 09/04/23 15:35 09/04/23 09/05/23 09/05/23 22:59 06:59 14:59 Intake Total 290 / 1490 50 / 1540 410 / 410 Balance 290 / 1490 50 / 1540 410 / 410 Weight last 48 hrs Weight 68.674 kg Weight 71.781 kg Physical Exam 2 Narrative: General exam is a white female, alert, no distress., Slightly confused today. Neck is supple, no lymphadenopathy, no JVD, full ROM. Cardiovascular regular rate and rhythm, no murmur. Lungs diminished course to auscultation Abdomen is soft, non-tender. Extremities no cyanosis, clubbing, or edema Data 09/05/23 04:17 09/05/23 04:17 A&P Assessment and plan (1) Aspiration pneumonia: Patient with aspiration pneumonitis. Continue Zosyn Rapid COVID, influenza negative Speech therapy consultation. Recommendations appreciated. Patient was advanced to clear liquid diet and tolerating well. We will advance to pur?ed with thickened liquids (2) COPD exacerbation: Patient has underlying COPD Presentation consistent with acute COPD exacerbation Continue Budesonide twice daily Continue DuoNeb, every 4 hours as scheduled Continue prednisone (3) Acute respiratory failure with hypoxia: Consistent for #1 and #2. Patient currently requiring 3L/NC at this time. Continue to hold IV fluids. Will decrease her Lasix to 40 mg every 12H. Respiratory protocol. Wean as tolerated. Hypokalemia hypomagnesemia resolved (4) Mental disability: Chronic in nature. Plan is to return to SNF once stabilized. (5) Diabetes: Continue sliding scale insulin Accu-Cheks ACHS. Qualifiers: Diabetes mellitus type: type 2 Diabetes mellitus medical terminologist insulin use: without medical terminologist use Diabetes mellitus complication status: without complication Qualified Code(s): E11.9 - Type 2 diabetes mellitus without complications (6) Acute systolic heart failure: Patient with acute systolic heart failure, diagnosed on this hospital stay. EF approximately 40% on echo. Lasix 40 mg IV every 12 hours started. Slow improvement. Lasix is renal toxic medication, BMP and CBC will be done daily. She will continue her JUJU inhibitor Low-dose beta-kev was placed 12.5 mg twice daily Aspirin was added. Could consider nuclear stress test as an outpatient. I believe she had one in 2019 that was negative at that time. EF has decreased from baseline, but may have happenned anytime since 2019. Patient denies any chest pain or shortness of breath today. Plan Plan as stated above. Multiple other medical problems as outlined in past medical history Full code currently Lovenox for DVT prophylaxis Attestations 2 Medical Necessity Statement*: Needs continued hospitalization for further diuresis secondary to acute systolic heart failure Diagnoses Aspiration pneumonia J69.0 COPD exacerbation J44.1 Acute respiratory failure with hypoxia J96.01 Mental disability F79 Type 2 diabetes mellitus without complication, without long-term current use of insulin E11.9 Diabetes mellitus type: type 2 Diabetes mellitus medical terminologist insulin use: without medical terminologist use Diabetes mellitus complication status: without complication Acute systolic heart failure I50.21
[2023-09-05 17:16] LABS: Glucose Point of Care 161 mg/dL (70-110)
--- NOTE | 2023-09-05 21:27 | PC.NURSE ---
Blood glucose checked by nurse, blood glucose read 200, glucometer docked but not imputing into [employer].
[2023-09-05 21:28] LABS: Glucose Point of Care 200 mg/dL (70-110)
[2023-09-05] MEDS: atorvastatin 40 mg Tablet PO (22:16)
[2023-09-05] MEDS: enoxaparin 40 mg/0.4 mL Syringe SUBCUT (22:20)
[2023-09-05] MEDS: lisinopril 5 mg Tablet 10 MG PO (22:20)
[2023-09-06] VITALS (13 sets, daily range): BP systolic 134–161; BP diastolic 73–89; PULSE 64–82; RESP 16–20; TEMP 36.2–36.9; O2SAT 90–94; BMI 25.4
[2023-09-06] MEDS: ipratropium-albuterol 3 mL Neb INHALATION ×3 (00:52→20:26)
[2023-09-06 05:06] LABS: Basophils % 0.4 %; Eosinophils # 0.1 10^3/uL (0.0-0.8); Eosinophils % 0.5 %; Lymphocytes # 2.6 10^3/uL (0.8-4.8); Lymphocytes % 27.1 %; Mean Corpuscular HGB Conc 32.4 g/dL (30-55); Mean Corpuscular Hemoglobin 30.2 pg (27-33); Mean Platelet Volume 11.4 fL (7.4-10.4); Monocytes % 10.6 %; Neutrophils # 5.86 10^3/uL (1.8-7.7); Neutrophils % 60.3 %; Nucleated Red Blood Cells % 0 %; Platelet Count 281 10^3/cmm (157-399); Red Blood Count 3.98 10^6/uL (3.85-5.65); Red Cell Distribution Width 14.2 % (12.1-15.1); White Blood Count 9.73 10^3/uL (3.29-11.43)
[2023-09-06 05:30] LABS: Alanine Aminotransferase 18 U/L (0-33); Albumin Level 3.7 g/dL (3.5-5.2); Alkaline Phosphatase 55 U/L (35-105); Aspartate Amino Transferase 23 U/L (0-32); Blood Urea Nitrogen 34 mg/dL (8-23); Carbon Dioxide 30 mmol/L (22-29); Chloride 101 mmol/L (98-107); Globulin 3.4 g/dL (1.3-4.6); Glucose 116 mg/dL (65-115); Osmolality Calculated 311 mOsm/kg (285-295); Sodium 146 mmol/L (136-145); Total Bilirubin 0.4 mg/dL (0.15-1.2); Total Protein 7.1 g/dL (6.6-8.7)
[2023-09-06] MEDS: piperacillin-tazobactam 3.375 GM in sodium chloride 0.9% (plus) 50 ML IV ×3 (05:37→22:18)
[2023-09-06] MEDS: FUROsemide 10 mg/mL SDV 4mL 40 MG IVP ×2 (06:26→21:05)
[2023-09-06 06:49] LABS: Glucose Point of Care 129 mg/dL (70-110)
[2023-09-06] MEDS: budesonide 0.5 mg/2 mL Neb INHALATION ×2 (08:01→20:26)
[2023-09-06] MEDS: OLANZapine 5 mg TABLET PO (09:22)
[2023-09-06] MEDS: PARoxetine 20 mg Tablet PO (09:22)
[2023-09-06] MEDS: predniSONE 20 mg Tablet 40 MG PO (09:22)
[2023-09-06] MEDS: aspirin 81 mg EC Tablet PO (09:22)
[2023-09-06] MEDS: isosorbide mononitrate ER 30 mg Tablet 15 MG PO ×2 (09:22→17:13)
[2023-09-06] MEDS: fenofibrate 48 mg Tablet PO (09:22)
[2023-09-06] MEDS: memantine 5 mg tablet 10 MG PO ×2 (09:22→17:12)
[2023-09-06] MEDS: pantoprazole DR 40 mg Tablet PO (09:23)
[2023-09-06] MEDS: metoprolol tartrate 25 mg Tablet 12.5 MG PO ×2 (09:24→21:08)
[2023-09-06 11:11] LABS: Glucose Point of Care 209 mg/dL (70-110)
[2023-09-06 11:23] LABS: Glucose Point of Care 213 mg/dL (70-110)
[2023-09-06] MEDS: insulin lispro 100 unit/1 mL SUBCUT ×3 (11:41→21:09)
--- NOTE | 2023-09-06 15:39 | PM.DCS ---
Discharge Providers Date of Admission: 08/31/23 22:13 Date of Discharge: September 06, 2023 Attending Provider at Admission: Kalyn Lamas MD Attending Provider at Discharge: Virginia Gonzales MD Primary Care Provider: ARIAN Krishnamurthy Diagnoses at Discharge Discharge Diagnosis (1) Aspiration pneumonia: Status: Acute (2) COPD exacerbation: Status: Acute (3) Acute respiratory failure with hypoxia: Status: Acute (4) Mental disability: Status: Chronic (5) Diabetes: Status: Chronic Qualifiers: Diabetes mellitus complication status: without complication Diabetes mellitus terminologist insulin use: without mcfp use Diabetes mellitus type: type 2 Qualified Code(s): E11.9 - Type 2 diabetes mellitus without complications (6) Acute systolic heart failure: Status: Acute Reason for Visit Reason for Visit: [facility] Hospital Course Hospital Course 83-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 She was placed on Zosyn during hospital stay. She did have decompensation in hospital secondary to acute systolic heart failure. EF found to be around 45%. She was started on medical management for that. She was diuresed. EF and year 1999 was normal. Patient does not complain of any chest pain or shortness of breath. EKG did not show any concerning changes. I did discuss with cardiology over the phone and reviewed the echo results. Since patient is not complaining of any symptoms we will manage her medically at this time. We will add low-dose beta-kev Toprol 12.5 daily and aspirin 81 daily. She is on room air at this time she is to follow-up with cardiology as an outpatient at which point they will decide to further pursue with a stress test or continue to medically manage the patient at this time. She is asymptomatic today and feeling well. We will discharge patient back to shelter in stable condition. Physical Exam Narrative: General exam is a white female, alert, no distress., Neck is supple, no lymphadenopathy, no JVD, full ROM. Cardiovascular regular rate and rhythm, no murmur. Lungs diminished course to auscultation Abdomen is soft, non-tender. Extremities no cyanosis, clubbing, or edema Discharge Data Studies Completed and Pending Completed Studies During Hospitalization Category Date Time Status CT head wo con* [id number] Stat Cat Scan 08/31/23 20:03 Completed CTA PE [CT angio chest PE protcl 87330] Routine Cat Scan 09/01/23 07:30 Completed CTA head neck [CT angio headneck* [id number]/85330] Stat Cat Scan 08/31/23 20:03 Completed Modified barium swallow [FL barium swallow modifd [id number] Exams 09/01/23 07:00 Completed ] Routine XR chest 1V portable [id number] Stat Exams 08/31/23 17:22 Completed XR chest 1V portable [id number] Urgent Exams 09/03/23 07:57 Completed CV. echo complete* [id number] Routine Ultrasound 09/03/23 09:01 Completed Pending at discharge Category Date Time Status Blood Cultures ([facility]) Routine Lab 08/31/23 19:15 Results Blood Cultures ([facility]) Routine Lab 08/31/23 19:18 Results Radiology Impressions Head CT 08/31/23 20:03 IMPRESSION: No acute intracranial finding. ASSESSMENT: ASPECTS ([place] Stroke Program Early CT Score) is 10. Head/Neck CTA 08/31/23 20:03 IMPRESSION: No large vessel occlusion or intracranial aneurysm identified. 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 No hemodynamically significant stenosis or occlusion in the carotid or vertebral arteries on either side of the neck. REFERENCES: NASCET CRITERIA. The degree of stenosis in the cervical segment of the internal carotid artery is based on NASCET criteria. Normal is no stenosis. Mild is less than 50% stenosis. Moderate is 50-69% stenosis. Severe is 70% to 99% stenosis. Total occlusion is no detectable patent lumen. Chest CTA 09/01/23 07:30 IMPRESSION: 1. This study is significantly degraded by motion artifact which impairs ability to evaluate for branch vessel pulmonary embolus particularly in the lung bases and to a lesser extent in the upper lobes. If there is high clinical suspicion for peripheral pulmonary embolus, recommend consideration for repeating this study when patient more able to cooperate with breath holding or referring patient for V/Q scan if available in your facility. There is no central or proximal branch order pulmonary embolus detected 2. 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 Coronary artery calcification 3. Bilateral lung infiltrates and consolidation as described above. This is most prominently involving the left lower lobe 4. Nodular opacity right upper lobe. Follow-up in 6 months' time recommended 5. . Secretions in the trachea, question aspiration 6. Mediastinal and hilar adenopathy. 7. Other incidental findings as outlined above. Laboratory Results WBC 9.73 10^3/uL (3.29-11.43) 09/06/23 04:21 RBC 3.98 10^6/uL (3.85-5.65) 09/06/23 04:21 Hgb 12.00 g/dL (11.27-16.99) 09/06/23 04:21 Hct 37.0 % (36-47) 09/06/23 04:21 MCV 93.0 fl (85-98) 09/06/23 04:21 MCH 30.2 pg (27-33) 09/06/23 04:21 MCHC 32.4 g/dL (30-55) 09/06/23 04:21 RDW 14.2 % (12.1-15.1) 09/06/23 04:21 Plt Count 281 10^3/cmm (157-399) 09/06/23 04:21 MPV 11.4 fL (7.4-10.4) H 09/06/23 04:21 Neut % (Auto) 60.3 % 09/06/23 04:21 Lymph % (Auto) 27.1 % 09/06/23 04:21 [place] % (Auto) 10.6 % 09/06/23 04:21 Eos % (Auto) 0.5 % 09/06/23 04:21 Baso % (Auto) 0.4 % 09/06/23 04:21 Neut # (Auto) 5.86 10^3/uL (1.8-7.7) 09/06/23 04:21 Lymph # (Auto) 2.6 10^3/uL (0.8-4.8) 09/06/23 04:21 [place] # (Auto) 1.0 10^3/uL (0.2-0.9) H 09/06/23 04:21 Eos # (Auto) 0.1 10^3/uL (0.0-0.8) 09/06/23 04:21 Baso # (Auto) 0.0 10^3/uL (0.0-0.1) 09/06/23 04:21 Nucleated RBC % (auto) 0 % 09/06/23 04:21 Nucleated RBCs # 0.0 /100WBC 09/06/23 04:21 D-Dimer 2.42 ug/mLFEU (0-0.59) H 08/31/23 22:18 Sodium 146 mmol/L (136-145) H 09/06/23 04:21 Potassium 3.0 mmol/L (3.5-5.1) L 09/06/23 04:21 Chloride 101 mmol/L (98-107) 09/06/23 04:21 Carbon Dioxide 30 mmol/L (22-29) H 09/06/23 04:21 Anion Gap 18.0 (5-19) 09/06/23 04:21 BUN 34 mg/dL (8-23) H 09/06/23 04:21 Creatinine 0.7 mg/dL (0.5-0.9) 09/06/23 04:21 GFR Calculation Not Reportable 09/06/23 04:21 Glucose 116 mg/dL (65-115) H 09/06/23 04:21 POC Glucose 209 mg/dL (70-110) H 09/06/23 11:02 Calculated Osmolality 311 mOsm/kg (285-295) H 09/06/23 04:21 Calcium 11.0 mg/dL (8.5-10.5) H 09/06/23 04:21 Magnesium 1.8 mg/dL (1.7-2.3) 09/05/23 04:17 Total Bilirubin 0.4 mg/dL (0.15-1.2) 09/06/23 04:21 AST 23 U/L (0-32) 09/06/23 04:21 ALT 18 U/L (0-33) 09/06/23 04:21 Alkaline Phosphatase 55 U/L (35-105) 09/06/23 04:21 C-Reactive Protein 26.5 mg/L (0.0-4.9) H 09/01/23 04:05 NT-Pro-B Natriuret Pep 7422 pg/mL (0-450) H 09/03/23 04:17 Total Protein 7.1 g/dL (6.6-8.7) 09/06/23 04:21 Albumin 3.7 g/dL (3.5-5.2) 09/06/23 04:21 Globulin 3.4 g/dL (1.3-4.6) 09/06/23 04:21 Procalcitonin 0.06 ng/mL (0-0.5) 08/31/23 17:45 Influenza Type A Ag negative (Negative) 08/31/23 18:43 Influenza Type B Ag negative (Negative) 08/31/23 18:43 SARS-CoV-2 Ag (Rapid) negative (Negative) 08/31/23 18:43 Vitals Last Vital Signs Temp 97.2 F L 09/06/23 12:13 Pulse 78 09/06/23 12:13 Resp 18 09/06/23 12:13 BP 146/77 09/06/23 12:13 Pulse Ox 90 09/06/23 12:13 O2 Del Method Room Air 09/06/23 12:13 O2 Flow Rate 2 09/04/23 15:35 Discharge Plan Discharge Patient Disposition: Home Condition: Stable Prescriptions: New aspirin 81 mg Tablet,Delayed Release (Dr/Ec) 81 mg PO DAILY Qty: 30 0RF atorvastatin 40 mg Tablet 40 mg PO BEDTIME Qty: 30 0RF potassium chloride 20 mEq tablet extended release 20 meq PO DAILY Qty: 30 0RF amoxicillin-pot clavulanate 875-125 mg tablet 1 tab PO BID 4 Days Qty: 8 0RF metoprolol succinate [Toprol XL] 25 mg tablet extended release 24 hr 12.5 mg PO DAILY Qty: 30 0RF furosemide [Lasix] 40 mg tablet 40 mg PO DAILY Qty: 30 0RF Continued (DME) nebulizers Misc See Rx Instructions .ROUTE .MEDSUPPLY Qty: 1 0RF Rx Instructions: daily (DME) blood-glucose meter [Blood Glucose Monitoring] Kit See Rx Instructions .ROUTE .MEDSUPPLY Qty: 1 0RF Rx Instructions: As directed (DME) lancets [BD Ultra Fine Lancets] 33 gauge misc See Rx Instructions .ROUTE .MEDSUPPLY Qty: 100 2RF Rx Instructions: once every 2 days (DME) Blood Glucose Test Strip See Rx Instructions .ROUTE .MEDSUPPLY Qty: 100 2RF Rx Instructions: check as needed no more than one time day albuterol sulfate [Ventolin HFA] 90 mcg/actuation HFA aerosol inhaler 2 puff inhalation Q6H PRN (Reason: Shortness Of Breath) promethazine-DM 6.25-15 mg/5 mL syrup 5 ml PO Q6H PRN (Reason: Cough) Qty: 120 0RF acetaminophen [Tylenol Arthritis Pain] 650 mg tablet extended release 650 mg PO Q12H Qty: 60 2RF Rx Instructions: Stop 325mg PRN order fenofibrate nanocrystallized [Tricor] 48 mg tablet 48 mg PO DAILY Qty: 30 2RF isosorbide mononitrate 30 mg tablet extended release 24 hr 15 mg PO BID Qty: 30 2RF lisinopril 5 mg tablet 5 mg PO QDAY Qty: 30 2RF magnesium oxide 400 mg magnesium tablet 400 mg PO DAILY Qty: 30 2RF Thera-M 27-0.4 mg tablet 1 tab PO DAILY Qty: 30 2RF omega-3 fatty acids 1,000 mg capsule 1,000 mg PO BID Qty: 60 2RF ondansetron 8 mg tablet,disintegrating 8 mg PO Q8H PRN (Reason: Nausea) Qty: 10 0RF memantine [Namenda] 10 mg tablet 10 mg PO BID Qty: 60 11RF olanzapine 5 mg tablet 5 mg PO DAILY Qty: 30 11RF melatonin 10 mg capsule 10 mg PO .7pm Qty: 30 5RF paroxetine HCl 20 mg tablet 20 mg PO QDAY 90 Days Qty: 90 2RF Rx Instructions: take at 8PM nitroglycerin 0.4 mg Tablet, Sublingual 0.4 mg SUBLINGUAL Q5M PRN (Reason: Chest Pain) omeprazole 40 mg Capsule,Delayed Release(Dr/Ec) 40 mg PO BID galantamine 8 mg Tablet 4 mg PO BID Rx Instructions: administer with AM and PM meals Reguloid (psyllium husk) 3 gram/5.4 gram Powder See Rx Instructions .ROUTE .COMPLEX Rx Instructions: 1 tbsp orally every morning: mix into at least 8 oz of water or juice before administering Vitamin D2 1,250 mcg (50,000 unit) capsule See Rx Instructions .ROUTE .COMPLEX Rx Instructions: 50,000 unit orally on the 16 of each month Discontinued loperamide 2 mg capsule See Rx Instructions .ROUTE .COMPLEX PRN (Reason: Diarrhea) Rx Instructions: 4 mg orally after 1st loose stool, then 1 capsule after each loose stool as needed up to 4 capsules in 24 hours for diarrhea. budesonide 3 mg Capsule,Delayed,Extend.Release 6 mg PO QAM Discharge Orders: Discharge Order (Routine); Ordered 09/06/23 Ordered By: Virginia Gonzales Other Ambulatory Orders: Basic Metabolic Panel (Routine) Timeframe: 3 Days Facility: [facility] - Location: Lab - Main Lab Ordered By: Virginia Gonzales Referrals: CARDIOLOGY [Provider Group] - 7-10 days () Amina Velasquez MD [Physician] - 2 weeks (Prev. saw reid EF decreased to 40-45% May need stress test We have notified your physician's clinic of the need for a follow-up appointment to be scheduled. If you have not heard from them within the next 2 business days, please call them directly. ) Sharon Nava, [employer] [Primary Care Provider] - 09/15/23 3:00 pm Discharge Diet: As Directed Discharge Activity: Resume usual activity Patient Instructions: Metoprolol (By mouth), Furosemide (By mouth) (Lasix), Potassium Chloride (By mouth), Aspirin (By mouth), Atorvastatin (By mouth), Heart Failure (DC), COPD (Chronic Obstructive Pulmonary Disease) (DC), Opioid Safety Activity Restrictions/Additional Instructions: Extremely thick/puree diet moderate thick liquid diet Discharge Attestations Time Spent in Discharge Care*: greater than 30 min Quality Metrics Clinical Quality Measures [ No reported AMI, CVA or VTE this stay] Coding Level of Care Code 48229 Total time (in minutes) for Discharge: 45 Diagnoses Aspiration pneumonia J69.0 COPD exacerbation J44.1 Acute respiratory failure with hypoxia J96.01 Mental disability F79 Type 2 diabetes mellitus without complication, without long-term current use of insulin E11.9 Diabetes mellitus complication status: without complication Diabetes mellitus terminologist insulin use: without mcfp use Diabetes mellitus type: type 2 Acute systolic heart failure I50.21
[2023-09-06 16:19] LABS: Glucose Point of Care 268 mg/dL (70-110)
[2023-09-06] MEDS: potassium chloride ER 20 mEq Tablet 60 MEQ PO (17:13)
--- NOTE | 2023-09-06 17:16 | PC.NURSE ---
Cannot discharge patient tonight as they do not have the staff to take her. Will come get her tomorrow with staff is available around noon.
[2023-09-06] MEDS: atorvastatin 40 mg Tablet PO (21:08)
[2023-09-06] MEDS: lisinopril 5 mg Tablet 10 MG PO (21:27)
[2023-09-06] MEDS: enoxaparin 40 mg/0.4 mL Syringe SUBCUT (21:27)
[2023-09-06 21:57] LABS: Glucose Point of Care 176 mg/dL (70-110)
[2023-09-07 03:48] VITALS: BP 160/76; PULSE 68; RESP 17; TEMP 36.9; O2SAT 91
[2023-09-07] MEDS: piperacillin-tazobactam 3.375 GM in sodium chloride 0.9% (plus) 50 ML IV (06:01)
[2023-09-07 07:51] LABS: Glucose Point of Care 143 mg/dL (70-110)
[2023-09-07] MEDS: memantine 5 mg tablet 10 MG PO (08:37)
[2023-09-07] MEDS: insulin lispro 100 unit/1 mL SUBCUT (08:37)
[2023-09-07] MEDS: sennosides-docusate Tablet 1 TAB PO (08:38)
[2023-09-07] MEDS: predniSONE 20 mg Tablet 40 MG PO (08:38)
[2023-09-07] MEDS: isosorbide mononitrate ER 30 mg Tablet 15 MG PO (08:38)
[2023-09-07] MEDS: OLANZapine 5 mg TABLET PO (08:38)
[2023-09-07] MEDS: fenofibrate 48 mg Tablet PO (08:38)
[2023-09-07] MEDS: metoprolol tartrate 25 mg Tablet 12.5 MG PO (08:38)
[2023-09-07] MEDS: pantoprazole DR 40 mg Tablet PO (08:38)
[2023-09-07] MEDS: PARoxetine 20 mg Tablet PO (08:39)
[2023-09-07] MEDS: aspirin 81 mg EC Tablet PO (08:39)
[2023-09-07 08:49] VITALS: BP 181/85; PULSE 80; RESP 20; TEMP 37.3; O2SAT 92
--- NOTE | 2023-09-07 11:06 | PC.SOCIAL ---
IMM Updated Updated pt & her caregivers on IMM. No questions voiced. Provided them a copy. Initialed, dated, & timed copy in chart.
== END 2023-09-07 11:10 | disposition skilled nursing facility (03) | DRG 177 ==
LOC: ER 19:34 → MEDSURG 20:46
PROVIDERS: Family Medicine; Internal Medicine; Admitting Provider Internal Medicine; Emergency Provider Emergency Medicine; PCP Nurse Practitioner; Visit Provider Internal Medicine
DX: J69.0 Pneumonitis due to inhalation of food and vomit (principal); I50.21 Acute systolic (congestive) heart failure; J96.01 Acute respiratory failure with hypoxia; G30.9 Alzheimer's disease, unspecified; F02.80 Dementia in other diseases classified elsewhere, unspecified severity, without behavioral disturbance, psychotic disturbance, mood disturbance, and anxiety; J43.9 Emphysema, unspecified; R13.10 Dysphagia, unspecified; I25.10 Atherosclerotic heart disease of native coronary artery without angina pectoris; K21.9 Gastro-esophageal reflux disease without esophagitis; F42.9 Obsessive-compulsive disorder, unspecified; F31.9 Bipolar disorder, unspecified; E11.9 Type 2 diabetes mellitus without complications; M81.0 Age-related osteoporosis without current pathological fracture; R47.1 Dysarthria and anarthria; E87.6 Hypokalemia; Z11.52 Encounter for screening for COVID-19; Z86.73 Personal history of transient ischemic attack (TIA), and cerebral infarction without residual deficits; Z85.3 Personal history of malignant neoplasm of breast
CPT/HCPCS: 36415; 36416; 70450; 70496; 70498; 71045; 71275; 74230; 80048; 80053; 82962; 83735; 83880; 84145; 85025; 85378; 86140; 87040; 87426; 87804; 92526; 92610; 92611; 93005; 93306; 94640; 96365; 96367; 96372; 97116; 97161; 97167; 97530; 99285; J1650; J1815; J1940; J2543; J2920; J3370; J3475; J3480; J7030; J7050; J7512; J7626; Q9967

== ENCOUNTER → 2023-09-29 10:36 | Outpatient (BNVA) | payer MEDICARE, MEDICAID, SELFPAY | PROVIDERS: PCP Nurse Practitioner; Visit Provider Nurse Practitioner | DX: E11.9 Type 2 diabetes mellitus without complications (principal); E55.9 Vitamin D deficiency, unspecified; I10 Essential (primary) hypertension; Z79.899 Other long term (current) drug therapy | CPT/HCPCS: 80053; 82306; 82607; 83036; 83735; 83880; 84443; 85025 ==

== ENCOUNTER 2023-10-19 06:00 | Outpatient (RCR) | payer MEDICARE, MEDICAID, SELFPAY | END 2023-10-29 23:59 | disposition home or self-care (01) | LOC: APT 06:00 | PROVIDERS: PCP Nurse Practitioner; Visit Provider Nurse Practitioner | DX: Z74.09 Other reduced mobility (principal) | CPT/HCPCS: 97110; 97161; 97530 ==

== ENCOUNTER 2023-10-30 06:00 | Outpatient (RCR) | payer MEDICARE, MEDICAID, SELFPAY | END 2023-11-29 23:59 | disposition home or self-care (01) | LOC: APT 06:00 | PROVIDERS: PCP Nurse Practitioner; Visit Provider Nurse Practitioner | DX: Z74.09 Other reduced mobility (principal) | CPT/HCPCS: 97110 ==

== ENCOUNTER → 2023-11-06 09:17 | Outpatient (BNVA) | payer MEDICARE, MEDICAID, SELFPAY | PROVIDERS: PCP Nurse Practitioner; Visit Provider Nurse Practitioner | DX: E55.9 Vitamin D deficiency, unspecified (principal); I10 Essential (primary) hypertension; E11.9 Type 2 diabetes mellitus without complications | CPT/HCPCS: 80053; 80061; 82306; 82607; 83036; 84443; 85025 ==

== ENCOUNTER 2023-12-02 09:42 | Outpatient (CLI) | payer MEDICARE, MEDICAID, SELFPAY ==
--- NOTE | 2023-12-02 11:00 | FL_ITS ---
WS: [id number] EXAMINATION: FL barium swallow modifd [id number] ORDER DATE: 12/02/2023 11:00 AM REASON FOR EXAM: I10 - Essential (primary) hypertension COMPARISON: None available. FLUOROSCOPY TIME: 2min [id number] # OF SPOT FILMS: 8 FINDINGS: The patient had good oral motor control The swallowing mechanism was intact. There is no evidence of penetration or aspiration of the ingeste d materials. IMPRESSION: Intact swallowing mechanism. Please see the speech pathology report for complete evaluation and recom mendations.
== END 2023-12-02 09:43 | disposition home or self-care (01) ==
LOC: RAD 09:43
PROVIDERS: PCP Nurse Practitioner; Visit Provider Nurse Practitioner
DX: I10 Essential (primary) hypertension (principal); K21.9 Gastro-esophageal reflux disease without esophagitis
CPT/HCPCS: 74230; 92611

== ENCOUNTER → 2024-02-24 12:38 | Outpatient (BNVA) | payer MEDICARE, MEDICAID, SELFPAY | PROVIDERS: PCP Nurse Practitioner; Visit Provider Specialist | DX: R29.90 Unspecified symptoms and signs involving the nervous system (principal); G30.9 Alzheimer's disease, unspecified; F02.80 Dementia in other diseases classified elsewhere, unspecified severity, without behavioral disturbance, psychotic disturbance, mood disturbance, and anxiety | CPT/HCPCS: 99214 ==

== ENCOUNTER → 2024-05-09 08:33 | Outpatient (BNVA) | payer MEDICARE, MEDICAID, SELFPAY | PROVIDERS: PCP Nurse Practitioner; Visit Provider Nurse Practitioner | DX: E11.9 Type 2 diabetes mellitus without complications (principal); E55.9 Vitamin D deficiency, unspecified | CPT/HCPCS: 80053; 80061; 82306; 85025 ==

== ENCOUNTER → 2024-05-11 12:59 | Outpatient (BNVA) | payer MEDICARE, MEDICAID, SELFPAY | PROVIDERS: PCP Nurse Practitioner; Visit Provider Internal Medicine | DX: I44.0 Atrioventricular block, first degree (principal); I49.8 Other specified cardiac arrhythmias; R07.9 Chest pain, unspecified | CPT/HCPCS: 93005; 99204 ==

== ENCOUNTER 2024-06-10 09:17 | Outpatient (CLI) | payer MEDICARE, MEDICAID, SELFPAY ==
--- NOTE | 2024-06-10 10:00 | USCV_ITS ---
Kristi Marinelli Age: 83 Gender: F : 1940 Exam Date: 06/10/2024 10:01 Ordering Phys: Devan Escobedo M.D ([email or web address]) Technologist: [place] [facility] [place]: BP: / HR: 52 Rhythm: Sinus Technical Quality: Adequate MEASUREMENTS (Male / Female) Normal Values 2D ECHO LVOT Diameter 2.1 cm LV Ejection Fraction MOD 4C 63.7 % LV Ejection Fraction MOD 2C 58.0 % LV Ejection Fraction 2C AL 58.1 % LA Diameter 3.8 cm RA Systolic Volume 4C AL 16.5 ml RA Systolic Volume 4C MOD 16.5 ml LA Sys Volume AL 43.8 cm cubed LA Sys Volume Index AL 26.1 cm cubed/m squared Aorta at Sinotubular Diameter 2.3 cm IVC Diameter 1.6 cm M-MODE LA Ao Ratio MM 1.7 AV Cusp Separation MM 1.7 cm DOPPLER AV Peak Velocity 150.0 cm/s AV Area Cont Eq vti 3.3 cm squared AV Area Cont Eq pk 2.7 cm squared MV Peak Velocity 271.3 cm/s MV Area PHT 2.2 cm squared Mitral E to A Ratio 0.6 TV Peak Velocity 224.5 cm/s TR Peak Velocity 265.0 cm/s TR Peak Gradient 28.1 mmHg TV Peak E Velocity 63.0 cm/s Right Atrial Pressure 3.0 mmHg Pulmonary Artery Systolic Pressu 31.1 mmHg PV Peak Velocity 115.5 cm/s FINDINGS Left Ventricle Normal left ventricular size, systolic function and wall thickness, with no regional wall motion abnormalities. Left ventricular ejection fraction is estimated at 60 %. Grade I/IV diastolic dysfunction (abnormal relaxation filling pattern), normal to mildly elevated filling pressures. Right Ventricle The right ventricle is normal in size and function. Right Atrium The right atrium is normal in size. Left Atrium The left atrium is normal in size. Mitral Valve Structurally normal mitral valve without significant stenosis or prolapse. There is no mitral regurgitation. Aortic Valve Structurally normal aortic valve without significant sclerosis or stenosis. There is no aortic regurgitation. Tricuspid Valve Structurally normal tricuspid valve without significant stenosis or regurgitation. Pulmonary artery systolic pressure is normal. Pulmonic Valve Structurally normal pulmonic valve without significant stenosis. There is no pulmonic regurgitation. Pericardium Normal pericardium without effusion. Aorta Normal ascending aorta dimension. IVC The inferior vena cava appears normal. CONCLUSIONS Normal left ventricular size, systolic function and wall thickness, with no regional wall motion abnormalities. Left ventricular ejection fraction is estimated at 60 %. Grade I/IV diastolic dysfunction (abnormal relaxation filling pattern), normal to mildly elevated filling pressures. No significant valve abnormalities. There is no pericardial effusion. Pulmonary artery systolic pressure is within normal limits. Right atrial pressure is around 5 mm of mercury. Kalyn Tyler MD (Electronically Signed) Final Date: 13 June 2024 13:37 S
== END 2024-06-10 09:18 | disposition home or self-care (01) ==
LOC: RAD 09:19
PROVIDERS: PCP Nurse Practitioner; Visit Provider Internal Medicine
DX: I50.30 Unspecified diastolic (congestive) heart failure (principal); R07.9 Chest pain, unspecified; R06.02 Shortness of breath
CPT/HCPCS: 93306

== ENCOUNTER → 2024-11-15 14:48 | Outpatient (BNVA) | payer MEDICARE, MEDICAID, SELFPAY | PROVIDERS: PCP Nurse Practitioner; Visit Provider Internal Medicine | DX: I10 Essential (primary) hypertension (principal); E11.9 Type 2 diabetes mellitus without complications; E78.2 Mixed hyperlipidemia | CPT/HCPCS: 99213 ==

== ENCOUNTER → 2024-11-22 10:03 | Outpatient (BNVA) | payer MEDICARE, MEDICAID, SELFPAY | PROVIDERS: PCP Nurse Practitioner; Visit Provider Nurse Practitioner | DX: I10 Essential (primary) hypertension (principal); E78.2 Mixed hyperlipidemia; E11.9 Type 2 diabetes mellitus without complications | CPT/HCPCS: 80053; 83036; 84443; 85025 ==

== ENCOUNTER → 2024-11-24 08:36 | Outpatient (BNVA) | payer MEDICARE, MEDICAID, SELFPAY | PROVIDERS: PCP Nurse Practitioner; Visit Provider Nurse Practitioner | DX: E11.9 Type 2 diabetes mellitus without complications (principal) | CPT/HCPCS: 81003 ==

== ENCOUNTER → 2025-02-22 12:43 | Outpatient (BNVA) | payer MEDICARE, MEDICAID, SELFPAY | PROVIDERS: PCP Nurse Practitioner; Visit Provider Specialist | DX: G30.9 Alzheimer's disease, unspecified (principal); F02.80 Dementia in other diseases classified elsewhere, unspecified severity, without behavioral disturbance, psychotic disturbance, mood disturbance, and anxiety; R29.90 Unspecified symptoms and signs involving the nervous system | CPT/HCPCS: 99213 ==

== ENCOUNTER → 2025-03-22 15:58 | Outpatient (BNVA) | payer MEDICARE, MEDICAID, SELFPAY | PROVIDERS: PCP Nurse Practitioner; Visit Provider Nurse Practitioner | DX: E55.9 Vitamin D deficiency, unspecified (principal); E78.2 Mixed hyperlipidemia | CPT/HCPCS: 80053; 80061; 82306 ==